=== PATIENT | male | born 1960 | race Caucasian/White ===

== ENCOUNTER 2020-01-17 20:04 | Inpatient (IN) ==
[~2020-01-17 20:04] MED LIST: PATIENT'S HEIGHT AND/OR WEIGHT NEEDED SCH
[2020-01-17] MEDS ORDERED: SUCCINYLCHOLINE CHLORIDE 20 MG/ML 10 ML VIAL IV ONE (20:05)
[2020-01-17] MEDS ORDERED: ETOMIDATE 2 MG/ML 20 ML VIAL IV ONE ×2 (20:05→20:19)
[2020-01-17] MEDS ORDERED: RAPID SEQUENCE INDUCTION BAG ONE (20:16)
[2020-01-17] MEDS ORDERED: SUCCINYLCHOLINE CHLORIDE 20 MG/ML 10 ML VIAL IV STA (20:19)
[2020-01-17] MEDS ORDERED: STAT IV Infusion **Titration per Protocol STA (20:21)
[2020-01-17] MEDS ORDERED: PROPOFOL IV EMULSION 10 MG/ML 100 ML VIAL IV ONE (20:27)
[2020-01-17] MEDS ORDERED: SODIUM CHLORIDE 0.9% 1000ML 2,000 ML IV ONE (20:30)
[2020-01-17 20:36] LABS: Hematocrit (blood only) 43.6 % (42-52); Mean Corpuscular Hemoglobin 32.8 pg (25-34); Mean Corpuscular Hgb Conc 32.1 g/dL (32-36); Mean Corpuscular Volume 102.1 fL (80-100); Mean Platelet Volume 9.4 fL (7.4-10.4); Platelet Count 277 K/uL (130-400); RDW Coefficient of Variation 13.7 % (11.5-14.5); RDW Standard Deviation 51.5 fL (36.4-46.3); Red Blood Count 4.27 M/uL (4.7-6.1); White Blood Count 19.45 K/uL (4.8-10.8)
[2020-01-17] MEDS ORDERED: propofoL 1,000 MG/100 ML VIAL IV SCH (20:38)
[2020-01-17 20:45] LABS: iSTAT Creatinine 0.8 mg/dl (0.6-1.3); iSTAT Hemoglobin 15.3 g/dl (14.0-18.0); iSTAT Ionized Calcium 1.28 mmol/l (1.12-1.32); iSTAT Potassium 3.4 mmol/L (3.3-5.0)
--- NOTE | 2020-01-17 20:51 | XRay Report ---
XR chest 1V portable CLINICAL HISTORY: post intubation RESPIRATORY FAILURE COMPARISON STUDY: 05/08/2008 FINDINGS: The heart is borderline enlarged. There is a nasogastric tube which passes into the stomach . There is an endotracheal tube positioned 6 cm above the irene. Underlying emphysema is suspected. There are scattered interstitial opacities likely atelectatic. There is no lobar consolidation. There is no overt failure.[ IMPRESSION: 1. Endotracheal tube 6 cm above the irene 2. Nasogastric tube within the stomach 3. Scattered interstitial opacities likely atelectatic ACT 112: Negative or not required by law. Electronically signed by: Hubert Crooks M.D. 01/17/2020 8:50 PM
[2020-01-17 20:52] LABS: Partial Thromboplastin Ratio 0.9; Partial Thromboplastin Time 25.7 Seconds (21.0-31.0); Prothrombin Time 10.5 Seconds (9.0-12.0)
[2020-01-17 20:55] LABS: Alanine Aminotransferase 61 U/L (12-78); Albumin Level 3.7 gm/dl (3.4-5.0); Aspartate Aminotransferase 26 U/L (15-37); BUN Creatinine Ratio 8.3 (10-20); Blood Urea Nitrogen 10 mg/dl (7-18); Calcium 8.8 mg/dl (8.5-10.1); Carbon Dioxide 22 mmol/L (21-32); Chloride 105 mmol/L (98-107); Creatinine Clr Calc Pharmacy 71.5 ml/min; Est GFR (African American) 78.1; Est GFR (Non-African American) 67.4; Glucose 248 mg/dl (70-99); Magnesium 2.1 mg/dl (1.8-2.4); Potassium 3.3 mmol/L (3.5-5.1); Sodium 139 mmol/L (136-145)
--- NOTE | 2020-01-17 20:55 | Emergency Department Note ---
ED Provider Note NAME: IGNACIO ELLISON AGE: 59 SEX: M ARRIVES VIA: Ambulance INFORMANT: [EMS][Brother ] ED PROVIDER(S): [Titi Chandler MD] CHIEF COMPLAINT: Unresponsive IMPRESSION: Obtundation, Seizures, Aspiration pneumonia, Acidemia MEDICAL DECISION MAKING: The patient is a 59-year-old gentleman with a past medical bipolar disorder, narcissistic personality disorder, multiple prior episodes of overdoses with last admission in 2005 for overdose of Seroquel and prior overdoses of lithium and Tegretol who presents emergency department after becoming unresponsive when he was in the car with his brother, foaming at the mouth with no overt seizure- like activity reported but continued to be obtunded upon arrival by EMS and upon transfer the patient did have fasciculations of his left lower leg for which she was given 2 mg of Ativan with improvement. On arrival the patient is obtunded and unresponsive to painful stimulus. He does exhibit some subtle fasciculation of eyelids and eyes but otherwise no convulsions noted. There is no response to corneal stimulus though there is report of a history of being blind. The pa catie's GCS persisted to be 6 and so decision was made to intubate for airway protection after EMS report from POA that they would be okay with intubation. Intubation was performed without difficulty per procedure note. WBC 19.4, nonspecific possibly related to seizure activity. H/H and platelets within normal limits. VBG with pH of 7.07 with PCO2 of 79 prior to intubation. Chemistry without metabolic acidosis. No anion gap elevation. Creatinine 1.1. Glucose initially 250 however again without metabolic acidosis and improved to 160 after IV fluid hydration. Lactate 2.9. Troponin negative/undetectable. CPK within normal limits. UA without evidence of infection. Aspirin and Tyleno l levels were negative. Valproic acid level undetectable. [place] level 0.4, subtherapeutic. Marijuana screen was positive. Alcohol was negative. CT head was negative for ICH or acute process. CTA of the head and neck was also performed and unremarkable. This x-ray demonstrated scattered opacities which could likely be atelectatic however given the patient's obtundation and leukocytosis concern for possible aspiration. Patient was treated empirically with Zosyn. On discussion with ICU team and admitting team given no clear explanation for patient's presentation we agreed to proceed with lumbar puncture. Consent was obtained by from the brother Bean Ellison ([phone]) via phone who consents for the procedure. LP was successful per procedure note with clear CSF drawn with opening a pressure of 20 mm H2O. Of note, upon further discussion with brother he does report that the patient had full access to all his medications and so acknowledges that an overdose may have been possible though denies that the patient was feeling depressed or hopeless. CSF WBC 0, Glc 93, Protein 54. Biofire negative. Management per admitting team. Triage Nursing notes reviewed and agree them. [Prior medical records reviewed] Differential diagnosis: Infection, hypoglycemia, electrolyte abnormalities, overdose, toxicologic, card iac sources, intracerebral event, neurologic, trauma, as well as other pathologies. ER treatment provided: See below Diagnostics interpreted by me: ECG: Sinus Tachycardia, 113 bpm, incomplete RBBB, No ST elevation or depression. QTc 427, QRS 104 Cardiac Monitoring: Sinus tachycardia 113, no ectopy. Laboratory studies: [See below] [] Imaging studies: [See below] [] Consultation(s): [none] HPI: The patient is a 59-year-old gentleman with a past medical bipolar disorder, narcissistic personality disorder, multiple prior episodes of overdoses with last admission in 2005 for overdose of Seroquel and prior overdoses of lithium and Tegretol who presents emergency department after becoming unresponsive when he was in the car with his brother, foaming at the mouth with no overt seizure-like activity reported but continued to be obtunded upon arrival by EMS and upon transfer the patient did have fasciculations of his left lower leg for which she was given 2 mg of Ativan with improvement. HPI limited 2/2 patient's condition. Onset as abrupt. No known provoking factors. ROS: UTO due to patient's condition. PAST MEDICAL HISTORY:[See Below] PAST SURGICAL HISTORY:[See Below] FAMILY HISTORY:[See Below] SOCIAL HISTORY:[See Below] HOME MEDICATIONS:[See Below] ALLERGIES:[See Below] VITALS:[See Below] PHYSICAL EXAMINATION: GENERAL: Obtunded, Ill-appearing. HENT: Normocephalic, atraumatic. Oropharynx with dry mucous membranes and otherwise unremarkable. Poor dentition. EYES: Normal conjunctiva. Sclera non-icteric. 3mm and fixed. Subtle eyelid fasciculation. No corneal reflex. NECK: Supple. No nuchal rigidity. No JVD. RESPIRATORY: Scant intermittent rhonchi bilaterally and otherwise clear. CARDIAC: Tachycardic rate, normal rhythm. Extremities warm and well perfused. Pulses equal. ABDOMEN: Soft, non-distended. No tenderness to palpation. No rebound or guarding. No masses. RECTAL: Deferred. MUSCULOSKELETAL: Chest examination reveals no tenderness. The back is symmetrical on inspection without obvious abnormality. There is no CVA t enderness to palpation. No joint edema. LOWER EXTREMITIES: Calves are equal size bilaterally. No edema. No discoloration. NEURO: Eyes open, nonverbal, no motor response. GCS 6. No rigidity, DTRs wnl. 2 beats of clonus BLE. SKIN: No rash or jaundice noted. ED COURSE: Procedures: Endotracheal Intubation Indication obtundation/airway protection. The patient was on 100% oxygen via NRB prior to the procedure. Suction, airway equipment, RSI drugs, respiratory equipment, and appropriate personnel were prepared prior to the initiation of the procedure. A time out was taken. Induction was performed with etomidate and paralyzed with succinylcholine. After observing the clinical benefit of the medications, the airway was easily visualized utilizing direct visualization with MAC 3. A 8.0 size ETT tube was placed atraumatically to 22 cm using standard technique. The cuff inflated without signs of malfunction. There were bilateral breath sounds, positive colormetric change, no gastric sounds, a good capnography waveform, and post procedure pulse oximetry was 100% %. Post intubation sedation and paralysis was administered using propofol. There were no complications. Lumbar Puncture Indication: Obtundation / Seizures Verbal consent was obtained after the risks and benefits were explained, including but not limited to headache, bleeding/clotting, scarring, infection, pain, and bone/joint/nerve damage. At this time, the risks of the procedure are less than the risks of NOT performing the procedure. A time out was taken and the correct patient and site identified. The patient was placed in the right lateral decubitus position and the back was prepped with chlorhexidine and draped in the standard fashion. The L3 intervertebral space was identified, anesthetized locally with 1% lidocaine without epinephrine, and the spinal needle was inserted through the skin with the bevel parallel to the dural fibers. The needle was carefully advanced into the lumbar cistern with opening pressure of 20 mm H20 and 4 tubes of 26cc of clear CSF was obtained. The stylet was replaced and the needle was removed. A bandaid was placed and the patient was placed in the supine position. The patient tolerated the procedure well and there were no complications. Sent for Cell count, glucose, protein, GS and cx, as well as Biofire panel. [Critical Care:] I have personally spent greater than 135 minutes of critical care time in the direct management of this patient. This includes bedside care, interpretation of diagnostic studies, and testing, discussion with consultants, patient, and family members, and other required patient management activities. This 135 minutes is in excess of all separately billable procedures. Impression & Plan Obtundation, Seizures, Aspiration pneumonia, Acidemia Past Med/Surg History Medical History Bipolar disorder History of repeated overdose Social History Preferred Language: Dutch Communication Ability: unknown pt Current Living Situation: Family Other Information That Helps Us Care for You: No Smoking Status: Unknown if ever smoked Results & Data Vital Signs Vital Signs - 24 hr 01/17/20 20:05 01/17/20 20:15 01/17/20 20:38 Temperature Pulse Rate 114 H 99 H Pulse Rate from SpO2 Sensor 98 H Pulse Rhythm Regular Pulse Strength Normal Respiratory Rate 25 H 16 Respiratory Pattern Agonal Blood Pressure 175/86 H 126/70 Blood Pressure Mean 115 85 Pulse Oximetry 95 86 L 95 Oxygen Delivery Method Non-rebreather Room Air Oxygen Flow Rate 15 Fraction of Inspired Oxygen Sepsis Recent Fever Within 48 Hours No Sepsis Action Taken by Nursing No Action Required 01/17/20 20:40 01/17/20 20:41 01/17/20 21:01 Temperature Pulse Rate 98 H 102 H 102 H Pulse Rate from SpO2 Sensor 100 H 101 H Pulse Rhythm Pulse Strength Respiratory Rate 14 21 21 Respiratory Pattern Blood Pressure 123/67 126/70 Blood Pressure Mean 88 89 Pulse Oximetry 95 96 96 Oxygen Delivery Method Mechanical Vent Mechanical Vent Oxygen Flow Rate Fraction of Inspired Oxygen 40 50 40 Sepsis Recent Fever Within 48 Hours Sepsis Action Taken by Nursing 01/17/20 21:10 01/17/20 21:20 01/17/20 21:30 Temperature Pulse Rate 100 H 96 H 94 H Pulse Rate from SpO2 Sensor 100 H 96 H 93 H Pulse Rhythm Pulse Strength Respiratory Rate 16 15 16 Respiratory Pattern Blood Pressure 122/69 117/67 120/69 Blood Pressure Mean 90 84 90 Pulse Oximetry 96 96 96 Oxygen Delivery Method Mechanical Vent Mechanical Vent Mechanical Vent Oxygen Flow Rate Fraction of Inspired Oxygen 40 40 40 Sepsis Recent Fever Within 48 Hours Sepsis Action Taken by Nursing 01/17/20 21:40 01/17/20 21:50 01/17/20 22:00 Temperature Pulse Rate 90 90 86 Pulse Rate from SpO2 Sensor 90 90 86 Pulse Rhythm Pulse Strength Respiratory Rate 14 20 20 Respiratory Pattern Blood Pressure 116/66 115/69 108/68 Blood Pressure Mean 84 82 76 Pulse Oximetry 96 96 98 Oxygen Delivery Method Oxygen Flow Rate Fraction of Inspired Oxygen Sepsis Recent Fever Within 48 Hours Sepsis Action Taken by Nursing 01/17/20 22:10 01/17/20 22:20 01/17/20 22:30 Temperature Pulse Rate 82 79 74 Pulse Rate from SpO2 Sensor 82 79 74 Pulse Rhythm Pulse Strength Respiratory Rate 20 20 20 Respiratory Pattern Blood Pressure 108/67 103/66 102/65 Blood Pressure Mean 79 78 74 Pulse Oximetry 99 99 98 Oxygen Delivery Method Oxygen Flow Rate Fraction of Inspired Oxygen Sepsis Recent Fever Within 48 Hours Sepsis Action Taken by Nursing 01/17/20 22:35 01/17/20 22:40 01/17/20 22:50 Temperature 36.6 C Pulse Rate 75 77 72 Pulse Rate from SpO2 Sensor 77 72 Pulse Rhythm Pulse Strength Respiratory Rate 20 20 22 Respiratory Pattern Blood Pressure 108/69 94/59 L Blood Pressure Mean 82 78 Pulse Oximetry 99 98 95 Oxygen Delivery Method Oxygen Flow Rate Fraction of Inspired Oxygen 40 Sepsis Recent Fever Within 48 Hours Sepsis Action Taken by Nursing 01/17/20 22:52 01/17/20 23:00 Temperature Pulse Rate 70 73 Pulse Rate from SpO2 Sensor 71 72 Pulse Rhythm Pulse Strength Respiratory Rate 20 24 Respiratory Pattern Blood Pressure 109/68 100/55 L Blood Pressure Mean 82 71 Pulse Oximetry 95 98 Oxygen Delivery Method Oxygen Flow Rate Fraction of Inspired Oxygen Sepsis Recent Fever Within 48 Hours Sepsis Action Taken by Detention Medications Current Medication List: was personally reviewed by me Laboratory Data Attestation: I reviewed the patient's lab results. Result diagrams: 01/17/20 20:05 01/17/20 20:05 Lab Results 03/15/20 03/15/20 03/15/20 Range/Units 20:05 20:05 20:05 WBC 19.45 H (4.8-10.8) K/uL RBC 4.27 L (4.7-6.1) M/uL Hgb 14.0 (14.0-18.0) g/dL POC Hgb (14.0-18.0) g/dl Hct 43.6 (42-52) % POC Hct (42-52) % MCV 102.1 H (80-100) fL MCH 32.8 (25-34) pg MCHC 32.1 (32-36) g/dL RDW Std Deviation 51.5 H (36.4-46.3) fL RDW Coeff of Joey 13.7 (11.5-14.5) % Plt Count 277 (130-400) K/uL MPV 9.4 (7.4-10.4) fL Immature Gran % (Auto) 1.7 % Neut % (Auto) 71.8 % Lymph % (Auto) 15.2 % [place] % (Auto) 6.2 % Eos % (Auto) 4.4 % Baso % (Auto) 0.7 % Immature Gran # (Auto) 0.34 H (0.00-0.02) K/uL Neut # (Auto) 13.98 H (1.4-6.5) K/uL Lymph # (Auto) 2.95 (1.2-3.4) K/uL [place] # (Auto) 1.20 H (0.11-0.59) K/uL Eos # (Auto) 0.85 H (0-0.5) K/uL Baso # (Auto) 0.13 (0-0.2) K/uL PT 10.5 (9.0-12.0) Seconds INR 1.0 (0.9-1.1) APTT 25.7 (21.0-31.0) Seconds PTT Ratio 0.9 POC pH (7.35-7.45) POC pCO2 (35-46) mmHg POC pO2 (80-95) mmHg POC HCO3 (19-24) adir/L POC Base Excess (-9-1.8) adri/L VBG pH (7.36-7.41) VBG pCO2 (38-50) mmHg VBG pO2 mmHg VBG HCO3 mmol/L VBG O2 Saturation % VBG Base Excess mEq/L Barometric Pressure mm/Hg POC Sodium (135-144) mmol/L Sodium 139 (136-145) mmol/L POC Potassium (3.3-5.0) mmol/L Potassium 3.3 L (3.5-5.1) mmol/L POC Chloride (101-112) mmol/L Chloride 105 (98-107) mmol/L Carbon Dioxide 22 (21-32) mmol/L POC Total CO2 (24-31) mEq/l Anion Gap 12.0 H (3-11) POC Anion Gap (16-25) mmol/L POC BUN (7-18) mg/dl BUN 10 (7-18) mg/dl Creatinine 1.17 (0.6-1.4) mg/dl POC Creatinine (0.6-1.3) mg/dl Est Cr Clr Drug Dosing 71.5 ml/min Est GFR ( Amer) 78.1 Est GFR (Non-Af Amer) 67.4 BUN/Creatinine Ratio 8.3 L (10-20) Glucose 248 H (70-99) mg/dl POC Glucose (70-99) mg/dl POC Glucose (other) (70-99) mg/dl Lactate (0.4-2.0) mmol/L Calcium 8.8 (8.5-10.1) mg/dl POC Ioniz Calcium Derek (1.12-1.32) mmol/l Phosphorus 5.4 H (2.5-4.9) mg/dl Magnesium 2.1 (1.8-2.4) mg/dl Total Bilirubin 0.2 (0.2-1) mg/dl AST 26 (15-37) U/L ALT 61 (12-78) U/L Alkaline Phosphatase 110 (45-117) U/L Total Creatine Kinase 162 (39-308) U/L Troponin I < 0.015 (0-0.045) ng/ml Total Protein 8.0 (6.4-8.2) gm/dl Albumin 3.7 (3.4-5.0) gm/dl Globulin 4.3 H (2.5-4.0) gm/dl Albumin/Globulin Ratio 0.9 (0.9-2) TSH 7.670 H (0.300-4.500) uIu/ml Free T4 0.74 L (0.8-1.6) ng/dl Urine Color Urine Appearance (Clear) Urine pH (4.5-7.5) Ur Specific [place] (1.000-1.030) Urine Protein (Negative) Urine Glucose (UA) (Negative) Urine Ketones (Negative) Urine Blood (Negative) Urine Nitrite (Negative) Urine Bilirubin (Negative) Urine Urobilinogen (Negative) Ur Leukocyte Esterase (Negative) Urine RBC (0-4) /hpf Urine WBC (0-5) /hpf Ur Epithelial Cells (0-5) /lpf Amorphous Sediment (None Prsent) Urine Bacteria (Negative) Urine Sperm (None Prsent) Salicylates (2.8-20) mg/dl Urine Opiates Screen (Neg) Ur Methadone, Qual (Neg) Acetaminophen (10-30) ug/ml Urine Barbiturates (Neg) Valproic Acid (50-100) mcg/ml Ur Phencyclidine (PCP) (Neg) U Amphetamin/Meth Scrn (Neg) MDMA (Ecstasy) Screen (Neg) U Benzodiazepines Scrn (Neg) [place] (0.6-1.2) mmol/L Ur Cocaine Metabolite (Neg) U Marijuana (THC) Screen (Neg) Ethyl Alcohol mg/dL (0-3) mg/dl 01/17/20 01/17/20 01/17/20 Range/Units 20:05 20:12 20:32 WBC (4.8-10.8) K/uL RBC (4.7-6.1) M/uL Hgb (14.0-18.0) g/dL POC Hgb 15.3 (14.0-18.0) g/dl Hct (42-52) % POC Hct 45 (42-52) % MCV (80-100) fL MCH (25-34) pg MCHC (32-36) g/dL RDW Std Deviation (36.4-46.3) fL RDW Coeff of Joey (11.5-14.5) % Plt Count (130-400) K/uL MPV (7.4-10.4) fL Immature Gran % (Auto) % Neut % (Auto) % Lymph % (Auto) % [place] % (Auto) % Eos % (Auto) % Baso % (Auto) % Immature Gran # (Auto) (0.00-0.02) K/uL Neut # (Auto) (1.4-6.5) K/uL Lymph # (Auto) (1.2-3.4) K/uL [place] # (Auto) (0.11-0.59) K/uL Eos # (Auto) (0-0.5) K/uL Baso # (Auto) (0-0.2) K/uL PT (9.0-12.0) Seconds INR (0.9-1.1) APTT (21.0-31.0) Seconds PTT Ratio POC pH (7.35-7.45) POC pCO2 (35-46) mmHg POC pO2 (80-95) mmHg POC HCO3 (19-24) adri/L POC Base Excess (-9-1.8) adri/L VBG pH (7.36-7.41) VBG pCO2 (38-50) mmHg VBG pO2 mmHg VBG HCO3 mmol/L VBG O2 Saturation % VBG Base Excess mEq/L Barometric Pressure mm/Hg POC Sodium 139 (135-144) mmol/L Sodium (136-145) mmol/L POC Potassium 3.4 (3.3-5.0) mmol/L Potassium (3.5-5.1) mmol/L POC Chloride 105 (101-112) mmol/L Chloride (98-107) mmol/L Carbon Dioxide (21-32) mmol/L POC Total CO2 24 (24-31) mEq/l Anion Gap (3-11) POC Anion Gap 14.0 L (16-25) mmol/L POC BUN 9 (7-18) mg/dl BUN (7-18) mg/dl Creatinine (0.6-1.4) mg/dl POC Creatinine 0.8 (0.6-1.3) mg/dl Est Cr Clr Drug Dosing ml/min Est GFR ( Amer) Est GFR (Non-Af Amer) BUN/Creatinine Ratio (10-20) Glucose (70-99) mg/dl POC Glucose 207 H (70-99) mg/dl POC Glucose (other) 252 H (70-99) mg/dl Lactate (0.4-2.0) mmol/L Calcium (8.5-10.1) mg/dl POC Ioniz Calcium Derek 1.28 (1.12-1.32) mmol/l Phosphorus (2.5-4.9) mg/dl Magnesium (1.8-2.4) mg/dl Total Bilirubin (0.2-1) mg/dl AST (15-37) U/L ALT (12-78) U/L Alkaline Phosphatase (45-117) U/L Total Creatine Kinase (39-308) U/L Troponin I (0-0.045) ng/ml Total Protein (6.4-8.2) gm/dl Albumin (3.4-5.0) gm/dl Globulin (2.5-4.0) gm/dl Albumin/Globulin Ratio (0.9-2) TSH (0.300-4.500) uIu/ml Free T4 (0.8-1.6) ng/dl Urine Color Urine Appearance (Clear) Urine pH (4.5-7.5) Ur Specific [place] (1.000-1.030) Urine Protein (Negative) Urine Glucose (UA) (Negative) Urine Ketones (Negative) Urine Blood (Negative) Urine Nitrite (Negative) Urine Bilirubin (Negative) Urine Urobilinogen (Negative) Ur Leukocyte Esterase (Negative) Urine RBC (0-4) /hpf Urine WBC (0-5) /hpf Ur Epithelial Cells (0-5) /lpf Amorphous Sediment (None Prsent) Urine Bacteria (Negative) Urine Sperm (None Prsent) Salicylates < 1.7 L (2.8-20) mg/dl Urine Opiates Screen (Neg) Ur Methadone, Qual (Neg) Acetaminophen < 2 L (10-30) ug/ml Urine Barbiturates (Neg) Valproic Acid < 3 L (50-100) mcg/ml Ur Phencyclidine (PCP) (Neg) U Amphetamin/Meth Scrn (Neg) MDMA (Ecstasy) Screen (Neg) U Benzodiazepines Scrn (Neg) [place] 0.4 L (0.6-1.2) mmol/L Ur Cocaine Metabolite (Neg) U Marijuana (THC) Screen (Neg) Ethyl Alcohol mg/dL (0-3) mg/dl 01/17/20 01/17/20 01/17/20 Range/Units 21:05 21:05 21:11 WBC (4.8-10.8) K/uL RBC (4.7-6.1) M/uL Hgb (14.0-18.0) g/dL POC Hgb (14.0-18.0) g/dl Hct (42-52) % POC Hct (42-52) % MCV (80-100) fL MCH (25-34) pg MCHC (32-36) g/dL RDW Std Deviation (36.4-46.3) fL RDW Coeff of Joey (11.5-14.5) % Plt Count (130-400) K/uL MPV (7.4-10.4) fL Immature Gran % (Auto) % Neut % (Auto) % Lymph % (Auto) % [place] % (Auto) % Eos % (Auto) % Baso % (Auto) % Immature Gran # (Auto) (0.00-0.02) K/uL Neut # (Auto) (1.4-6.5) K/uL Lymph # (Auto) (1.2-3.4) K/uL [place] # (Auto) (0.11-0.59) K/uL Eos # (Auto) (0-0.5) K/uL Baso # (Auto) (0-0.2) K/uL PT (9.0-12.0) Seconds INR (0.9-1.1) APTT (21.0-31.0) Seconds PTT Ratio POC pH (7.35-7.45) POC pCO2 (35-46) mmHg POC pO2 (80-95) mmHg POC HCO3 (19-24) adri/L POC Base Excess (-9-1.8) adri/L VBG pH (7.36-7.41) VBG pCO2 (38-50) mmHg VBG pO2 mmHg VBG HCO3 mmol/L VBG O2 Saturation % VBG Base Excess mEq/L Barometric Pressure mm/Hg POC Sodium (135-144) mmol/L Sodium (136-145) mmol/L POC Potassium (3.3-5.0) mmol/L Potassium (3.5-5.1) mmol/L POC Chloride (101-112) mmol/L Chloride (98-107) mmol/L Carbon Dioxide (21-32) mmol/L POC Total CO2 (24-31) mEq/l Anion Gap (3-11) POC Anion Gap (16-25) mmol/L POC BUN (7-18) mg/dl BUN (7-18) mg/dl Creatinine (0.6-1.4) mg/dl POC Creatinine (0.6-1.3) mg/dl Est Cr Clr Drug Dosing ml/min Est GFR ( Amer) Est GFR (Non-Af Amer) BUN/Creatinine Ratio (10-20) Glucose (70-99) mg/dl POC Glucose (70-99) mg/dl POC Glucose (other) (70-99) mg/dl Lactate 2.9 H* (0.4-2.0) mmol/L Calcium (8.5-10.1) mg/dl POC Ioniz Calcium Derek (1.12-1.32) mmol/l Phosphorus (2.5-4.9) mg/dl Magnesium (1.8-2.4) mg/dl Total Bilirubin (0.2-1) mg/dl AST (15-37) U/L ALT (12-78) U/L Alkaline Phosphatase (45-117) U/L Total Creatine Kinase (39-308) U/L Troponin I (0-0.045) ng/ml Total Protein (6.4-8.2) gm/dl Albumin (3.4-5.0) gm/dl Globulin (2.5-4.0) gm/dl Albumin/Globulin Ratio (0.9-2) TSH (0.300-4.500) uIu/ml Free T4 (0.8-1.6) ng/dl Urine Color Yellow Urine Appearance Slightly Cloudy (Clear) Urine pH 6.0 (4.5-7.5) Ur Specific [place] 1.025 (1.000-1.030) Urine Protein 2+ H (Negative) Urine Glucose (UA) 1+ H (Negative) Urine Ketones Negative (Negative) Urine Blood 1+ H (Negative) Urine Nitrite Negative (Negative) Urine Bilirubin Negative (Negative) Urine Urobilinogen Negative (Negative) Ur Leukocyte Esterase Negative (Negative) Urine RBC 5-10 H (0-4) /hpf Urine WBC 0-5 (0-5) /hpf Ur Epithelial Cells 0-5 (0-5) /lpf Amorphous Sediment Present A (None Prsent) Urine Bacteria Negative (Negative) Urine Sperm Present A (None Prsent) Salicylates (2.8-20) mg/dl Urine Opiates Screen Neg (Neg) Ur Methadone, Qual Neg (Neg) Acetaminophen (10-30) ug/ml Urine Barbiturates Neg (Neg) Valproic Acid (50-100) mcg/ml Ur Phencyclidine (PCP) Neg (Neg) U Amphetamin/Meth Scrn Neg (Neg) MDMA (Ecstasy) Screen Neg (Neg) U Benzodiazepines Scrn Neg (Neg) [place] (0.6-1.2) mmol/L Ur Cocaine Metabolite Neg (Neg) U Marijuana (THC) Screen Pos H (Neg) Ethyl Alcohol mg/dL (0-3) mg/dl 01/17/20 01/17/20 01/17/20 Range/Units 21:11 21:30 21:46 WBC (4.8-10.8) K/uL RBC (4.7-6.1) M/uL Hgb (14.0-18.0) g/dL POC Hgb (14.0-18.0) g/dl Hct (42-52) % POC Hct (42-52) % MCV (80-100) fL MCH (25-34) pg MCHC (32-36) g/dL RDW Std Deviation (36.4-46.3) fL RDW Coeff of Joey (11.5-14.5) % Plt Count (130-400) K/uL MPV (7.4-10.4) fL Immature Gran % (Auto) % Neut % (Auto) % Lymph % (Auto) % [place] % (Auto) % Eos % (Auto) % Baso % (Auto) % Immature Gran # (Auto) (0.00-0.02) K/uL Neut # (Auto) (1.4-6.5) K/uL Lymph # (Auto) (1.2-3.4) K/uL [place] # (Auto) (0.11-0.59) K/uL Eos # (Auto) (0-0.5) K/uL Baso # (Auto) (0-0.2) K/uL PT (9.0-12.0) Seconds INR (0.9-1.1) APTT (21.0-31.0) Seconds PTT Ratio POC pH (7.35-7.45) POC pCO2 (35-46) mmHg POC pO2 (80-95) mmHg POC HCO3 (19-24) adri/L POC Base Excess (-9-1.8) adri/L VBG pH 7.07 L (7.36-7.41) VBG pCO2 79 H (38-50) mmHg VBG pO2 73 mmHg VBG HCO3 23 mmol/L VBG O2 Saturation 91.3 % VBG Base Excess -8.5 mEq/L Barometric Pressure 743.6 mm/Hg POC Sodium (135-144) mmol/L Sodium (136-145) mmol/L POC Potassium (3.3-5.0) mmol/L Potassium (3.5-5.1) mmol/L POC Chloride (101-112) mmol/L Chloride (98-107) mmol/L Carbon Dioxide (21-32) mmol/L POC Total CO2 (24-31) mEq/l Anion Gap (3-11) POC Anion Gap (16-25) mmol/L POC BUN (7-18) mg/dl BUN (7-18) mg/dl Creatinine (0.6-1.4) mg/dl POC Creatinine (0.6-1.3) mg/dl Est Cr Clr Drug Dosing ml/min Est GFR ( Amer) Est GFR (Non-Af Amer) BUN/Creatinine Ratio (10-20) Glucose (70-99) mg/dl POC Glucose 168 H (70-99) mg/dl POC Glucose (other) (70-99) mg/dl Lactate (0.4-2.0) mmol/L Calcium (8.5-10.1) mg/dl POC Ioniz Calcium Derek (1.12-1.32) mmol/l Phosphorus (2.5-4.9) mg/dl Magnesium (1.8-2.4) mg/dl Total Bilirubin (0.2-1) mg/dl AST (15-37) U/L ALT (12-78) U/L Alkaline Phosphatase (45-117) U/L Total Creatine Kinase (39-308) U/L Troponin I (0-0.045) ng/ml Total Protein (6.4-8.2) gm/dl Albumin (3.4-5.0) gm/dl Globulin (2.5-4.0) gm/dl Albumin/Globulin Ratio (0.9-2) TSH (0.300-4.500) uIu/ml Free T4 (0.8-1.6) ng/dl Urine Color Urine Appearance (Clear) Urine pH (4.5-7.5) Ur Specific [place] (1.000-1.030) Urine Protein (Negative) Urine Glucose (UA) (Negative) Urine Ketones (Negative) Urine Blood (Negative) Urine Nitrite (Negative) Urine Bilirubin (Negative) Urine Urobilinogen (Negative) Ur Leukocyte Esterase (Negative) Urine RBC (0-4) /hpf Urine WBC (0-5) /hpf Ur Epithelial Cells (0-5) /lpf Amorphous Sediment (None Prsent) Urine Bacteria (Negative) Urine Sperm (None Prsent) Salicylates (2.8-20) mg/dl Urine Opiates Screen (Neg) Ur Methadone, Qual (Neg) Acetaminophen (10-30) ug/ml Urine Barbiturates (Neg) Valproic Acid (50-100) mcg/ml Ur Phencyclidine (PCP) (Neg) U Amphetamin/Meth Scrn (Neg) MDMA (Ecstasy) Screen (Neg) U Benzodiazepines Scrn (Neg) [place] (0.6-1.2) mmol/L Ur Cocaine Metabolite (Neg) U Marijuana (THC) Screen (Neg) Ethyl Alcohol mg/dL < 3.0 (0-3) mg/dl 01/17/20 Range/Units 22:55 WBC (4.8-10.8) K/uL RBC (4.7-6.1) M/uL Hgb (14.0-18.0) g/dL POC Hgb 11.9 L (14.0-18.0) g/dl Hct (42-52) % POC Hct 35 L (42-52) % MCV (80-100) fL MCH (25-34) pg MCHC (32-36) g/dL RDW Std Deviation (36.4-46.3) fL RDW Coeff of Joey (11.5-14.5) % Plt Count (130-400) K/uL MPV (7.4-10.4) fL Immature Gran % (Auto) % Neut % (Auto) % Lymph % (Auto) % [place] % (Auto) % Eos % (Auto) % Baso % (Auto) % Immature Gran # (Auto) (0.00-0.02) K/uL Neut # (Auto) (1.4-6.5) K/uL Lymph # (Auto) (1.2-3.4) K/uL [place] # (Auto) (0.11-0.59) K/uL Eos # (Auto) (0-0.5) K/uL Baso # (Auto) (0-0.2) K/uL PT (9.0-12.0) Seconds INR (0.9-1.1) APTT (21.0-31.0) Seconds PTT Ratio POC pH 7.25 L (7.35-7.45) POC pCO2 54 H (35-46) mmHg POC pO2 74 L (80-95) mmHg POC HCO3 24 (19-24) adri/L POC Base Excess -3.0 (-9-1.8) adri/L VBG pH (7.36-7.41) VBG pCO2 (38-50) mmHg VBG pO2 mmHg VBG HCO3 mmol/L VBG O2 Saturation % VBG Base Excess mEq/L Barometric Pressure mm/Hg POC Sodium 139 (135-144) mmol/L Sodium (136-145) mmol/L POC Potassium 4.3 (3.3-5.0) mmol/L Potassium (3.5-5.1) mmol/L POC Chloride (101-112) mmol/L Chloride (98-107) mmol/L Carbon Dioxide (21-32) mmol/L POC Total CO2 25 (24-31) mEq/l Anion Gap (3-11) POC Anion Gap (16-25) mmol/L POC BUN (7-18) mg/dl BUN (7-18) mg/dl Creatinine (0.6-1.4) mg/dl POC Creatinine (0.6-1.3) mg/dl Est Cr Clr Drug Dosing ml/min Est GFR ( Amer) Est GFR (Non-Af Amer) BUN/Creatinine Ratio (10-20) Glucose (70-99) mg/dl POC Glucose (70-99) mg/dl POC Glucose (other) (70-99) mg/dl Lactate (0.4-2.0) mmol/L Calcium (8.5-10.1) mg/dl POC Ioniz Calcium Derek (1.12-1.32) mmol/l Phosphorus (2.5-4.9) mg/dl Magnesium (1.8-2.4) mg/dl Total Bilirubin (0.2-1) mg/dl AST (15-37) U/L ALT (12-78) U/L Alkaline Phosphatase (45-117) U/L Total Creatine Kinase (39-308) U/L Troponin I (0-0.045) ng/ml Total Protein (6.4-8.2) gm/dl Albumin (3.4-5.0) gm/dl Globulin (2.5-4.0) gm/dl Albumin/Globulin Ratio (0.9-2) TSH (0.300-4.500) uIu/ml Free T4 (0.8-1.6) ng/dl Urine Color Urine Appearance (Clear) Urine pH (4.5-7.5) Ur Specific [place] (1.000-1.030) Urine Protein (Negative) Urine Glucose (UA) (Negative) Urine Ketones (Negative) Urine Blood (Negative) Urine Nitrite (Negative) Urine Bilirubin (Negative) Urine Urobilinogen (Negative) Ur Leukocyte Esterase (Negative) Urine RBC (0-4) /hpf Urine WBC (0-5) /hpf Ur Epithelial Cells (0-5) /lpf Amorphous Sediment (None Prsent) Urine Bacteria (Negative) Urine Sperm (None Prsent) Salicylates (2.8-20) mg/dl Urine Opiates Screen (Neg) Ur Methadone, Qual (Neg) Acetaminophen (10-30) ug/ml Urine Barbiturates (Neg) Valproic Acid (50-100) mcg/ml Ur Phencyclidine (PCP) (Neg) U Amphetamin/Meth Scrn (Neg) MDMA (Ecstasy) Screen (Neg) U Benzodiazepines Scrn (Neg) [place] (0.6-1.2) mmol/L Ur Cocaine Metabolite (Neg) U Marijuana (THC) Screen (Neg) Ethyl Alcohol mg/dL (0-3) mg/dl Administered Medications Lactated Ringer's (Lr) 1,000 mls @ 150 mls/hr IV .Q6H40M DOC Stop: 02/16/20 23:29 Last Admin: 01/17/20 23:52 Dose: 150 mls/hr Documented by: [id number] Potassium Chloride ([place] / Wtr) 10 meq in 100 mls @ 100 mls/hr IV Q1H [facility] Stop: 01/18/20 03:59 Last Admin: 01/18/20 03:07 Dose: 100 mls/hr Documented by: [id number] Infusion: 01/18/20 03:05 Dose: 100 mls/hr Documented by: [id number] Admin: 01/18/20 02:05 Dose: 100 mls/hr Documented by: [id number] Acyclovir Sodium 750 mg/ (Dextrose) 265 mls @ 250 mls/hr IV Q8H [facility] Stop: 01/28/20 02:59 Last Admin: 01/18/20 02:59 Dose: 250 mls/hr Documented by: [id number] Discontinued Medications Etomidate (Amidate) 20 mg IV NOW ONE Stop: 01/17/20 20:20 Last Admin: 01/17/20 20:25 Dose: 20 mg Documented by: [id number] Propofol (Diprivan) 1,000 mg in 100 mls @ 2.7 mls/hr IV .Q24H DOC; Protocol Stop: 01/20/20 20:37 Last Admin: 01/17/20 22:54 Dose: 15 mcg/kg/min, 8.1 mls/hr Documented by: [id number] Cosigned by: [id number] Sodium Chloride (Nss 1000ml) 2,000 mls @ 999 mls/hr IV .Q2H1M ONE Stop: 01/17/20 22:30 Last Infusion: 01/17/20 21:42 Dose: 0 mls/hr Documented by: [id number] Admin: 01/17/20 20:51 Dose: 999 mls/hr Documented by: [id number] Piperacillin Sod/Tazobactam Sod (Zosyn) 4.5 gm in 120 mls @ 240 mls/hr IV NOW ONE Stop: 01/17/20 21:51 Last Infusion: 01/17/20 21:56 Dose: 0 mls/hr Documented by: [id number] Admin: 01/17/20 21:33 Dose: 240 mls/hr Documented by: [id number] Vancomycin HCl 1,750 mg/ (Sodium Chloride) 535 mls @ 200 mls/hr IV NOW ONE Stop: 01/18/20 00:02 Last Infusion: 01/18/20 00:26 Dose: 0 mls/hr Documented by: [id number] Admin: 01/17/20 21:36 Dose: 200 mls/hr Documented by: [id number] Levetiracetam 1,000 mg/ Sodium (Chloride) 110 mls @ 440 mls/hr IV NOW STA Stop: 01/17/20 23:13 Last Infusion: 01/17/20 23:30 Dose: 0 mls/hr Documented by: [id number] Admin: 01/17/20 23:13 Dose: 440 mls/hr Documented by: [id number] Insulin Aspart (Novolog Flexpen) 0 units SC ONE STA Stop: 01/17/20 23:24 Last Admin: 01/17/20 23:43 Dose: Not Given Documented by: [id number] Cosigned by: [id number] Insulin Glargine (Lantus Solostar Pen) 5 units SC NOW STA Stop: 01/17/20 23:16 Last Admin: 01/17/20 23:44 Dose: 5 units Documented by: [id number] Cosigned by: [id number] Ioversol (Optiray 320 125ml) 119 ml IV ONCE PRN PRN Reason: Interaction Checking Stop: 01/21/20 20:58 Last Admin: 01/17/20 20:59 Dose: 119 ml Documented by: [id number] Lorazepam (Ativan) Confirm Administered Dose 2 mg .ROUTE .STK-MED ONE Stop: 01/18/20 01:37 Last Admin: 01/18/20 01:50 Dose: 2 mg Documented by: [id number] Methylprednisolone (Solumedrol) 20 mg IV NOW STA Stop: 01/17/20 23:04 Last Admin: 01/17/20 23:08 Dose: 20 mg Documented by: [id number] Miscellaneous () Confirm Administered Dose 1 ea .ROUTE .STK-MED ONE Stop: 01/17/20 20:17 Last Admin: 01/17/20 20:20 Dose: 1 ea Documented by: [id number] Miscellaneous () 1 ea N/A NOW STA Stop: 01/17/20 20:22 Last Admin: 01/17/20 21:34 Dose: Not Given Documented by: [id number] Propofol (Diprivan) Confirm Administered Dose 1,000 mg IV .STK-MED ONE Stop: 01/17/20 20:28 Last Admin: 01/17/20 20:52 Dose: Not Given Documented by: [id number] Succinylcholine Chloride (Quelicin) 100 mg IV NOW STA Stop: 01/17/20 20:20 Last Admin: 01/17/20 20:25 Dose: 100 mg Documented by: [id number] Imaging Data Attestation: I personally reviewed and interpreted this imaging study as follows: Radiologist's Impression: XR chest 1V portable CLINICAL HISTORY: post intubation RESPIRATORY FAILURE COMPARISON STUDY: 05/08/2008 FINDINGS: The heart is borderline enlarged. There is a nasogastric tube which passes into the stomach. There is an endotracheal tube positioned 6 cm above the irene. Underlying emphysema is suspected. There are scattered interstitial opacities likely atelectatic. There is no lobar consolidation. There is no overt failure.[ IMPRESSION: 1. Endotracheal tube 6 cm above the irene 2. Nasogastric tube within the stomach 3. Scattered interstitial opacities likely atelectatic CT head/brain wo con CLINICAL HISTORY: Unresponsive patient. Possible stroke. COMPARISON STUDY: June 2006 TECHNIQUE: Axial CT of the brain is performed from the vertex to the skull base. IV contrast was not administered for this examination. A dose lowering technique was utilized adhering to the principles of ALARA. CT DOSE: FINDINGS: No intra or extra-axial mass lesions are visualized. There is no CT evidence of acute cortical infarction. There is no evidence of midline shift. There is no acute hemorrhage. No calvarial fractures are visualized. There are minor white matter hypodensities likely on a small vessel basis. There are atrophic changes. There is no evidence of pathologic ventricular dilatation. There is no evidence of acute sinusitis IMPRESSION: No acute intracranial findings -- CT angio head w con CLINICAL HISTORY: Obtunded patient. Unresponsive. Seizure activity. Possible stroke. TECHNIQUE: CT angiography of the head was performed in a dynamic helical fashion during intravenous administration of 119 cc of Optiray 320. MIP imaging was performed. A dose lowering technique was utilized adhering to the principles of ALARA. CT DOSE: 1215.62 mGy.cm COMPARISON STUDY: Noncontrast study dated June 2006 FINDINGS: The patient is intubated. There are no pathologically enhancing masses. There are no major intracranial branch occlusions. There are no lesion suspicious for aneurysm. The dural venous sinuses appear patent. IMPRESSION: Unremarkable CT angiography of the brain. -- CT angio neck with con CLINICAL HISTORY: obtundation, seizure activity POSSIBLE ACUTE STROKE COMPARISON STUDY: No previous studies for comparison. TECHNIQUE: CT angiography was performed from the aortic arch to the skull base. MIP imaging was performed. The patient was scanned in a dynamic helical fashion during intravenous administration of 119 cc of Optiray 320. A dose lowering technique was utilized adhering to the principles of ALARA. CT DOSE: Technique: CT angiogram of the carotid and vertebral arteries was obtained using intravenous contrast and 3-D reconstruction. NASCET criteria was utilized. Findings: There is moderate to severe pulmonary emphysema. A nasogastric tube and endotracheal tube are visualized. There is oropharyngeal fluid present. The right carotid revealed no evidence of aneurysm and no evidence of d issection. There is no evidence of hemodynamic significant stenosis. The left carotid revealed no evidence of hemodynamic significant stenosis. There is no evidence of aneurysm. There is no evidence of dissection. There is no evidence of hemodynamically significant vertebral stenosis. There is no evidence of vertebral dissection. IMPRESSION: No evidence of hemodynamically significant carotid or vertebral artery stenosis. No evidence of dissection. -- Blood Pressure Blood Pressure Findings: Elevated blood pressure Blood Pressure Disposition: elevated BP felt to be situational Discharge Plan Visit Data *Final* Discharge Date/Time: 01/18/20 01:13 Chief Complaint: Unresponsive Stated Complaint: SEIZURE, UNRESP., HYPOXIA ED Provider: Titi Chandler Discharge Problem: Obtundation, Seizures, Aspiration pneumonia, Acidemia Patient Disposition: Admitted As Inpatient Discharge Instructions Interventions: ED Discharge Assessment Last Done: 01/18/20 01:13 Meds Home Medications and Allergies Home Medications Medication Instructions Recorded Confirmed Type Q-Pap 650 mg PO UD PRN 01/17/20 History aripiprazole 15 mg PO HS 01/17/20 01/17/20 History fluvoxamine 100 mg PO HS 01/17/20 01/17/20 History ketoconazole 1 applic TOPICAL UD 01/17/20 01/17/20 History lithium carbonate 300 mg PO QAM 01/17/20 01/17/20 History lithium carbonate 600 mg PO HS 01/17/20 01/17/20 History venlafaxine 150 mg PO QAM 01/17/20 01/17/20 History Allergies Allergy/AdvReac Type Severity Reaction Status Date / Time No Known Allergies Allergy Unknown Verified 01/17/20 22:34
[2020-01-17] MEDS ORDERED: OPTIRAY 320 125ml IV PRN (20:59)
[2020-01-17 21:00] LABS: Albumin Globulin Ratio 0.9 (0.9-2); Alkaline Phosphatase 110 U/L (45-117); Bilirubin,Total 0.2 mg/dl (0.2-1); Globulin 4.3 gm/dl (2.5-4.0); Phosphorus 5.4 mg/dl (2.5-4.9)
--- NOTE | 2020-01-17 21:02 | CT Scan Report ---
CT head/brain wo con CLINICAL HISTORY: Unresponsive patient. Possible stroke. COMPARISON STUDY: June 2006 TECHNIQUE: Axial CT of the brain is performed from the vertex to the skull base. IV contrast was not administered for this examination. A dose lowering technique was utilized adhering to the principles of ALARA. CT DOSE: FINDINGS: No intra or extra-axial mass lesions are visualized. There is no CT evidence of acute cortical infarc tion. There is no evidence of midline shift. There is no acute hemorrhage. No calvarial fractures ar e visualized. There are minor white matter hypodensities likely on a small vessel basis. There are atrophic changes . There is no evidence of pathologic ventricular dilatation. There is no evidence of acute sinusitis IMPRESSION: No acute intracranial findings ACT 112: Negative or not required by law. Electronically signed by: Hubert Crooks M.D. 01/17/2020 9:01 PM
[2020-01-17 21:06] LABS: Basophils # (auto) 0.13 K/uL (0-0.2); Basophils % (auto) 0.7 %; Eosinophils # (auto) 0.85 K/uL (0-0.5); Eosinophils % (auto) 4.4 %; Immature Granulocytes # (auto) 0.34 K/uL (0.00-0.02); Immature Granulocytes % (auto) 1.7 %; Lymphocytes # (auto) 2.95 K/uL (1.2-3.4); Lymphocytes % (auto) 15.2 %; Monocytes % (auto) 6.2 %; Neutrophils # (auto) 13.98 K/uL (1.4-6.5); Neutrophils % (auto) 71.8 %
--- NOTE | 2020-01-17 21:07 | CT Scan Report ---
CT angio head w con CLINICAL HISTORY: Obtunded patient. Unresponsive. Seizure activity. Possible stroke. TECHNIQUE: CT angiography of the head was performed in a dynamic helical fashion during intravenous a dministration of 119 cc of Optiray 320. MIP imaging was performed. A dose lowering technique was util ized adhering to the principles of ALARA. CT DOSE: 1215.62 mGy.cm COMPARISON STUDY: Noncontrast study dated June 2006 FINDINGS: The patient is intubated. There are no pathologically enhancing masses. There are no major intracranial branch occlusions. There are no lesion suspicious for aneurysm. The dural venous sinuses appear patent. IMPRESSION: Unremarkable CT angiography of the brain. ACT 112: Negative or not required by law. Electronically signed by: Hubert Crooks M.D. 01/17/2020 9:06 PM
[2020-01-17 21:10] LABS: Creatine Kinase 162 U/L (39-308); Troponin I < 0.015 ng/ml (0-0.045)
--- NOTE | 2020-01-17 21:11 | CT Scan Report ---
CT angio neck with con CLINICAL HISTORY: obtundation, seizure activity POSSIBLE ACUTE STROKE COMPARISON STUDY: No previous studies for comparison. TECHNIQUE: CT angiography was performed from the aortic arch to the skull base. MIP imaging was perfo rmed. The patient was scanned in a dynamic helical fashion during intravenous administration of 119 c c of Optiray 320. A dose lowering technique was utilized adhering to the principles of ALARA. CT DOSE: Technique: CT angiogram of the carotid and vertebral arteries was obtained using intravenous contrast and 3-D reconstruction. NASCET criteria was utilized. Findings: There is moderate to severe pulmonary emphysema. A nasogastric tube and endotracheal tube are visuali zed. There is oropharyngeal fluid present. The right carotid revealed no evidence of aneurysm and no evidence of dissection. There is no evidenc e of hemodynamic significant stenosis. The left carotid revealed no evidence of hemodynamic significant stenosis. There is no evidence of an eurysm. There is no evidence of dissection. There is no evidence of hemodynamically significant vertebral stenosis. There is no evidence of verte bral dissection. IMPRESSION: No evidence of hemodynamically significant carotid or vertebral artery stenosis. No evidence of disse ction. ACT 112: Negative or not required by law. Electronically signed by: Hubert Crooks M.D. 01/17/2020 9:10 PM
[2020-01-17 21:19] LABS: Appearance Urine Slightly Cloudy (Clear); Bilirubin Urine Negative (Negative); Blood Urine 1+ (Negative); Color Urine Yellow; Glucose Urine UA 1+ (Negative); Ketones Urine Negative (Negative); Leukocyte Esterase Urine Negative (Negative); Nitrite Urine Negative (Negative); Protein Urine 2+ (Negative); Specific Gravity Urine 1.025 (1.000-1.030); Urobilinogen Urine Negative (Negative)
[2020-01-17 21:22] LABS: T4 Free Thyroxine 0.74 ng/dl (0.8-1.6)
[2020-01-17] MEDS ORDERED: PIPERACILLIN/TAZOBACTAM 4.5 GM/120 ML BAG IV ONE (21:22)
[2020-01-17] MEDS ORDERED: VANCOMYCIN CONSULT ACTIVE PRN (21:22)
[2020-01-17] MEDS ORDERED: VANCOMYCIN HCL 1,750 MG in SODIUM CHLORIDE 0.9% 500 ML IV ONE (21:22)
[2020-01-17] MEDS ORDERED: PIPERACILL/TAZOBAC CONSULT ACTIVE PRN (21:22)
[2020-01-17 21:26] LABS: Base Excess VBG -8.5 mEq/L; Oxygen Saturation VBG 91.3 %; pH VBG 7.07 (7.36-7.41)
[2020-01-17 21:28] LABS: Acetaminophen < 2 ug/ml (10-30)
[2020-01-17 21:29] LABS: Lithium 0.4 mmol/L (0.6-1.2); Salicylate < 1.7 mg/dl (2.8-20); Valproic Acid < 3 mcg/ml (50-100)
[2020-01-17 21:38] LABS: Bacteria Urine Negative (Negative); Sperm Urine Present (None Prsent); WBC Urine 0-5 /hpf (0-5)
[2020-01-17 21:39] LABS: Amorphous Sediment Urine Present (None Prsent); Epithelial Cell Urine 0-5 /lpf (0-5)
[2020-01-17 21:45] LABS: Amphetamines+Metham, Urine Neg (Neg); Barbiturates, Urine Neg (Neg); Benzodiazepine, Urine Neg (Neg); Cocaine, Urine Neg (Neg); MDMA (Ecstacy), Urine Neg (Neg); Methadone, Urine Neg (Neg); Opiate, Urine Neg (Neg); Phencyclidine, Urine Neg (Neg)
[2020-01-17] MEDS ORDERED: levETIRAcetam 1,000 MG in 0.9 % SODIUM CHLORIDE 100 ML IV STA (22:59)
--- NOTE | 2020-01-17 22:59 | History & Physical Report ---
Date of Service January 17, 2020 Assessment & Plan (1) Acute hypoxemic respiratory failure: Hypoxemic, hypercapnic respiratory failure likely secondary to aspiration pneumonitis secondary to breakthrough seizure hx seizure disorder secondary to anoxic brain injury off Depakote since 2010 as per outpatient records Respiratory acidosis secondary to above Severe sepsis SIRS plus lactic acid elevation plus hypoxemia plus encephalopathy secondary to aspiration pneumonitis hx COPD as per records, past tobacco abuse hx mood disorder/personality disorder Hypokalemia Hyperglycemia rule out DM Functional disability ICU Vent management Solu-Medrol 1 dose for possible COPD exacerbation secondary to aspiration pneumonitis Nebs RTC while on vent Cultures, Zosyn follow lactic acid, IVF Keppra load EEG, Neurology consult RE breakthrough seizures Replace electrolytes Check hemoglobin A1c PT OT eval once patient extubated DVT prophylaxis per Lovenox subcu Full code Patient's brother requesting updates for providers. Mr. Bean More, contact #[phone], [phone]. Total critical care time was 40 minutes. Text document was generated using [employer] voice recognition software. It may contain grammatical or spelling errors. Kindly contact undersigned for clarification of any documentation item in question. History of Present Illness Chief Complaint: Unresponsiveness as per family Primary Care Provider: Dr. Vidales History obtained from ER provider, family, and records. Unable to obtain history from patient secondary to intubated state. Medical history significant for mood disorder, personality disorder, COPD, past tobacco abuse, history anoxic brain damage as per records. Remote confinement June 04 to July 24, 2006 for anoxic encephalopathy secondary to outpatient cardiopulmonary arrest secondary to polysubstance overdose sp ROSC sp intubation. Possible seizure activity noted during co nfinement. Patient discharged on Depakote. Patient discharged to rehab. Since rehab discharge, patient has been living with mother due to inability to care for self. Patient ran out of Depakote prescription 2010 as per records. [place] [facility] [place] July 2018 for one-time episode of handshaking/spells of trembling. Outpatient MRI showed mild to moderate global volume loss with chronic microvascular changes. Occipital lobe findings related to remote insult. EEG showed abnormal awake and drowsy activity due to intermittent generalized slowing suggestive of mild nonspecific encephalopathy. No evidence of focal slowing or epileptiform activity. ER consultation recommended for recurrence of trembling episodes as per records. Patient's mother (primary caregiver) has not been doing well the last few months due to lung cancer. Patient not eating as much as per recent outpatient PCP visit last month. Self-limiting emesis episode 2 weeks ago as per records. Patient noted by brother to have decreased responsiveness in the car a few hours ago. Some head shaking along with left leg shaking movement. Episode lasting about a few minutes as per brother. Subsequent foaming in the mouth noted. Noisy respiration noted by brother. No tongue biting, urinary incontinence as per brother. Patient brother unaware of suicidal intent. EMS called by brother for decreased responsiveness. Upon arrival at the ER, patient intubated for decreased responsiveness. Given Zosyn in the ER for possible aspiration pneumonia. Medical History as above Surgical History : Hernia repair, knee surgery, tonsillectomy Family History : Diabetes, heart disease, lung cancer Personal/Social history : Past tobacco abuse, occasional EtOH intake, disabled, living with mother since anoxic brain injury 2005 Allergies Allergy/AdvReac Type Severity Reaction Status Date / Time No Known Allergies Allergy Unknown Verified 01/17/20 22:34 Home Medications Home Medications Medication Instructions Recorded Confirmed Type Q-Pap 650 mg PO UD PRN 01/17/20 History aripiprazole 15 mg PO HS 01/17/20 01/17/20 History fluvoxamine 100 mg PO HS 01/17/20 01/17/20 History ketoconazole 1 applic TOPICAL UD 01/17/20 01/17/20 History lithium carbonate 300 mg PO QAM 01/17/20 01/17/20 History lithium carbonate 600 mg PO HS 01/17/20 01/17/20 History venlafaxine 150 mg PO QAM 01/17/20 01/17/20 History Past Med/Surg History Medical History Bipolar disorder History of repeated overdose Social History Preferred Language: Lao Communication Ability: unknown pt Current Living Situation: Family Other Information That Helps Us Care for You: No Smoking Status: Unknown if ever smoked Review of Systems Review of Systems: Could not be reliably obtained Physical Exam Physical Exam: GENERAL: Sedated, intubated SKIN: Normal color, warm HEENT: [place] palpebral conjunctivae, no ptosis, dry buccal mucosa NECK : Supple, no tenderness CHEST : Scattered rhonchi , no tenderness HEART : RRR, no obvious murmurs ABDOMEN: Some distention, nontender EXTREMITIES : Minimal LE swelling, no LE tenderness, no other conspicuous deformities noted NEUROLOGIC : Sedated, mid dilated pupils , no facial asymmetry, gait and stance not assessed Results & Data Vital Signs (Past 12 Hours) Vital Signs Temp Pulse Resp BP Pulse Ox 01/17/20 22:40 36.6 C 77 20 108/69 98 01/17/20 22:35 75 20 99 01/17/20 22:30 74 20 102/65 98 01/17/20 22:20 79 20 103/66 99 01/17/20 22:10 82 20 108/67 99 01/17/20 22:00 86 20 108/68 98 01/17/20 21:50 90 20 115/69 96 01/17/20 21:40 90 14 116/66 96 01/17/20 21:30 94 H 16 120/69 96 01/17/20 21:20 96 H 15 117/67 96 01/17/20 21:10 100 H 16 122/69 96 01/17/20 21:01 102 H 21 126/70 96 01/17/20 20:41 102 H 21 96 01/17/20 20:40 98 H 14 123/67 95 01/17/20 20:38 99 H 16 126/70 95 01/17/20 20:15 114 H 25 H 175/86 H 86 L 01/17/20 20:05 95 Laboratory Results Laboratory Results WBC 19.45 K/uL (4.8-10.8) H 01/17/20 20:05 RBC 4.27 M/uL (4.7-6.1) L 01/17/20 20:05 Hgb 14.0 g/dL (14.0-18.0) 01/17/20 20:05 POC Hgb 15.3 g/dl (14.0-18.0) 01/17/20 20:32 Hct 43.6 % (42-52) 01/17/20 20:05 POC Hct 45 % (42-52) 01/17/20 20:32 MCV 102.1 fL (80-100) H 01/17/20 20:05 MCH 32.8 pg (25-34) 01/17/20 20:05 MCHC 32.1 g/dL (32-36) 01/17/20 20:05 RDW Std Deviation 51.5 fL (36.4-46.3) H 01/17/20 20:05 RDW Coeff of Joey 13.7 % (11.5-14.5) 01/17/20 20:05 Plt Count 277 K/uL (130-400) 01/17/20 20:05 MPV 9.4 fL (7.4-10.4) 01/17/20 20:05 Immature Gran % (Auto) 1.7 % 01/17/20 20:05 Neut % (Auto) 71.8 % 01/17/20 20:05 Lymph % (Auto) 15.2 % 01/17/20 20:05 [place] % (Auto) 6.2 % 01/17/20 20:05 Eos % (Auto) 4.4 % 01/17/20 20:05 Baso % (Auto) 0.7 % 01/17/20 20:05 Immature Gran # (Auto) 0.34 K/uL (0.00-0.02) H 01/17/20 20:05 Neut # (Auto) 13.98 K/uL (1.4-6.5) H 01/17/20 20:05 Lymph # (Auto) 2.95 K/uL (1.2-3.4) 01/17/20 20:05 [place] # (Auto) 1.20 K/uL (0.11-0.59) H 01/17/20 20:05 Eos # (Auto) 0.85 K/uL (0-0.5) H 01/17/20 20:05 Baso # (Auto) 0.13 K/uL (0-0.2) 01/17/20 20:05 PT 10.5 Seconds (9.0-12.0) 01/17/20 20:05 INR 1.0 (0.9-1.1) 01/17/20 20:05 APTT 25.7 Seconds (21.0-31.0) 01/17/20 20:05 PTT Ratio 0.9 01/17/20 20:05 VBG pH 7.07 (7.36-7.41) L 01/17/20:11 VBG pCO2 79 mmHg (38-50) H 01/17/20 21:11 VBG pO2 73 mmHg 01/17/20 21:11 VBG HCO3 23 mmol/L 01/17/20 21:11 VBG O2 Saturation 91.3 % 01/17/20 21:11 VBG Base Excess -8.5 mEq/L 01/17/20 21:11 Barometric Pressure 743.6 mm/Hg 01/17/20 21:11 POC Sodium 139 mmol/L (135-144) 01/17/20 20: Sodium 139 mmol/L (136-145) 01/17/20 20:05 POC Potassium 3.4 mmol/L (3.3-5.0) 01/17/20 20:32 Potassium 3.3 mmol/L (3.5-5.1) L 01/17/20 20:05 POC Chloride 105 mmol/L (101-112) 01/17/20 20: Chloride 105 mmol/L (98-107) 01/17/20 20:05 Carbon Dioxide 22 mmol/L (21-32) 01/17/20 20:05 POC Total CO2 24 mEq/l (24-31) 01/17/20 20:32 Anion Gap 12.0 (3-11) H 01/17/20 20:05 POC Anion Gap 14.0 mmol/L (16-25) L 01/17/20 20:32 POC BUN 9 mg/dl (7-18) 01/17/20 20:32 BUN 10 mg/dl (7-18) 01/17/20 20:05 Creatinine 1.17 mg/dl (0.6-1.4) 01/17/20 20:05 POC Creatinine 0.8 mg/dl (0.6-1.3) 01/17/20 20:32 Est Cr Clr Drug Dosing 71.5 ml/min 01/17/20 20:05 Est GFR ( Amer) 78.1 01/17/20 20:05 Est GFR (Non-Af Amer) 67.4 01/17/20 20:05 BUN/Creatinine Ratio 8.3 (10-20) L 01/17/20 20:05 Glucose 248 mg/dl (70-99) H 01/17/20 20:05 POC Glucose 168 mg/dl (70-99) H 01/17/20 21:46 POC Glucose (other) 252 mg/dl (70-99) H 01/17/20 20:32 Lactate 2.9 mmol/L (0.4-2.0) H* 01/17/20 21:11 Calcium 8.8 mg/dl (8.5-10.1) 01/17/20 20:05 POC Ioniz Calcium Derek 1.28 mmol/l (1.12-1.32) 01/17/20 20:32 Phosphorus 5.4 mg/dl (2.5-4.9) H 01/17/20 20:05 Magnesium 2.1 mg/dl (1.8-2.4) 01/17/20 20:05 Total Bilirubin 0.2 mg/dl (0.2-1) 01/17/20 20:05 AST 26 U/L (15-37) 01/17/20 20:05 ALT 61 U/L (12-78) 01/17/20 20:05 Alkaline Phosphatase 110 U/L (45-117) 01/17/20 20:05 Total Creatine Kinase 162 U/L (39-308) 01/17/20 20:05 Troponin I < 0.015 ng/ml (0-0.045) 01/17/20 20:05 Total Protein 8.0 gm/dl (6.4-8.2) 01/17/20 20:05 Albumin 3.7 gm/dl (3.4-5.0) 01/17/20 20:05 Globulin 4.3 gm/dl (2.5-4.0) H 01/17/20 20:05 Albumin/Globulin Ratio 0.9 (0.9-2) 01/17/20 20:05 TSH 7.670 uIu/ml (0.300-4.500) H 01/17/20 20:05 Free T4 0.74 ng/dl (0.8-1.6) L 01/17/20 20:05 Urine Color Yellow 01/17/20 21:05 Urine Appearance Slightly Cloudy (Clear) 01/17/20 21:05 Urine pH 6.0 (4.5-7.5) 01/17/20 21:05 Ur Specific [place] 1.025 (1.000-1.030) 01/17/20 21:05 Urine Protein 2+ (Negative) H 01/17/20 21:05 Urine Glucose (UA) 1+ (Negative) H 01/17/20 21:05 Urine Ketones Negative (Negative) 01/17/20 21:05 Urine Blood 1+ (Negative) H 01/17/20 21:05 Urine Nitrite Negative (Negative) 01/17/20 21:05 Urine Bilirubin Negative (Negative) 01/17/20 21:05 Urine Urobilinogen Negative (Negative) 01/17/20 21:05 Ur Leukocyte Esterase Negative (Negative) 01/17/20 21:05 Urine RBC 5-10 /hpf (0-4) H 01/17/20 21:05 Urine WBC 0-5 /hpf (0-5) 01/17/20 21:05 Ur Epithelial Cells 0-5 /lpf (0-5) 01/17/20 21:05 Amorphous Sediment Present (None Prsent) A 01/17/20 21:05 Urine Bacteria Negative (Negative) 01/17/20 21:05 Urine Sperm Present (None Prsent) A 01/17/20 21:05 Salicylates < 1.7 mg/dl (2.8-20) L 01/17/20 20:05 Urine Opiates Screen Neg (Neg) 01/17/20 21:05 Ur Methadone, Qual Neg (Neg) 01/17/20 21:05 Acetaminophen < 2 ug/ml (10-30) L 01/17/20 20:05 Urine Barbiturates Neg (Neg) 01/17/20 21:05 Valproic Acid < 3 mcg/ml (50-100) L 01/17/20 20:05 Ur Phencyclidine (PCP) Neg (Neg) 01/17/20 21:05 U Amphetamin/Meth Scrn Neg (Neg) 01/17/20 21:05 MDMA (Ecstasy) Screen Neg (Neg) 01/17/20 21:05 U Benzodiazepines Scrn Neg (Neg) 01/17/20 21:05 [place] 0.4 mmol/L (0.6-1.2) L 01/17/20 20:05 Ur Cocaine Metabolite Neg (Neg) 01/17/20 21:05 U Marijuana (THC) Screen Pos (Neg) H 01/17/20 21:05 Ethyl Alcohol mg/dL < 3.0 mg/dl (0-3) 01/17/20 21:[address] head: No acute intracranial findings CT angios head: Unremarkable CT angiography of the brain CT angios neck: No evidence of hemodynamically significant carotid or vertebral artery stenosis. No evidence of dissection. Chest x-ray: 1. Endotracheal tube 6 cm above the irene 2. Nasogastric tube within the stomach 3. Scattered interstitial opacities likely atelectatic EKG as per my interpretation: Rate 115, sinus tachycardia, normal axis, incomplete right bundle branch block, no ischemia
[2020-01-17 23:07] LABS: iSTAT Arterial Blood Gas HCO3 24 meg/L (19-24); iSTAT Arterial Blood Gas pCO2 54 mmHg (35-46); iSTAT Arterial Blood Gas pH 7.25 (7.35-7.45); iSTAT Arterial Blood Gas pO2 74 mmHg (80-95); iSTAT Carbon Dioxide 25 mmol/L (24-31); iSTAT Hematocrit 35 % (42-52); iSTAT Hemoglobin 11.9 g/dl (14.0-18.0); iSTAT Potassium 4.3 mmol/L (3.3-5.0); iSTAT Sodium 139 mmol/L (135-144)
[2020-01-17] MEDS ORDERED: INSULIN GLARGINE SOLOSTAR 100 UNITS/ML 3 ML PEN SC STA (23:15)
[2020-01-17] MEDS ORDERED: GLUCOSE 10 TABS/TUBE PO PRN (23:15)
[2020-01-17] MEDS ORDERED: DEXTROSE 50% 50 ML SYRINGE IV PRN (23:15)
[2020-01-17] MEDS ORDERED: GLUCAGON FOR INJ 1 MG VIAL SQ PRN (23:15)
[2020-01-17] MEDS ORDERED: CARBOHYDRATES FOR HYPOGLYCEMIA PO PRN (23:15)
[2020-01-17] MEDS ORDERED: GLUCOSE 40% GEL 15 GM TUBE PO PRN (23:15)
[2020-01-17] MEDS ORDERED: INSULIN ASPART 100 UNITS/ML 3 ML PEN SC STA (23:23)
[2020-01-17] MEDS: LACTATED RINGER'S 1,000 ML IV SCH (23:52)
[2020-01-18 01:34] LABS: CSF Count Tube # 3
[2020-01-18 01:35] LABS: Appearance CSF Clear; CSF Xanthrochromic No xanthochromia; Color CSF Colorless; Red Blood Cell CSF (A) 113 /uL (0-); White Blood Cell CSF (A) 0 /uL (0-5)
[2020-01-18] MEDS ORDERED: LORazepam 2 MG/4 ML VIAL ONE (01:36)
[2020-01-18 01:45] LABS: Total Protein CSF 54.8 mg/dl (15-45)
[2020-01-18] MEDS ORDERED: LORazepam 1 MG/2 ML VIAL IV PRN (01:49)
[2020-01-18] MEDS ORDERED: ACETAMINOPHEN 1,000 MG/100 ML VIAL IV PRN (01:49)
[2020-01-18] MEDS ORDERED: ICU PROTOCOL FOR HYPERGLYCEMIA PRN (01:49)
[2020-01-18] MEDS ORDERED: PROMETHAZINE HCL 12.5 MG in SODIUM CHLORIDE 0.9% 50 ML IV PRN (01:49)
[2020-01-18] MEDS ORDERED: INFLUENZA VIRUS QUAD VACCINE 0.5 ML SYR IM ONE (02:05)
[2020-01-18] MEDS ORDERED: INFLUENZA ADMINISTRATION CHARGE ONE (02:05)
[2020-01-18] MEDS: POTASSIUM CHLORIDE / WTR 10 MEQ/100 ML PLCT IV SCH ×2 (02:05→03:07)
[2020-01-18] MEDS ORDERED: PROPOFOL BOLUS FROM BAG IV PRN (02:18)
[2020-01-18] MEDS ORDERED: STAT IV Infusion **Titration per Protocol STA (02:18)
--- NOTE | 2020-01-18 02:25 | Critical Care Consultation ---
Date of Consultation January 18, 2020 Assessment & Plan (1) Altered mental status: Reason Critically Ill: 59-year-old male with witnessed seizure-like activity, GCS of 7 and intubated in the ED Neuro - Altered mental status/seizure-like activity patient with witnessed seizure like activity, suspected postical state with GCS 7 and intubated - recieved IV ativan and now sedated with propofol, started on keppra - myoclonus in lower extremities and ocular clonus; high suspicion for SSRI OD/ seratonin syndrome considering history of OD with seroquel and presrciption SSRI - CT hed and CTA head and neck negative - LP mildly elevated protein, cannot ruleout viral meningitis at this time, CSF biofire pending, started on emperic acyclovir - BUN, NH4, CO2 WNL - MRI and EEG pending - Neurology consulted, f/u recs - holding psych meds for now - frequent neuro exams Cardiac - Currently hemodynamically stable without pressors and normal sinus rhythm troponin negative continue to monitor on telemetry Respiratory - Ventilator Management- patient intubated for airway protection for AMS - ACVC 500/ 18/ 5/40 percent - trend ABGs - suspect aspiration PNA on CXR, started zosyn - f/u AM CXR - continuous pulse ox - likely extubation when neuro status improves GI - N.p.o. RENAL/LYTES - Creatinine stable Lactic acidosispatient presents with mild lactic acidosis, now trending down, likely secondary to seizure and expect to resolve -Continue IV fluid resuscitation -Trend - Foleystrict I's and O's ENDO - No history of thyroid disease or diabetes ICU hyperglycemic protocol HEME - H&H stable, monitor routine CBCs ID - Continue Zosyn for suspected aspiration pneumonia on chest x-ray [place] negative, lactate trending down BC pending LP culture and viral panel pending continue emperic acyclovir LINES/IV ACCESS - Peripheral IVs DVT PROPHYLAXIS - SCDs, heparin I have personally spent 50 minutes of critical care time in the direct management of this patient. This is a life/limb threatening event. This includes time spent evaluating patient, direct bedside care, chart review, placing orders, interpretation of diagnostic studies, discussion with consultants, patient, and family members, as well as other required patient management activities. This time is exclusive of all separately billable procedures, and teaching time and separate from and in addition to any other critical care service time. Thank you for allowing us to participate in the care of this patient. Please refer to my attending physician's documentation for any further recommendations. (2) Aspiration pneumonia: (3) Obtundation: (4) Seizures: (5) Lactic acidosis: (6) Bipolar disorder: (7) History of repeated overdose: (8) Seizure-like activity: History of Present Illness Attending Physician: Chris Henry MD History of Present Illness Mr. franco is a 59-year-old male with past medical history of blindness, bipolar disorder, narcissistic personality disorder, with multiple prior episodes of overdose with a admission in 2005 where he overdosed on Seroquel and sustained an anoxic brain injury. The patient was with his brother today who is his current caregiver as his mother has been recently hospitalized, when the patient became unresponsive and was foaming at the mouth. EMS noted that the patient did have fasciculations of his left lower leg and he received 2 mg of Ativan. On arrival to the ED the patient had a GCS of 7 and was unresponsive to painful stimuli and was emergently intubated. Patient displayed mild lactic acidosis and leukocytosis but was afebrile and procalcitonin unremarkable. Chest x-ray suspicious of aspiration and started on Zosyn. CT and CTA of the head neck were unremarkable. LP performed in the ED with mild protein elevation but inconsistent with bacterial meningitis, patient empirically started on acyclovir. On arrival to the ICU the patient is noted to have bilateral myoclonus in the lower extremities, ocular clonus, hyperreflexia, and continues to have fasciculations of his left lower extremity. He did localize to painful stimuli. Currently patient is sedated and intubated, hemodynamically stable without need for pressors. He remains afebrile. MRI and EEG pending. Patient to remain in ICU for further management at this time. Allergies Allergy/AdvReac Type Severity Reaction Status Date / Time No Known Allergies Allergy Unknown Verified 01/17/20 22:34 Home Medications Home Medications Medication Instructions Recorded Confirmed Type Q-Pap 650 mg PO UD PRN 01/17/20 History aripiprazole 15 mg PO HS 01/17/20 01/17/20 History fluvoxamine 100 mg PO HS 01/17/20 01/17/20 History ketoconazole 1 applic TOPICAL UD 01/17/20 01/17/20 History lithium carbonate 300 mg PO QAM 01/17/20 01/17/20 History lithium carbonate 600 mg PO HS 01/17/20 01/17/20 History venlafaxine 150 mg PO QAM 01/17/20 01/17/20 History Patient History Medical History Bipolar disorder History of repeated overdose Social History Preferred Language: Persian Communication Ability: unknown pt Current Living Situation: Family Other Information That Helps Us Care for You: No Smoking Status: Unknown if ever smoked Review of Systems Review of Systems: All systems reviewed & are unremarkable except as noted in HPI & below Physical Exam Constitutional: Intubated and sedated Eyes: Pupils dilated, reactive, no nystagmus, ocular clonus present ENMT: external ear and nose normal, oropharynx normal Neck: trachea midline, no thyromegaly Respiratory: ETT 25 the lips, symmetrical chest wall movement, bilateral breath sounds auscultated and rhonchi auscultated in all lobes bilaterally, no wheezes, no crackles Cardiovascular: Rate/Rhythm: regular rate and regular rhythm Heart Sounds: normal S1 and normal S2 Vessels: no JVD Extremities: normal capillary refill; no edema Gastrointestinal (Abdomen): Hyperactive bowel sounds, abdomen soft, nondistended Skin: no rashes, warm and dry Neurologic: Cough gag corneals intact, patient localizes to noxious stimuli bilaterally in upper extremities, fasciculations in left lower extremity, myoclonus in lower extremities bilaterally, hyperreflexia bilaterally in lower extremities Psychiatric: Unable to assess secondary to sedation Genitourinary: Indwelling Aburto catheter Results & Data ([facility]) Vital Signs (Past 12 Hours) Vital Signs Temp Pulse Pulse Resp BP BP Pulse Ox 01/18/20 02:15 67 100 01/18/20 02:00 71 98 01/18/20 01:51 37.1 C 68 16 120/73 98 01/18/20 01:49 72 120/73 100 01/18/20 01:45 77 01/18/20 01:36 75 120/76 01/18/20 01:34 82 01/18/20 01:10 63 24 98/54 L 100 01/18/20 01:00 65 18 109/73 99 01/18/20 00:50 66 106/64 97 01/18/20 00:40 71 21 108/65 94 01/18/20 00:30 64 24 109/71 96 01/18/20 00:20 66 24 103/66 100 01/18/20 00:10 36.5 C 65 16 108/69 100 01/18/20 00:00 66 27 H 98 01/17/20 23:50 66 28 H 110/71 99 01/17/20 23:40 66 24 111/70 95 01/17/20 23:30 67 24 109/71 97 01/17/20 23:20 67 24 105/70 98 01/17/20 23:10 67 21 107/67 01/17/20 23:00 73 24 100/55 L 98 01/17/20 22:52 70 20 109/68 95 01/17/20 22:50 72 22 94/59 L 95 01/17/20 22:40 36.6 C 77 20 108/69 98 01/17/20 22:35 75 20 99 01/17/20 22:30 74 20 102/65 98 01/17/20 22:20 79 20 103/66 99 01/17/20 22:10 82 20 108/67 99 01/17/20 22:00 86 20 108/68 98 01/17/20 21:50 90 20 115/69 96 01/17/20 21:40 90 14 116/66 96 01/17/20 21:30 94 H 16 120/69 96 01/17/20 21:20 96 H 15 117/67 96 01/17/20 21:10 100 H 16 122/69 96 01/17/20 21:01 102 H 21 126/70 96 01/17/20 20:41 102 H 21 96 01/17/20 20:40 98 H 14 123/67 95 01/17/20 20:38 99 H 16 126/70 95 01/17/20 20:15 114 H 25 H 175/86 H 86 L 01/17/20 20:05 95 Coding Level of Care Code Critical Care 1st 30-74 mins Diagnoses Altered mental status R41.82 Aspiration pneumonia J69.0 Obtundation R40.1 Seizures R56.9 Lactic acidosis E87.2 Bipolar disorder F31.9 History of repeated overdose Z91.89 Seizure-like activity R56.9
[2020-01-18] MEDS ORDERED: ACYCLOVIR SOD 400 MG in DEXTROSE 5% 250 ML IV SCH (02:30)
[2020-01-18] MEDS ORDERED: propofoL 1,000 MG/100 ML VIAL IV SCH (02:30)
[2020-01-18] MEDS ORDERED: ACYCLOVIR SOD 750 MG in DEXTROSE 5% 250 ML IV SCH (03:00)
[2020-01-18 03:08] LABS: Cryptococcus neoformans/ga PCR Not Detected (NotDetected); Cytomegalovirus PCR Not Detected (NotDetected); Enterovirus PCR Not Detected (NotDetected); Escherichia coli K1 PCR Not Detected (NotDetected); Haemophilius influenzae PCR Not Detected (NotDetected); Herpes Simplex Virus 1 PCR Not Detected (NotDetected); Herpes Simplex Virus 2 PCR Not Detected (NotDetected); Human Herpes Virus 6 PCR Not Detected (NotDetected); Human Parechovirus PCR Not Detected (NotDetected); Listeria monocytogenes PCR Not Detected (NotDetected); Neisseria meningitidis PCR Not Detected (NotDetected); Streptococcus agalactiae PCR Not Detected (NotDetected); Streptococcus pneumoniae PCR Not Detected (NotDetected); Varicella Zoster Virus PCR Not Detected (NotDetected)
[2020-01-18 05:08] LABS: Basophils # (auto) 0.01 K/uL (0-0.2); Basophils % (auto) 0.1 %; Hematocrit (blood only) 38.5 % (42-52); Hemoglobin 12.7 g/dL (14.0-18.0); Immature Granulocytes # (auto) 0.05 K/uL (0.00-0.02); Immature Granulocytes % (auto) 0.4 %; Lymphocytes % (auto) 3.7 %; Mean Corpuscular Hemoglobin 32.6 pg (25-34); Mean Corpuscular Volume 98.7 fL (80-100); Mean Platelet Volume 9.1 fL (7.4-10.4); Monocytes # (auto) 0.25 K/uL (0.11-0.59); Monocytes % (auto) 1.9 %; Neutrophils # (auto) 12.66 K/uL (1.4-6.5); Neutrophils % (auto) 93.9 %; Platelet Count 191 K/uL (130-400); RDW Coefficient of Variation 13.6 % (11.5-14.5); RDW Standard Deviation 48.7 fL (36.4-46.3); White Blood Count 13.47 K/uL (4.8-10.8)
[2020-01-18 05:26] LABS: Calcium 8.4 mg/dl (8.5-10.1); Creatinine Clr Calc Pharmacy 84.5 ml/min; Est GFR (African American) 95.5; Est GFR (Non-African American) 82.4; Magnesium 1.9 mg/dl (1.8-2.4); Potassium 4.4 mmol/L (3.5-5.1)
[2020-01-18] MEDS: INSULIN ASPART 100 UNITS/ML 3 ML PEN SC SCH ×3 (05:36→18:16)
[2020-01-18 05:55] LABS: iSTAT Art Bld Gas pCO2 Correct 24 mmHg (35-46); iSTAT Art Bld Gas pH Corrected 7.516 (7.35-7.45); iSTAT Arterial Blood Gas HCO3 20 meg/L (19-24); iSTAT Arterial Blood Gas pCO2 24 mmHg (35-46); iSTAT Arterial Blood Gas pH 7.52 (7.35-7.45); iSTAT Arterial Blood Gas pO2 72 mmHg (80-95); iSTAT Arterial Blood Gas pO2 C 72; iSTAT Carbon Dioxide 20 mmol/L (24-31); iSTAT FiO2 30 %; iSTAT Hematocrit 35 % (42-52); iSTAT Hemoglobin 11.9 g/dl (14.0-18.0); iSTAT Site L Brachial; iSTAT Sodium 138 mmol/L (135-144)
[2020-01-18 06:26] LABS: Estimated Average Glucose 88 mg/dl; Hemoglobin A1C 4.7 % (4.5-5.6)
--- NOTE | 2020-01-18 07:34 | Magnetic Resonance Report ---
MR brain wo con HISTORY: Mental status change AMS TECHNIQUE: Multiplanar multisequence MRI of the brain was performed without the use of contrast. COMPARISON STUDY: None. FINDINGS: There are no areas of restricted diffusion to suggest acute infarction. The midline structu res are intact. The paranasal sinuses are clear. The mastoid air cells are clear. The ventricles and sulci are within normal limits for age. There is no mass, hematoma, midline shift. The major vascular flow-voids at the skull base are well maintained. Age-related atrophy and chronic small vessel irving e is noted IMPRESSION: No acute intracranial abnormality. Age-related atrophy and chronic small vessel change. ACT 112: Negative or not required by law. The above report was generated using voice recognition software. It may contain grammatical, syntax or spelling errors. Electronically signed by: Edu Shields M.D. 01/18/2020 7:33 AM
[2020-01-18 08:51] LABS: Phosphorus 1.3 mg/dl (2.5-4.9)
[2020-01-18] MEDS: levETIRAcetam 500 MG in 0.9 % SODIUM CHLORIDE 100 ML IV SCH ×2 (08:59→21:22)
[2020-01-18] MEDS: ENOXAPARIN INJ 40 MG/0.4 ML SYR SQ SCH (09:00)
[2020-01-18] MEDS ORDERED: HEPARIN SOD 5,000 UNIT/0.5 ML VIAL SQ SCH (09:00)
[2020-01-18] MEDS: FAMOTIDINE 20 MG in SYRINGE 3 ML IV SCH (09:00)
[2020-01-18] MEDS ORDERED: PIPERACILLIN/TAZOBACTAM 3.375 GM in DEXTROSE 5% 100 ML IV SCH (09:00)
[2020-01-18] MEDS ORDERED: POTASSIUM PHOS 3 MMOL/1 ML INFUSION IV STA (10:49)
[2020-01-18] MEDS ORDERED: THIAMINE HCL 100 MG in SYRINGE 9 ML IV STA (10:51)
[2020-01-18 11:14] LABS: Reticulocyte % 1.4 % (0.5-2.0); Reticulocytes # 0.05 10^6/uL (0.02-0.10)
[2020-01-18] MEDS ORDERED: POTASSIUM PHOSPHATE 18 MMOL in SODIUM CHLORIDE 0.9% 500 ML IV ONE (11:15)
[2020-01-18] MEDS ORDERED: THIAMINE HCL 100 MG in SYRINGE 9 ML IV ONE (11:30)
[2020-01-18] MEDS ORDERED: MULTI-VITAMIN INFUSION 10 ML, THIAMINE HCL 100 MG, FOLIC ACID 1 MG in SODIUM CHLORIDE 0... IV SCH (11:30)
--- NOTE | 2020-01-18 14:12 | Neurology Consultation ---
Date of Consultation January 18, 2020 Assessment & Plan (1) Seizure-like activity: 1. LP- pending labs 2. increased Lactate 2.1 3. lithium level sub therapeutic 4. family for baseline 5. MRI- no acute findings 6. CTA head and neck no significant narrowing or occlusion 7. EEG- no focal seizure seen on EEG 8. psychiatry -for behavioral issues and direction of care 9. start antiepileptic medication would not use Keppra, may be better choose Tegretol or Depakote or Lamictal (but this takes to long to load). Once psychiatry see him it would be helpful if they would comment on what they would prefer. (2) Acute hypoxemic respiratory failure: (3) Bipolar disorder: (4) Lactic acidosis: (5) Aspiration pneumonia: Supervising Physician Co-Signing Physician Notes I have seen and discussed above patient with Dr Mitch Montemayor, neurology I have examined this man discussed his case with Jennifer Roblero PA-C, reviewed his history and his labs and agree that he likely had a seizure or a series of seizures and is now emerging from this with a post ictal confusional state. He is quite primitive as very little significant language function but is beginning to speak in short phrases and will answer questions is a yes or no but is not oriented to place or least does not profess to recognize the name [facility] realize that he is in the hospital. He has very slow deliberate movements keeps his neck flexed and has extremely dysarthric verbal output. There are no clear-cut focal neurologic deficits other than a generalized mild bradykinesia and rigidity which I suspect to some degree is his baseline There is a history of anoxia, suicide attempts and is currently on multiple medications that appear to be designed to treat depression and perhaps elements of bipolarity but we do not have access to his psychiatric records While some of his medications might lower the seizure threshold I think he has enough underlying structural disease to explain the emergence of a seizure disorder and suspect he is going to need some long-term anticonvulsants. EEG shows generalized slowing without any focality and without any clear-cut potentially epileptogenic activity but the absence of this does not mean that he does not have a seizure While Keppra can be easily loaded it may not be an ideal agent in this setting with an underlying affective disorder and probably some heightened irritability I could easily support agents such as Depakote Tegretol, Trileptal or even Lamictal and would appreciate if psychiatry would at least look over the case and make recommendations about which anticonvulsant might be the best here and which one might actually help control some of his underlying behavioral issues The downside of Lamictal in this setting is its need to be loaded very slowly due to concern for skin reactions and since this man has had for apparently a series or potential series of seizures I think using agents which can be rapidly loaded and there levels maintained would be the best We will drop back tomorrow and see how things are going and whether the patient has changed significantly and whether psychiatry has some more information regarding his prior treatments on an outpatient basis Mitch Montemayor MD History of Present Illness Reason for Consultation: new onset seizure Requesting Physician: Kevin Navarro MD Attending Physician: Kevin Navarro MD History of Present Illness Kishor is a 59 year old male with PMH- bipolar disorder, narcissistic personality disorder, multiple prior episodes of overdoses with last admission in 2005 for overdose of Seroquel and prior overdoses of lithium and Tegretol who presents emergency department after becoming unresponsive when he was in the car with his brother, foaming at the mouth with no overt seizure-like activity reported but continued to be obtunded upon arrival by EMS. There were some fasciculations of his left lower leg for which she was given 2 mg of Ativan with improvement. HE was obtunded and unresponsive to painful stimulus in the ED. There is no response to corneal stimulus though there is report of a history of being blind. He was intubated for airway protection after okay with intubation from brother.There was a LP done also with ok from brother. He is currently sitting up in bed. No family in room he does follow some commands but non verbal. unable to obtain ROS due to patient unresponsiveness. Allergies Allergy/AdvReac Type Severity Reaction Status Date / Time No Known Allergies Allergy Unknown Verified 01/17/20 22:34 Home Medications Home Medications Medication Instructions Recorded Confirmed Type Q-Pap 650 mg PO UD PRN 01/17/20 History aripiprazole 15 mg PO HS 01/17/20 01/17/20 History fluvoxamine 100 mg PO HS 01/17/20 01/17/20 History ketoconazole 1 applic TOPICAL UD 01/17/20 01/17/20 History lithium carbonate 300 mg PO QAM 01/17/20 01/17/20 History lithium carbonate 600 mg PO HS 01/17/20 01/17/20 History venlafaxine 150 mg PO QAM 01/17/20 01/17/20 History Patient History Medical History Bipolar disorder History of repeated overdose Social History Preferred Language: Danish Communication Ability: unknown pt Current Living Situation: Family Other Information That Helps Us Care for You: No Smoking Status: Unknown if ever smoked Physical Exam Physical Exam: Physical Exam: Constitutional: appearance no apparent distress, rocking in bed after awake with voice command Ears, Nose, Mouth and Throat: mucous membranes moist, no injection and skin normal, eyes normal Cardiovascular: normal S-1 and S-2 and regular rate and rhythm Respiratory: course breath sounds Musculoskeletal: no peripheral edema and good distal pulses Skin: no stigmata of neurocutaneous disease noted and normal and intact Eyes: extraocular muscles intact (EOMI) and pupils equal, round and reactive to light (PERRL) NEUROLOGIC EXAMINATION: Mental status: Alert with voice command but non verbal Oriented to person Speech currently non verbal Cranial Nerves facial symmetry Coordination: unable to assess Gait/Stance: Posture sitting up and rocking in bed Motor: moves UE no restrictions Strength: squeezes bilaterally with hand but need que to let go, hand product support technician does on push pull with command Results & Data Vital Signs (Past 12 Hours) Vital Signs Temp Pulse Pulse Resp BP BP Pulse Ox 01/18/20 12:55 88 102/57 L 95 01/18/20 11:55 37.3 C 98 H 113/65 93 01/18/20 10:55 95 H 118/61 96 01/18/20 09:56 106 H 117/55 L 95 01/18/20 08:55 120 H 134/62 95 01/18/20 08:28 10 L 01/18/20 08:00 100 H 20 95 01/18/20 07:54 38 C H 81 118/60 95 01/18/20 07:30 80 01/18/20 07:24 83 120/64 97 01/18/20 06:54 81 124/61 98 01/18/20 06:02 77 24 96 01/18/20 06:00 84 20 128/61 98 01/18/20 05:00 37 C 81 24 99/58 L 98 01/18/20 03:00 67 100 01/18/20 02:49 66 112/68 100 01/18/20 02:45 64 100 01/18/20 02:30 69 100 01/18/20 02:25 67 16 100 01/18/20 02:15 67 100 01/18/20 02:00 71 98 Laboratory Results Abnormal lab results 01/17/20 01/17/20 01/17/20 Range/Units 20:05 20:05 20:05 WBC 19.45 H (4.8-10.8) K/uL RBC 4.27 L (4.7-6.1) M/uL Hgb (14.0-18.0) g/dL POC Hgb (14.0-18.0) g/dl Hct (42-52) % POC Hct (42-52) % MCV 102.1 H (80-100) fL RDW Std Deviation 51.5 H (36.4-46.3) fL Immature Gran # (Auto) 0.34 H (0.00-0.02) K/uL Neut # (Auto) 13.98 H (1.4-6.5) K/uL Lymph # (Auto) (1.2-3.4) K/uL Pinal # (Auto) 1.20 H (0.11-0.59) K/uL Eos # (Auto) 0.85 H (0-0.5) K/uL POC pH (7.35-7.45) POC pCO2 (35-46) mmHg POC pO2 (80-95) mmHg POC Total CO2 (24-31) mmol/L ABG pH (Temp Correct) (7.35-7.45) ABG pCO2 (Temp Corrct (35-46) mmHg VBG pH (7.36-7.41) VBG pCO2 (38-50) mmHg Potassium 3.3 L (3.5-5.1) mmol/L Chloride (98-107) mmol/L Anion Gap 12.0 H (3-11) POC Anion Gap (16-25) mmol/L BUN/Creatinine Ratio 8.3 L (10-20) Glucose 248 H (70-99) mg/dl POC Glucose (70-99) mg/dl POC Glucose (other) (70-99) mg/dl Lactate (0.4-2.0) mmol/L Calcium (8.5-10.1) mg/dl Phosphorus 5.4 H (2.5-4.9) mg/dl Iron (35-175) mcg/dl Ammonia (11-32) umol/L Globulin 4.3 H (2.5-4.0) gm/dl TSH 7.670 H (0.300-4.500) uIu/ml Free T4 0.74 L (0.8-1.6) ng/dl Urine Protein (Negative) Urine Glucose (UA) (Negative) Urine Blood (Negative) Urine RBC (0-4) /hpf Amorphous Sediment (None Prsent) Urine Sperm (None Prsent) CSF Glucose (40-70) mg/dl CSF Total Protein (15-45) mg/dl Salicylates < 1.7 L (2.8-20) mg/dl Acetaminophen < 2 L (10-30) ug/ml Valproic Acid < 3 L (50-100) mcg/ml Carbamazepine (4-12) mcg/ml Angelica 0.4 L (0.6-1.2) mmol/L U Marijuana (THC) Screen (Neg) 01/17/20 01/17/20 01/17/20 Range/Units 20:12 20:32 21:05 WBC (4.8-10.8) K/uL RBC (4.7-6.1) M/uL Hgb (14.0-18.0) g/dL POC Hgb (14.0-18.0) g/dl Hct (42-52) % POC Hct (42-52) % MCV (80-100) fL RDW Std Deviation (36.4-46.3) fL Immature Gran # (Auto) (0.00-0.02) K/uL Neut # (Auto) (1.4-6.5) K/uL Lymph # (Auto) (1.2-3.4) K/uL Pinal # (Auto) (0.11-0.59) K/uL Eos # (Auto) (0-0.5) K/uL POC pH (7.35-7.45) POC pCO2 (35-46) mmHg POC pO2 (80-95) mmHg POC Total CO2 (24-31) mmol/L ABG pH (Temp Correct) (7.35-7.45) ABG pCO2 (Temp Corrct (35-46) mmHg VBG pH (7.36-7.41) VBG pCO2 (38-50) mmHg Potassium (3.5-5.1) mmol/L Chloride (98-107) mmol/L Anion Gap (3-11) POC Anion Gap 14.0 L (16-25) mmol/L BUN/Creatinine Ratio (10-20) Glucose (70-99) mg/dl POC Glucose 207 H (70-99) mg/dl POC Glucose (other) 252 H (70-99) mg/dl Lactate (0.4-2.0) mmol/L Calcium (8.5-10.1) mg/dl Phosphorus (2.5-4.9) mg/dl Iron (35-175) mcg/dl Ammonia (11-32) umol/L Globulin (2.5-4.0) gm/dl TSH (0.300-4.500) uIu/ml Free T4 (0.8-1.6) ng/dl Urine Protein 2+ H (Negative) Urine Glucose (UA) 1+ H (Negative) Urine Blood 1+ H (Negative) Urine RBC 5-10 H (0-4) /hpf Amorphous Sediment Present A (None Prsent) Urine Sperm Present A (None Prsent) CSF Glucose (40-70) mg/dl CSF Total Protein (15-45) mg/dl Salicylates (2.8-20) mg/dl Acetaminophen (10-30) ug/ml Valproic Acid (50-100) mcg/ml Carbamazepine (4-12) mcg/ml Angelica (0.6-1.2) mmol/L U Marijuana (THC) Screen (Neg) 01/17/20 01/17/20 01/17/20 Range/Units 21:05 21:11 21:11 WBC (4.8-10.8) K/uL RBC (4.7-6.1) M/uL Hgb (14.0-18.0) g/dL POC Hgb (14.0-18.0) g/dl Hct (42-52) % POC Hct (42-52) % MCV (80-100) fL RDW Std Deviation (36.4-46.3) fL Immature Gran # (Auto) (0.00-0.02) K/uL Neut # (Auto) (1.4-6.5) K/uL Lymph # (Auto) (1.2-3.4) K/uL Pinal # (Auto) (0.11-0.59) K/uL Eos # (Auto) (0-0.5) K/uL POC pH (7.35-7.45) POC pCO2 (35-46) mmHg POC pO2 (80-95) mmHg POC Total CO2 (24-31) mmol/L ABG pH (Temp Correct) (7.35-7.45) ABG pCO2 (Temp Corrct (35-46) mmHg VBG pH 7.07 L (7.36-7.41) VBG pCO2 79 H (38-50) mmHg Potassium (3.5-5.1) mmol/L Chloride (98-107) mmol/L Anion Gap (3-11) POC Anion Gap (16-25) mmol/L BUN/Creatinine Ratio (10-20) Glucose (70-99) mg/dl POC Glucose (70-99) mg/dl POC Glucose (other) (70-99) mg/dl Lactate 2.9 H* (0.4-2.0) mmol/L Calcium (8.5-10.1) mg/dl Phosphorus (2.5-4.9) mg/dl Iron (35-175) mcg/dl Ammonia (11-32) umol/L Globulin (2.5-4.0) gm/dl TSH (0.300-4.500) uIu/ml Free T4 (0.8-1.6) ng/dl Urine Protein (Negative) Urine Glucose (UA) (Negative) Urine Blood (Negative) Urine RBC (0-4) /hpf Amorphous Sediment (None Prsent) Urine Sperm (None Prsent) CSF Glucose (40-70) mg/dl CSF Total Protein (15-45) mg/dl Salicylates (2.8-20) mg/dl Acetaminophen (10-30) ug/ml Valproic Acid (50-100) mcg/ml Carbamazepine (4-12) mcg/ml Angelica (0.6-1.2) mmol/L U Marijuana (THC) Screen Pos H (Neg) 01/17/20 01/17/20 01/17/20 Range/Units 21:46 22:55 23:04 WBC (4.8-10.8) K/uL RBC (4.7-6.1) M/uL Hgb (14.0-18.0) g/dL POC Hgb 11.9 L (14.0-18.0) g/dl Hct (42-52) % POC Hct 35 L (42-52) % MCV (80-100) fL RDW Std Deviation (36.4-46.3) fL Immature Gran # (Auto) (0.00-0.02) K/uL Neut # (Auto) (1.4-6.5) K/uL Lymph # (Auto) (1.2-3.4) K/uL Pinal # (Auto) (0.11-0.59) K/uL Eos # (Auto) (0-0.5) K/uL POC pH 7.25 L (7.35-7.45) POC pCO2 54 H (35-46) mmHg POC pO2 74 L (80-95) mmHg POC Total CO2 (24-31) mmol/L ABG pH (Temp Correct) (7.35-7.45) ABG pCO2 (Temp Corrct (35-46) mmHg VBG pH (7.36-7.41) VBG pCO2 (38-50) mmHg Potassium (3.5-5.1) mmol/L Chloride (98-107) mmol/L Anion Gap (3-11) POC Anion Gap (16-25) mmol/L BUN/Creatinine Ratio (10-20) Glucose (70-99) mg/dl POC Glucose 168 H (70-99) mg/dl POC Glucose (other) (70-99) mg/dl Lactate (0.4-2.0) mmol/L Calcium (8.5-10.1) mg/dl Phosphorus (2.5-4.9) mg/dl Iron (35-175) mcg/dl Ammonia < 10.0 L (11-32) umol/L Globulin (2.5-4.0) gm/dl TSH (0.300-4.500) uIu/ml Free T4 (0.8-1.6) ng/dl Urine Protein (Negative) Urine Glucose (UA) (Negative) Urine Blood (Negative) Urine RBC (0-4) /hpf Amorphous Sediment (None Prsent) Urine Sperm (None Prsent) CSF Glucose (40-70) mg/dl CSF Total Protein (15-45) mg/dl Salicylates (2.8-20) mg/dl Acetaminophen (10-30) ug/ml Valproic Acid (50-100) mcg/ml Carbamazepine (4-12) mcg/ml Angelica (0.6-1.2) mmol/L U Marijuana (THC) Screen (Neg) 01/17/20 01/17/20 01/17/20 Range/Units 23:04 23:05 23:43 WBC (4.8-10.8) K/uL RBC (4.7-6.1) M/uL Hgb (14.0-18.0) g/dL POC Hgb (14.0-18.0) g/dl Hct (42-52) % POC Hct (42-52) % MCV (80-100) fL RDW Std Deviation (36.4-46.3) fL Immature Gran # (Auto) (0.00-0.02) K/uL Neut # (Auto) (1.4-6.5) K/uL Lymph # (Auto) (1.2-3.4) K/uL Pinal # (Auto) (0.11-0.59) K/uL Eos # (Auto) (0-0.5) K/uL POC pH (7.35-7.45) POC pCO2 (35-46) mmHg POC pO2 (80-95) mmHg POC Total CO2 (24-31) mmol/L ABG pH (Temp Correct) (7.35-7.45) ABG pCO2 (Temp Corrct (35-46) mmHg VBG pH (7.36-7.41) VBG pCO2 (38-50) mmHg Potassium (3.5-5.1) mmol/L Chloride (98-107) mmol/L Anion Gap (3-11) POC Anion Gap (16-25) mmol/L BUN/Creatinine Ratio (10-20) Glucose (70-99) mg/dl POC Glucose 156 H (70-99) mg/dl POC Glucose (other) (70-99) mg/dl Lactate 2.1 H* (0.4-2.0) mmol/L Calcium (8.5-10.1) mg/dl Phosphorus (2.5-4.9) mg/dl Iron (35-175) mcg/dl Ammonia (11-32) umol/L Globulin (2.5-4.0) gm/dl TSH (0.300-4.500) uIu/ml Free T4 (0.8-1.6) ng/dl Urine Protein (Negative) Urine Glucose (UA) (Negative) Urine Blood (Negative) Urine RBC (0-4) /hpf Amorphous Sediment (None Prsent) Urine Sperm (None Prsent) CSF Glucose (40-70) mg/dl CSF Total Protein (15-45) mg/dl Salicylates (2.8-20) mg/dl Acetaminophen (10-30) ug/ml Valproic Acid (50-100) mcg/ml Carbamazepine < 0.5 L (4-12) mcg/ml Angelica (0.6-1.2) mmol/L U Marijuana (THC) Screen (Neg) 01/18/20 01/18/20 01/18/20 Range/Units 01:00 04:57 04:57 WBC 13.47 H (4.8-10.8) K/uL RBC 3.90 L (4.7-6.1) M/uL Hgb 12.7 L (14.0-18.0) g/dL POC Hgb (14.0-18.0) g/dl Hct 38.5 L (42-52) % POC Hct (42-52) % MCV (80-100) fL RDW Std Deviation 48.7 H (36.4-46.3) fL Immature Gran # (Auto) 0.05 H (0.00-0.02) K/uL Neut # (Auto) 12.66 H (1.4-6.5) K/uL Lymph # (Auto) 0.50 L (1.2-3.4) K/uL Pinal # (Auto) (0.11-0.59) K/uL Eos # (Auto) (0-0.5) K/uL POC pH (7.35-7.45) POC pCO2 (35-46) mmHg POC pO2 (80-95) mmHg POC Total CO2 (24-31) mmol/L ABG pH (Temp Correct) (7.35-7.45) ABG pCO2 (Temp Corrct (35-46) mmHg VBG pH (7.36-7.41) VBG pCO2 (38-50) mmHg Potassium (3.5-5.1) mmol/L Chloride 109 H (98-107) mmol/L Anion Gap (3-11) POC Anion Gap (16-25) mmol/L BUN/Creatinine Ratio 8.0 L (10-20) Glucose 140 H (70-99) mg/dl POC Glucose (70-99) mg/dl POC Glucose (other) (70-99) mg/dl Lactate (0.4-2.0) mmol/L Calcium 8.4 L (8.5-10.1) mg/dl Phosphorus 1.3 L* D (2.5-4.9) mg/dl Iron (35-175) mcg/dl Ammonia (11-32) umol/L Globulin (2.5-4.0) gm/dl TSH (0.300-4.500) uIu/ml Free T4 (0.8-1.6) ng/dl Urine Protein (Negative) Urine Glucose (UA) (Negative) Urine Blood (Negative) Urine RBC (0-4) /hpf Amorphous Sediment (None Prsent) Urine Sperm (None Prsent) CSF Glucose 93 H (40-70) mg/dl CSF Total Protein 54.8 H (15-45) mg/dl Salicylates (2.8-20) mg/dl Acetaminophen (10-30) ug/ml Valproic Acid (50-100) mcg/ml Carbamazepine (4-12) mcg/ml Angelica (0.6-1.2) mmol/L U Marijuana (THC) Screen (Neg) 01/18/20 01/18/20 01/18/20 Range/Units 04:57 05:01 05:42 WBC (4.8-10.8) K/uL RBC (4.7-6.1) M/uL Hgb (14.0-18.0) g/dL POC Hgb 11.9 L (14.0-18.0) g/dl Hct (42-52) % POC Hct 35 L (42-52) % MCV (80-100) fL RDW Std Deviation (36.4-46.3) fL Immature Gran # (Auto) (0.00-0.02) K/uL Neut # (Auto) (1.4-6.5) K/uL Lymph # (Auto) (1.2-3.4) K/uL Pinal # (Auto) (0.11-0.59) K/uL Eos # (Auto) (0-0.5) K/uL POC pH 7.52 H* (7.35-7.45) POC pCO2 24 L (35-46) mmHg POC pO2 72 L (80-95) mmHg POC Total CO2 20 L (24-31) mmol/L ABG pH (Temp Correct) 7.516 H* (7.35-7.45) ABG pCO2 (Temp Corrct 24 L (35-46) mmHg VBG pH (7.36-7.41) VBG pCO2 (38-50) mmHg Potassium (3.5-5.1) mmol/L Chloride (98-107) mmol/L Anion Gap (3-11) POC Anion Gap (16-25) mmol/L BUN/Creatinine Ratio (10-20) Glucose (70-99) mg/dl POC Glucose 135 H (70-99) mg/dl POC Glucose (other) (70-99) mg/dl Lactate 3.9 H* (0.4-2.0) mmol/L Calcium (8.5-10.1) mg/dl Phosphorus (2.5-4.9) mg/dl Iron (35-175) mcg/dl Ammonia (11-32) umol/L Globulin (2.5-4.0) gm/dl TSH (0.300-4.500) uIu/ml Free T4 (0.8-1.6) ng/dl Urine Protein (Negative) Urine Glucose (UA) (Negative) Urine Blood (Negative) Urine RBC (0-4) /hpf Amorphous Sediment (None Prsent) Urine Sperm (None Prsent) CSF Glucose (40-70) mg/dl CSF Total Protein (15-45) mg/dl Salicylates (2.8-20) mg/dl Acetaminophen (10-30) ug/ml Valproic Acid (50-100) mcg/ml Carbamazepine (4-12) mcg/ml Angelica (0.6-1.2) mmol/L U Marijuana (THC) Screen (Neg) 01/18/20 01/18/20 Range/Units 11:06 11:45 WBC (4.8-10.8) K/uL RBC (4.7-6.1) M/uL Hgb (14.0-18.0) g/dL POC Hgb (14.0-18.0) g/dl Hct (42-52) % POC Hct (42-52) % MCV (80-100) fL RDW Std Deviation (36.4-46.3) fL Immature Gran # (Auto) (0.00-0.02) K/uL Neut # (Auto) (1.4-6.5) K/uL Lymph # (Auto) (1.2-3.4) K/uL Pinal # (Auto) (0.11-0.59) K/uL Eos # (Auto) (0-0.5) K/uL POC pH (7.35-7.45) POC pCO2 (35-46) mmHg POC pO2 (80-95) mmHg POC Total CO2 (24-31) mmol/L ABG pH (Temp Correct) (7.35-7.45) ABG pCO2 (Temp Corrct (35-46) mmHg VBG pH (7.36-7.41) VBG pCO2 (38-50) mmHg Potassium (3.5-5.1) mmol/L Chloride (98-107) mmol/L Anion Gap (3-11) POC Anion Gap (16-25) mmol/L BUN/Creatinine Ratio (10-20) Glucose (70-99) mg/dl POC Glucose 113 H (70-99) mg/dl POC Glucose (other) (70-99) mg/dl Lactate (0.4-2.0) mmol/L Calcium (8.5-10.1) mg/dl Phosphorus (2.5-4.9) mg/dl Iron 33 L (35-175) mcg/dl Ammonia (11-32) umol/L Globulin (2.5-4.0) gm/dl TSH (0.300-4.500) uIu/ml Free T4 (0.8-1.6) ng/dl Urine Protein (Negative) Urine Glucose (UA) (Negative) Urine Blood (Negative) Urine RBC (0-4) /hpf Amorphous Sediment (None Prsent) Urine Sperm (None Prsent) CSF Glucose (40-70) mg/dl CSF Total Protein (15-45) mg/dl Salicylates (2.8-20) mg/dl Acetaminophen (10-30) ug/ml Valproic Acid (50-100) mcg/ml Carbamazepine (4-12) mcg/ml Angelica (0.6-1.2) mmol/L U Marijuana (THC) Screen (Neg) Diagnostic Findings MRI brain-No acute intracranial abnormality. Age-related atrophy and chronic small vessel change. CT head- No acute intracranial findings CTA head-Unremarkable CT angiography of the brain. CTA neck- no evidence of hemodynamically significant carotid or vertebral artery stenosis. No evidence of dissection. CXR-. Endotracheal tube 6 cm above the irene Nasogastric tube within the stomach Scattered interstitial opacities likely atelectatic EEG - diffuse slowing
--- NOTE | 2020-01-18 16:35 | Electroencephalogram ---
EEG Procedure Note Date of Service January 18, 2020 Start / End Times Start Time: 1207 End Time: 1227 Referring Physician Kevin Teran MD History History of anoxic encephalopathy with multiple neurologic deficits now with sudden onset of seizure activity, intubation and confusional state Home Medication List Home Medications Medication Instructions Recorded Confirmed Type Q-Pap 650 mg PO UD PRN 01/17/20 History aripiprazole 15 mg PO HS 01/17/20 01/17/20 History fluvoxamine 100 mg PO HS 01/17/20 01/17/20 History ketoconazole 1 applic TOPICAL UD 01/17/20 01/17/20 History lithium carbonate 300 mg PO QAM 01/17/20 01/17/20 History lithium carbonate 600 mg PO HS 01/17/20 01/17/20 History venlafaxine 150 mg PO QAM 01/17/20 01/17/20 History Inpatient Medication List Enoxaparin Sodium (Lovenox) 40 mg SQ QAM [facility] Stop: 02/17/20 08:59 Last Admin: 01/18/20 09:00 Dose: 40 mg Documented by: [id number] Levetiracetam 500 mg/ Sodium (Chloride) 105 mls @ 440 mls/hr IV BID DOC Stop: 02/17/20 08:59 Last Infusion: 01/18/20 09:15 Dose: 0 mls/hr Documented by: [id number] Admin: 01/18/20 08:59 Dose: 440 mls/hr Documented by: [id number] Famotidine 20 mg/ Syringe 5 mls @ 2.5 mls/min IV DAILY DOC Stop: 02/17/20 08:59 Last Admin: 01/18/20 09:00 Dose: 2.5 mls/min Documented by: [id number] Propofol (Diprivan) 1,000 mg in 100 mls @ 0 mls/hr IV .Q0M DOC; Protocol Stop: 01/21/20 02:29 Last Titration: 01/18/20 08:22 Dose: 0 mcg/kg/min, 0 mls/hr Documented by: [id number] Admin: 01/18/20 07:06 Dose: 15 mcg/kg/min, 7.2 mls/hr Documented by: [id number] Cosigned by: [id number] Multivitamins 10 ml/ Thiamine HCl 100 mg/ Folic Acid 1 mg/Sodium Chloride 1,011.2 mls @ 100 mls/hr IV .Q10H7M [facility] Stop: 01/18/20 21:36 Last Admin: 01/18/20 11:29 Dose: 100 mls/hr Documented by: [id number] Potassium Phosphate 18 mmol/ (Sodium Chloride) 506 mls @ 88 mls/hr IV ONE ONE Stop: 01/18/20 16:59 Last Admin: 01/18/20 11:29 Dose: 88 mls/hr Documented by: [id number] Insulin Aspart (Novolog Flexpen) 0 units SC Q6 [facility] Stop: 02/17/20 05:59 Last Admin: 01/18/20 11:47 Dose: Not Given Documented by: [id number] Cosigned by: [id number] Admin: 01/18/20 05:36 Dose: Not Given Documented by: [id number] Cosigned by: [id number] Discontinued Medications Etomidate (Amidate) 20 mg IV NOW ONE Stop: 01/17/20 20:20 Last Admin: 01/17/20 20:25 Dose: 20 mg Documented by: [id number] Propofol (Diprivan) 1,000 mg in 100 mls @ 2.7 mls/hr IV .Q24H [facility]; Protocol Stop: 01/20/20 20:37 Last Admin: 01/17/20 22:54 Dose: 15 mcg/kg/min, 8.1 mls/hr Documented by: [id number] Cosigned by: [id number] Sodium Chloride (Nss 1000ml) 2,000 mls @ 999 mls/hr IV .Q2H1M ONE Stop: 01/17/20 22:30 Last Infusion: 01/17/20 21:42 Dose: 0 mls/hr Documented by: [id number] Admin: 01/17/20 20:51 Dose: 999 mls/hr Documented by: [id number] Piperacillin Sod/Tazobactam Sod (Zosyn) 4.5 gm in 120 mls @ 240 mls/hr IV NOW ONE Stop: 01/17/20 21:51 Last Infusion: 01/17/20 21:56 Dose: 0 mls/hr Documented by: [id number] Admin: 01/17/20 21:33 Dose: 240 mls/hr Documented by: [id number] Vancomycin HCl 1,750 mg/ (Sodium Chloride) 535 mls @ 200 mls/hr IV NOW ONE Stop: 01/18/20 00:02 Last Infusion: 01/18/20 00:26 Dose: 0 mls/hr Documented by: [id number] Admin: 01/17/20 21:36 Dose: 200 mls/hr Documented by: [id number] Levetiracetam 1,000 mg/ Sodium (Chloride) 110 mls @ 440 mls/hr IV NOW STA Stop: 01/17/20 23:13 Last Infusion: 01/17/20 23:30 Dose: 0 mls/hr Documented by: [id number] Admin: 01/17/20 23:13 Dose: 440 mls/hr Documented by: [id number] Lactated Ringer's (Lr) 1,000 mls @ 70 mls/hr IV .[id number] DOC Stop: 02/16/20 23:29 Last Infusion: 01/18/20 11:10 Dose: 0 mls/hr Documented by: [id number] Admin: 01/17/20 23:52 Dose: 150 mls/hr Documented by: [id number] Potassium Chloride (K Holden / Wtr) 10 meq in 100 mls @ 100 mls/hr IV Q1H DOC Stop: 01/18/20 03:59 Last Infusion: 01/18/20 04:12 Dose: 0 mls/hr Documented by: [id number] Admin: 01/18/20 03:07 Dose: 100 mls/hr Documented by: [id number] Infusion: 01/18/20 03:05 Dose: 100 mls/hr Documented by: [id number] Admin: 01/18/20 02:05 Dose: 100 mls/hr Documented by: [id number] Acyclovir Sodium 750 mg/ (Dextrose) 265 mls @ 250 mls/hr IV Q8H DOC Stop: 01/28/20 02:59 Last Infusion: 01/18/20 04:11 Dose: 0 mls/hr Documented by: [id number] Admin: 01/18/20 02:59 Dose: 250 mls/hr Documented by: [id number] Piperacillin Sod/Tazobactam (Sod 3.375 gm/ Dextrose) 115 mls @ 28.75 mls/hr IV Q8H DOC; Protocol Stop: 01/25/20 08:59 Last Admin: 01/18/20 09:01 Dose: 28.8 mls/hr Documented by: [id number] Thiamine HCl 100 mg/ Syringe 10 mls @ 2 mls/min IV ONE ONE Stop: 01/18/20 11:34 Last Admin: 01/18/20 11:35 Dose: 2 mls/min Documented by: [id number] Insulin Aspart (Novolog Flexpen) 0 units SC ONE STA Stop: 01/17/20 23:24 Last Admin: 01/17/20 23:43 Dose: Not Given Documented by: [id number] Cosigned by: [id number] Insulin Glargine (Lantus Solostar Pen) 5 units SC NOW STA Stop: 01/17/20 23:16 Last Admin: 01/17/20 23:44 Dose: 5 units Documented by: [id number] Cosigned by: [id number] Ioversol (Optiray 320 125ml) 119 ml IV ONCE PRN PRN Reason: Interaction Checking Stop: 01/21/20 20:58 Last Admin: 01/17/20 20:59 Dose: 119 ml Documented by: [id number] Lorazepam (Ativan) Confirm Administered Dose 2 mg .ROUTE .STK-MED ONE Stop: 01/18/20 01:37 Last Admin: 01/18/20 01:50 Dose: 2 mg Documented by: [id number] Methylprednisolone (Solumedrol) 20 mg IV NOW STA Stop: 01/17/20 23:04 Last Admin: 01/17/20 23:08 Dose: 20 mg Documented by: [id number] Miscellaneous () Confirm Administered Dose 1 ea .ROUTE .STK-MED ONE Stop: 01/17/20 20:17 Last Admin: 01/17/20 20:20 Dose: 1 ea Documented by: [id number] Miscellaneous () 1 ea N/A NOW STA Stop: 01/17/20 20:22 Last Admin: 01/17/20 21:34 Dose: Not Given Documented by: [id number] Propofol (Diprivan) Confirm Administered Dose 1,000 mg IV .STK-MED ONE Stop: 01/17/20 20:28 Last Admin: 01/17/20 20:52 Dose: Not Given Documented by: [id number] Succinylcholine Chloride (Quelicin) 100 mg IV NOW STA Stop: 01/17/20 20:20 Last Admin: 01/17/20 20:25 Dose: 100 mg Documented by: [id number] Description This is a 21 electrode EEG with a single channel dedicated to limited EKG. The electrodes were placed in accordance with the International 10-20 system. His EEG was done at the bedside is of reasonable technical quality with a simultaneous video analysis of patient movement and behavior Photic stimulation was performed. There is a number of muscle and movement artifacts and video recording does demonstrate patient head movement and arm movement but the tracing is quite interpretable despite this During what appears to be clinical wakefulness or at least an encephalopathic state there is no evidence for normal background rhythm in the alpha range but rather a slightly posterior maximal rhythm in the mid theta range at 6 to 7 Hz which is of up to 20 V in amplitude and is symmetrical. Modest amplitude mid to lower frequency theta activity intermixed with waveforms in the delta range is seen over central regions predominantly but extends both anteriorly and posteriorly and remain symmetrical without any focal accentuation Beta activity is very difficult to definitely identify due to the superimposed muscle artifact and frontal regions Photic stimulation provokes no significant response or changes At no time is or clear evidence for potentially epileptogenic activity Interpretation This is a moderately diffusely abnormal EEG consistent with a nonspecific generalized and nonfocal encephalopathy and one that is not accompanied by any current clear-cut potentially epileptogenic discharges. In light of the clinical history this may be a post ictal pattern but in light of some aspects of the clinical history one has to question whether some of this may be a bas emmanuel recording in a man with a longstanding anoxic encephalopathy Clinical Correlation Patient is consistent with a nonspecific generalized encephalopathy which may be due to a postictal state, metabolic abnormality, a toxic exposure or in this particular case could be to some degree a baseline recording in a man with a longstanding encephalopathy of post anoxic type. Of importance is the fact that the tracing does not show evidence for ongoing subclinical seizure activity or for clear-cut potentially epileptogenic discharges although the absence of the latter does not exclude the diagnosis of a seizure disorder Mitch Montemayor MD
[2020-01-18] MEDS: LACTATED RINGER'S 1,000 ML IV SCH (18:18)
[2020-01-18] MEDS: IPRATROPIUM BROMIDE HFA INHALER INH SCH ×4 (19:20→19:52)
[2020-01-18] MEDS: ALBUTEROL HFA 8 GM INHALER INH SCH ×3 (19:21→21:19)
[2020-01-19] MEDS: INSULIN ASPART 100 UNITS/ML 3 ML PEN SC SCH ×2 (01:19→06:02)
[2020-01-19] MEDS: ALBUTEROL HFA 8 GM INHALER INH SCH ×4 (01:20→19:25)
--- NOTE | 2020-01-19 05:39 | Electrocardiogram Report ---
Test Reason : Blood Pressure : / mmHG Vent. Rate : 113 BPM Atrial Rate : 113 BPM P-R Int : 140 ms QRS Dur : 104 ms QT Int : 312 ms P-R-T Axes : 064 070 025 degrees QTc Int : 427 ms Sinus tachycardia Incomplete right bundle branch block Borderline ECG When compared with ECG of 11-JUN-2006 05:53, Incomplete right bundle branch block is now Present Confirmed by Maninder Vences ([id number]) on 01/19/2020 5:39:22 AM Referred By: REFERRED SELF Confirmed By:Maninder Vences
--- NOTE | 2020-01-19 05:50 | Electrocardiogram Report ---
Test Reason : Blood Pressure : / mmHG Vent. Rate : 070 BPM Atrial Rate : 070 BPM P-R Int : 164 ms QRS Dur : 088 ms QT Int : 376 ms P-R-T Axes : 066 073 066 degrees QTc Int : 406 ms Normal sinus rhythm Normal ECG When compared with ECG of 17-JAN-2020 20:13, Vent. rate has decreased BY 43 BPM Incomplete right bundle branch block is no longer Present Confirmed by Maninder Vences ([id number]) on 01/19/2020 5:50:24 AM Referred By: REFERRED SELF Confirmed By:Maninder Vences
[2020-01-19 05:54] LABS: Basophils # (auto) 0.02 K/uL (0-0.2); Basophils % (auto) 0.2 %; Eosinophils # (auto) 0.04 K/uL (0-0.5); Eosinophils % (auto) 0.4 %; Hematocrit (blood only) 37.8 % (42-52); Hemoglobin 11.8 g/dL (14.0-18.0); Immature Granulocytes # (auto) 0.03 K/uL (0.00-0.02); Immature Granulocytes % (auto) 0.3 %; Lymphocytes # (auto) 1.28 K/uL (1.2-3.4); Lymphocytes % (auto) 13.7 %; Mean Corpuscular Hgb Conc 31.2 g/dL (32-36); Mean Corpuscular Volume 102.4 fL (80-100); Mean Platelet Volume 9.2 fL (7.4-10.4); Monocytes # (auto) 0.75 K/uL (0.11-0.59); Neutrophils # (auto) 7.24 K/uL (1.4-6.5); Neutrophils % (auto) 77.4 %; Platelet Count 152 K/uL (130-400); RDW Coefficient of Variation 13.8 % (11.5-14.5); RDW Standard Deviation 52.2 fL (36.4-46.3); Red Blood Count 3.69 M/uL (4.7-6.1); White Blood Count 9.36 K/uL (4.8-10.8)
--- NOTE | 2020-01-19 06:21 | Billing Data ---
Date of Service January 18, 2020 Coding
--- NOTE | 2020-01-19 06:30 | Critical Care Progress Note ---
Date of Service January 19, 2020 Assessment & Plan (1) Altered mental status: Kishor More is a 59 y/o M with witnessed seizure-like activity, at that time GCS of 7 Neuro: - [facility] ICU: positive - Altered mental status - Keppra 500mg BID - CT hed and CTA head and neck negative - LP mildly elevated protein, CSF biofire egative - BUN, NH4, CO2 WNL - MRI demonstrated no acute intracranial abnormality, some age-related atrophy - EEG no focal seizure demonstrated - Neurology consulted, f/u recs - stable to be transferred to med/tele Cardiac: - Currently hemodynamically stable without pressors and normal sinus rhythm - troponin negative - continue to monitor on telemetry Respiratory: - neuro status improved on 01/17, successfully extubated - continues to maintain sats >90% on room air this morning GI: - Regular diet Renal/Lytes: - Creatinine stable - Lactic acidosis: patient presents with mild lactic acidosis, trended down to 0.9 - Phos 2.3 this AM; repleted with 18mmol KPhos - continue to monitor BMPs : - continue to monitor I's and O's ENDO: - No history of thyroid disease or diabetes HEME: - H&H stable - continue to monitor CBCs ID: - Continue Zosyn for suspected aspiration pneumonia on chest x-ray - Pro [place] negative, lactate trended down 0.9 - BC NG@24hrs - LP culture NG@24hrs; BioFire negative Lines/IV access: - Peripheral IVs DVT PROPHYLAXIS: - Lovenox (2) Aspiration pneumonia: (3) Obtundation: (4) Seizures: (5) Lactic acidosis: (6) Bipolar disorder: (7) History of repeated overdose: (8) Seizure-like activity: Admission and Anticipated Discharge Date Admission Date: January 17, 2020 Supervising Physician Co-Signing Physician Notes Dr. Castle was resident physician during care of patient. I separately evaluated patient for escobar portions of the history and the exam. I was present during the critical portion of medical decision making, and I discussed the case with the resident. I generally agree with the findings and plan. Patient reportedly back to baseline per discussion with brother by staff. No additional seizure activity reported. Stable for downgrade out of ICU. Subjective Patient continues to sat >90% on room air, patient was awake and alert this morning, but only moaning responses to all questions, does not follow commands. Family believes that he is now returning back towards his normal baseline. Review of Systems Review of Systems: Unobtainable due to cognitive status Physical Exam Constitutional: WD/WN, vitals as above Eyes: PERRL, conjunctivae normal, anicteric sclerae ENMT: external ear and nose normal, oropharynx normal Neck: normal visual inspection Respiratory: normal respiratory effort, lungs clear to auscultation Cardiovascular: Rate/Rhythm: regular rate and regular rhythm Heart Sounds: normal S1 and normal S2; no gallop, no murmur and no cardiac rub Vessels: no JVD Extremities: no pedal edema Gastrointestinal (Abdomen): normal bowel sounds, soft, nontender, no hepatosplenomegaly Musculoskeletal: no cyanosis or clubbing, extremities motor strength 5/5 Skin: no rashes, warm and dry Neurologic: patellar DTR's 2+ bilat, sensation intact Psychiatric: Orientation: alert; + not oriented to person, + not oriented to place and + not oriented to time Eye Contact: + poor eye contact Lymphatic: no cervical or axillary lymphadenopathy Results & Data ([facility]) Vital Signs (Past 12 Hours) Vital Signs Temp Pulse BP Pulse Ox 01/19/20 05:56 59 L 125/69 94 01/19/20 04:56 64 126/62 94 01/19/20 03:56 63 115/71 96 01/19/20 02:56 63 110/60 95 01/19/20 01:56 69 120/65 96 01/19/20 00:56 61 122/62 01/18/20 23:56 36.8 C 63 113/58 L 94 01/18/20 22:56 76 120/67 92 01/18/20 21:56 68 118/67 91 01/18/20 20:56 70 117/60 95 01/18/20 20:36 66 116/68 92 01/18/20 20:00 67 01/18/20 19:57 37 C 70 115/65 01/18/20 18:56 79 117/64 93 Laboratory Results 01/19/20 01/19/20 01/19/20 Range/Units 05:39 05:37 05:37 WBC 9.36 (4.8-10.8) K/uL RBC 3.69 L (4.7-6.1) M/uL Hgb 11.8 L (14.0-18.0) g/dL Hct 37.8 L (42-52) % MCV 102.4 H (80-100) fL MCH 32.0 (25-34) pg MCHC 31.2 L (32-36) g/dL RDW Std Deviation 52.2 H (36.4-46.3) fL RDW Coeff of Joey 13.8 (11.5-14.5) % Plt Count 152 (130-400) K/uL MPV 9.2 (7.4-10.4) fL Immature Gran % (Auto) 0.3 % Neut % (Auto) 77.4 % Lymph % (Auto) 13.7 % Pacific % (Auto) 8.0 % Eos % (Auto) 0.4 % Baso % (Auto) 0.2 % Immature Gran # (Auto) 0.03 H (0.00-0.02) K/uL Neut # (Auto) 7.24 H (1.4-6.5) K/uL Lymph # (Auto) 1.28 (1.2-3.4) K/uL Pacific # (Auto) 0.75 H (0.11-0.59) K/uL Eos # (Auto) 0.04 (0-0.5) K/uL Baso # (Auto) 0.02 (0-0.2) K/uL Sodium 142 (136-145) mmol/L Potassium 4.1 (3.5-5.1) mmol/L Chloride 111 H (98-107) mmol/L Carbon Dioxide 29 (21-32) mmol/L Anion Gap 2.0 L (3-11) BUN 8 (7-18) mg/dl Creatinine 0.85 (0.6-1.4) mg/dl Est Cr Clr Drug Dosing 98.4 ml/min Est GFR ( Amer) 109.8 Est GFR (Non-Af Amer) 94.7 BUN/Creatinine Ratio 9.2 L (10-20) Glucose 106 H (70-99) mg/dl POC Glucose 100 H (70-99) mg/dl Calcium 8.6 (8.5-10.1) mg/dl Phosphorus 2.3 L D (2.5-4.9) mg/dl Magnesium 2.0 (1.8-2.4) mg/dl 01/19/20 01/18/20 Range/Units 00:46 17:40 WBC (4.8-10.8) K/uL RBC (4.7-6.1) M/uL Hgb (14.0-18.0) g/dL Hct (42-52) % MCV (80-100) fL MCH (25-34) pg MCHC (32-36) g/dL RDW Std Deviation (36.4-46.3) fL RDW Coeff of Joey (11.5-14.5) % Plt Count (130-400) K/uL MPV (7.4-10.4) fL Immature Gran % (Auto) % Neut % (Auto) % Lymph % (Auto) % Pacific % (Auto) % Eos % (Auto) % Baso % (Auto) % Immature Gran # (Auto) (0.00-0.02) K/uL Neut # (Auto) (1.4-6.5) K/uL Lymph # (Auto) (1.2-3.4) K/uL Pacific # (Auto) (0.11-0.59) K/uL Eos # (Auto) (0-0.5) K/uL Baso # (Auto) (0-0.2) K/uL Sodium (136-145) mmol/L Potassium (3.5-5.1) mmol/L Chloride (98-107) mmol/L Carbon Dioxide (21-32) mmol/L Anion Gap (3-11) BUN (7-18) mg/dl Creatinine (0.6-1.4) mg/dl Est Cr Clr Drug Dosing ml/min Est GFR ( Amer) Est GFR (Non-Af Amer) BUN/Creatinine Ratio (10-20) Glucose (70-99) mg/dl POC Glucose 73 79 (70-99) mg/dl Calcium (8.5-10.1) mg/dl Phosphorus (2.5-4.9) mg/dl Magnesium (1.8-2.4) mg/dl Medications Administered Current Inpatient Medications Albuterol (Ventolin Hfa) 4 puffs INH Q6R DOC Stop: 02/17/20 01:48 Last Admin: 01/19/20 06:03 Dose: Not Given Documented by: Dextrose (Dextrose 50%) 25 - 50 ml IV UD PRN; Protocol PRN Reason: Hypoglycemia Protocol Stop: 02/16/20 23:14 Enoxaparin Sodium (Lovenox) 40 mg SQ QAM DOC Stop: 02/17/20 08:59 Last Admin: 01/19/20 11:57 Dose: 40 mg Documented by: Glucagon (Glucagen) 1 mg SQ UD PRN; Protocol PRN Reason: Hypoglycemia Protocol Stop: 02/16/20 23:14 Glucose (Dex4 Glucose) 4 - 8 tabs PO UD PRN; Protocol PRN Reason: Hypoglycemia Protocol Stop: 02/16/20 23:14 Glucose (Glucose 40%) 15 - 30 gm PO UD PRN; Protocol PRN Reason: Hypoglycemia Protocol Stop: 02/16/20 23:14 Levetiracetam 500 mg/ Sodium (Chloride) 105 mls @ 440 mls/hr IV BID [facility] Stop: 02/17/20 08:59 Last Infusion: 01/19/20 10:14 Dose: Infused Documented by: Lorazepam (Ativan) 1 mg in 2 mls @ 0.5 mls/min IV Q10M PRN PRN Reason: seizures Stop: 02/17/20 01:48 Acetaminophen (Ofirmev) 1,000 mg in 100 mls @ 400 mls/hr IV Q8H PRN PRN Reason: Fever/pain Stop: 01/21/20 01:48 Famotidine 20 mg/ Syringe 5 mls @ 2.5 mls/min IV DAILY DOC Stop: 02/17/20 08:59 Last Admin: 01/19/20 10:00 Dose: 2.5 mls/min Documented by: Promethazine HCl 12.5 mg/ (Sodium Chloride) 50.5 mls @ 202 mls/hr IV Q6H PRN PRN Reason: Nausea And Vomiting Stop: 02/17/20 01:48 Miscellaneous (Carbohydrates For Hypoglycemia) 15 - 30 gm PO UD PRN PRN Reason: Hypoglycemia Protocol Stop: 02/16/20 23:14 Miscellaneous (Icu Protocol For Hyperglycemia) 1 ea N/A PRN PRN; Protocol PRN Reason: Hyperglycemia Protocol Stop: 01/20/20 01:48 Resident Activity Tracking Resident Involvement: Resident Care Provided Care Provided: Adult Hospital Medicine
[2020-01-19 06:31] LABS: BUN Creatinine Ratio 9.2 (10-20); Calcium 8.6 mg/dl (8.5-10.1); Creatinine Clr Calc Pharmacy 98.4 ml/min; Est GFR (African American) 109.8; Est GFR (Non-African American) 94.7; Potassium 4.1 mmol/L (3.5-5.1)
--- NOTE | 2020-01-19 07:19 | Hospitalist Progress Note ---
Date of Service delayed entry date of service noted below January 19, 2020 Assessment & Plan (1) Acute hypoxemic respiratory failure: Hypoxemic, hypercapnic respiratory failure likely secondary to breakthrough seizure hx seizure disorder secondary to anoxic brain injury off Depakote since 2010 as per outpatient records -- intubated at the ER s/p Extubation 01/19/20 -- CXR: 1. Endotracheal tube 6 cm above the irene 2. Nasogastric tube within the stomach 3. Scattered interstitial opacities likely atelectatic -- on Keppra 500mg IV BID EEG neurologist consulted -- Albuterol q6h -- PT/OT evaluation Respiratory acidosis secondary to above -- resolved hx COPD as per records, past tobacco abuse -- not in exacerbation hx mood disorder/personality disorder -- on Fluvoxamine, lithium, venlafaxine per home medication list Hypokalemia -- resolved Functional disability DVT prophylaxis per Lovenox subcu Full code Patient's brother requesting updates for providers. Mr. Bean More, contact #[phone], [phone]. Total critical care time was 40 minutes. Text document was generated using tuul voice recognition software. It may contain grammatical or spelling errors. Kindly contact undersigned for clarification of any documentation item in question. Admission and Anticipated Discharge Date Admission Date: January 17, 2020 Subjective ff up for respiratory failure, possible seizure s/p extubation in the morning on 4 L NC, not in distress patient seems drowsy, but somewhat restless confused, does not respond to questions, occasionally moans does not follow commands no other signs/symptoms noted Review of Systems Review of Systems: All systems reviewed & are unremarkable except as noted in HPI & below Physical Exam Physical Exam: General- not oriented, drowsy, not in distress,breathing with no effort or accessory muscle use Head- atraumatic Eyes- PERRL, EOMI, anicteric ENT- oropharynx clear Neck- supple, no JVD, no adenopathy, no thyromegaly; carotids +2/2, no bruits appreciated Lungs- clear to auscultation bilaterally, no rales/wheezes Heart- normal rate, regular rhythm; no murmur, no gallop, no rub appreciated Abdomen- normal bowel sounds, nondistended, soft, nontender, no masses or hepatosplenomegaly Extremities- no pretibial edema, no calf tenderness; peripheral pulses intact (+) excoriations on BL lower legs Neuro- drowsy, not oriented, moans to answer questions; cannot do full neuro exam due to cognitive status, but no facial droop, moves all extremities equally Skin- warm & dry Results & Data ([facility]) Vital Signs (Past 12 Hours) Vital Signs Temp Pulse BP Pulse Ox 01/19/20 05:56 59 L 125/69 94 01/19/20 04:56 64 126/62 94 01/19/20 03:56 63 115/71 96 01/19/20 02:56 63 110/60 95 01/19/20 01:56 69 120/65 96 01/19/20 00:56 61 122/62 01/18/20 23:56 36.8 C 63 113/58 L 94 01/18/20 22:56 76 120/67 92 01/18/20 21:56 68 118/67 91 01/18/20 20:56 70 117/60 95 01/18/20 20:36 66 116/68 92 01/18/20 20:00 67 01/18/20 19:57 37 C 70 115/65 Laboratory Results all noted and reviewed
[2020-01-19 08:17] LABS: Phosphorus 2.3 mg/dl (2.5-4.9)
[2020-01-19] MEDS: levETIRAcetam 500 MG in 0.9 % SODIUM CHLORIDE 100 ML IV SCH ×2 (09:59→20:25)
[2020-01-19] MEDS: FAMOTIDINE 20 MG in SYRINGE 3 ML IV SCH (10:00)
[2020-01-19] MEDS: ENOXAPARIN INJ 40 MG/0.4 ML SYR SQ SCH (11:57)
--- NOTE | 2020-01-19 14:06 | Neurology Progress Note ---
Date of Service January 19, 2020 Assessment & Plan (1) Seizure-like activity: 1. LP- non contributory 2. increased Lactate 2.1 3. lithium level sub therapeutic 4. family for baseline 5. MRI- no acute findings 6. CTA head and neck no significant narrowing or occlusion 7. EEG- no focal seizure seen on EEG 8. psychiatry -for behavioral issues and direction of care 9. start antiepileptic medication would not use Keppra, may be better choose Tegretol or Depakote or Lamictal (but this takes to long to load). Once psychiatry see him it would be helpful if they would comment on what they would prefer. 10. PT/OT for discharge needs (2) Acute hypoxemic respiratory failure: (3) Bipolar disorder: (4) Lactic acidosis: (5) Aspiration pneumonia: Admission and Anticipated Discharge Date Admission Date: January 17, 2020 Supervising Physician Co-Signing Physician Notes I have seen and discussed above patient with Dr Mitch Montemayor, neurology I saw Mr. 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 For behavioral control Depakote or Tegretol might be reasonable choices. Keppra I fear is likely make him more irritable but is a more benign of the agents in terms of hepatic and hematologic toxicity and in terms of interacting with other drugs and Lamictal might be the best but would take too long to titrate up to a therapeutic range and put this man at risk for seizures unless we would build up slowly as we keep him on Keppra and then convert over We will check back tomorrow to see what psychiatry has to say. I will defer to some degree to their judgment regarding the appropriate anticonvulsant in the setting Mitch Montemayor MD Mason Iverson is a 59 year old male with PMH- bipolar disorder, narcissistic personality disorder, multiple prior episodes of overdoses with last admission in 2005 for overdose of Seroquel and prior overdoses of lithium and Tegretol who presents emergency department after becoming unresponsive when he was in the car with his brother, foaming at the mouth with no overt seizure-like activity reported but continued to be obtunded upon arrival by EMS. There were some f asciculations of his left lower leg for which she was given 2 mg of Ativan with improvement. HE was obtunded and unresponsive to painful stimulus in the ED. There is no response to corneal stimulus though there is report of a history of being blind. He was intubated for airway protection after okay with intubation from brother.There was a LP done also with ok from brother. Today he is sitting up in bed and more interactive. 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 denies CP, SOB, abdominal pain, one sided weakness, numbness tingling, N, V. Physical Exam Physical Exam: Gen: alert interactive Lungs CTA CV RRR states at [facility], does not know year cooperates with exam squeezes hands biceps triceps 5/5 hip flex 5/5 bilaterally sensation intact to light and cool touch Results & Data ([facility]) Vital Signs (Past 12 Hours) Vital Signs Temp Pulse Resp BP Pulse Ox 01/19/20 12:00 80 01/19/20 11:56 36.7 C 81 18 120/82 01/19/20 11:06 67 126/73 01/19/20 09:56 55 L 119/73 01/19/20 08:56 79 132/71 01/19/20 08:00 62 01/19/20 07:56 36.8 C 60 121/65 94 01/19/20 06:56 65 131/72 80 L 01/19/20 05:56 59 L 125/69 94 01/19/20 04:56 64 126/62 94 01/19/20 03:56 63 115/71 96 01/19/20 02:56 63 110/60 95 Laboratory Results Abnormal lab results 01/19/20 01/19/20 01/19/20 Range/Units 05:37 05:37 05:39 RBC 3.69 L (4.7-6.1) M/uL Hgb 11.8 L (14.0-18.0) g/dL Hct 37.8 L (42-52) % MCV 102.4 H (80-100) fL MCHC 31.2 L (32-36) g/dL RDW Std Deviation 52.2 H (36.4-46.3) fL Immature Gran # (Auto) 0.03 H (0.00-0.02) K/uL Neut # (Auto) 7.24 H (1.4-6.5) K/uL Richardson # (Auto) 0.75 H (0.11-0.59) K/uL Chloride 111 H (98-107) mmol/L Anion Gap 2.0 L (3-11) BUN/Creatinine Ratio 9.2 L (10-20) Glucose 106 H (70-99) mg/dl POC Glucose 100 H (70-99) mg/dl Phosphorus 2.3 L D (2.5-4.9) mg/dl Diagnostic Findings no new imaging
--- NOTE | 2020-01-19 14:33 | Psychiatric Consultation ---
Date of Consultation January 19, 2020 Impression / Recommendations Impression Dr. Tyra Kim was directly involved in review and discussion of the patient's case and participated in medical decision making regarding treatment recommendations. RECOMMENDATIONS: 01/18 - Pt remains disoriented to time and denies recall of events leading to admission. Pt is a limited historian presently. Will request collateral information from brother or other outpatient supports regarding his psychiatric treatment history. - Reviewed documentation for this hospitalization, specifically neurology's request for our service's input regarding antiepileptic medication option that can serve a dual-purpose for management of patient's bipolar disorder in conjunction with his seizure disorders. Agree, Keppra is not an ideal medication psychiatrically as it can often contribute to mood instability and increased anger/agitation. Our service would suggest Depakote as the most appropriate option at this time for managing patient's bipolar disorder in conjunction with his seizure disorder. Will defer recommendations for initiation/loading to neurology. It is agreed that Lamictal would be a decent consideration as well, but would require a prolonged period of time to get to therapeutic dosing and therefore may not be ideal in the short-term. - History from brother or other supports will assist with shaping recommendations for the remainder of his psychiatric medication regimen. At this time, it seems appropriate to resume his home psychotropic medication regimen: aripiprazole 15mg daily, lithium 300mg qAM and 600mg qHS, and venlafaxine 150mg qAM. Pt does not believe that he is prescribed fluvoxamine any longer, but is admittedly uncertain if this is true. It seems reasonable to hold this medication until we can confirm his outpatient history. - Will attempt to refer patient to [facility] initially, in order to continue treatment with his previous psychiatrist from [facility]. If unavailable for appointments, can make referrals to other psychiatric clinics for outpatient medication management. Psych History Identifying Data 59-year-old male admitted medically on 01/17/2020 after presenting to the ED via brother for an episode of unresponsiveness following suspected seizure activity. According to documentation, patient required intubation and was extubated this morning. Psychiatric consultation was requested for management of medications for his historical diagnosis of bipolar disorder, and for coordination of medications with neurology, who has also been consulted on patient's case. Chief Complaint "Um, I don't know." History of Present Illness Kishor More is a 59-year-old male admitted medically on 01/17/2020 after his brother noticed patient to be minimally responsive during interaction. Pt is suspected of having seizure activity, and required intubation shortly after his presentation to the hospital as there was no observed change in his level of responsiveness. Neurology was consulted for evaluation and recommendations regarding suspected seizure activity. Given history of reported bipolar disorder, psychiatric consultation was also requested to provide medication management in collaboration with neurology's recommendations. Pt is cooperative with attempt at psychiatric evaluation, though is admittedly confused at this time. He answers appropriately for orientation to person and place, but is unaware of the time - actually believing it to be Fall and requiring multiple choice options in order to correctly guess the year. Pt was even asked what holiday January 18 is, and responded by saying "?" Pt admits he is unable to recall the events leading to his admission - simply stating "I don't know" repeatedly. He is also unable to provide his last memory prior to coming to the hospital. Fortunately, patient is stating he is "fine" and "feeling good" presently - denying any current physical concerns. It appears the patient was rather well-known to our service in the past, but most recent psychiatric history as seen by this provider was from an inpatient admission in 2005. According to documentation from this visit, the patient had been diagnosed with bipolar disorder, marijuana dependence, and narcissistic personality disorder. Pt states he had been following routinely with Dr. Luna at [facility], and is unsure when he was last seen there. He admits he was made aware of the office's plan to close, so it was likely not more than 4-5 months ago. He did fill #90 day supplies of his prescriptions as recently as 11/2019. Pt's perception of his mood is that it has been "fine" and "stable" recently. He denies any significant changes to his medications at his last appointment. Pt denies SI or safety concerns at home. There is no mention at this time of inability to care for self that is directly related to his psychiatric conditions. Information was reviewed with patient regarding request for our service's input regarding seizure medications - he does recall having been on Depakote in the past and states he would be willing to return to this medication if recommended. Otherwise, the only possible discrepancy reported at this time is regarding the patient's fluvoxamine prescription. Pt states he has not previously heard of this medication and does not believe it is being prescribed - though admits he may also be wrong about this. Past Psychiatric History Current Psychiatric Diagnosis: Bipolar disorder, Narcissistic personality disorder Outpatient Services: Denies present present outpatient providers - he was last seen by Dr. Luna at [facility] Previous Psych Admissions: Pt has a history of numerous inpatient psychiatric admission at our facility in the past. Most recent admission to [facility] appears to have been in 2005. History of Previous Suicide Attempt: Yes Describe Attempts in the Past: Overdose attempts in the past Past Medication Trials: According to previous documentation - includes, but certainly not limited to: 1. Tegretol 2. Novelty 3. Seroquel 4. Prozac 5. Ativan 6. Depakote 7. Luvox 8. Abilify 9. Effexor Allergies Allergy/AdvReac Type Severity Reaction Status Date / Time No Known Allergies Allergy Unknown Verified 01/17/20 22:34 Home Medications Home Medications Medication Instructions Recorded Confirmed Type Q-Pap 650 mg PO UD PRN 01/17/20 History aripiprazole 15 mg PO HS 01/17/20 01/17/20 History fluvoxamine 100 mg PO HS 01/17/20 01/17/20 History ketoconazole 1 applic TOPICAL UD 01/17/20 01/17/20 History lithium carbonate 300 mg PO QAM 01/17/20 01/17/20 History lithium carbonate 600 mg PO HS 01/17/20 01/17/20 History venlafaxine 150 mg PO QAM 01/17/20 01/17/20 History Family History Father - previous psychiatric hospitalizations, for unspecified psychiatric disorder, history of alcoholism. Mother had attempted suicide. Substance Abuse History Pt does have a history of cannabis abuse - unable to obtain reliable information at this time regarding current substance use. Personal History Marital Status: (was previously in mid-twenties; at least by 2006 psych admission) Number Of Children: 2006 Psychiatric admission notes 3 children Patient History Medical History Bipolar disorder History of repeated overdose Social History Preferred Language: Spanish Communication Ability: unknown pt Current Living Situation: Family Other Information That Helps Us Care for You: No Smoking Status: Unknown if ever smoked Physical Exam Psychiatric: Orientation: alert, oriented to person and oriented to place; + not oriented to time thought it was Fall, had to be given multiple choice options to select appropriate year of 2019. When asked what holiday is on 01/19/2020 (today) the patient states "?" He is unable to recall any of the events leading to his admission, unable to recall his most recent memory. Apperance: appropriately dressed and + disheveled; + inappropriately groomed male of healthy-appearing weight, laying in bed in no acute distress. Pt is appropriately dressed, wearing a hospital gown. He is appearing unkempt, with multiple areas of excoriation with dried blood. Hygiene appears limited. Eye Contact: + poor eye contact (documented as legally blind, therefore not likely abnormal finding ) Motor Behavior: no abnormal motor movements (observed while laying in bed) Speech: normal rate/rhythm/volume of speech (brief, vague responses to most questions) Affect: + flat affect; no depressed affect and no anxious affect Mood: no depressed mood and no anxious mood "I've been fine" and "stable" Thought Process: + concrete thought process Thought Content: not paranoid, no delusions and no hopelessness Suicidal Thoughts: denies suicidal thoughts, denies suicidal plan and denies suicidal intent Homicidal Thoughts: denies homicidal thoughts Hallucinations: no auditory hallucinations and no visual hallucinations Cognition: attention grossly intact and language grossly intact; + recent memory not intact Estimated Intelligence: + below average estimated intelligence Insight: + impaired insight Judgement: + impaired judgement Vital Signs (Past 24 Hours): Last Vital Signs Temp 36.9 C 01/19/20 14:02 Pulse 70 01/19/20 14:03 Resp 18 01/19/20 14:02 BP 129/74 01/19/20 14:02 Pulse Ox 96 01/19/20 14:02 Review of Systems Constitutional: admits to feeling disoriented and confused Cardiovascular: denied Respiratory: denied Gastrointestinal: denied Neurological: denied Psychiatric: denies symptoms other than stated above Total of at least 10 systems reviewed, pertinent positives as above and in HPI. Results & Data ([facility]) Medications Administered Albuterol (Ventolin Hfa) 4 puffs INH Q6R DOC Stop: 02/17/20 01:48 Last Admin: 01/19/20 06:03 Dose: Not Given Documented by: [id number] Admin: 01/19/20 01:20 Dose: Not Given Documented by: [id number] Admin: 01/18/20 21:19 Dose: Not Given Documented by: [id number] Admin: 01/18/20 19:22 Dose: Not Given Documented by: [id number] Admin: 01/18/20 19:21 Dose: Not Given Documented by: [id number] Admin: 01/18/20 19:21 Dose: Not Given Documented by: [id number] Enoxaparin Sodium (Lovenox) 40 mg SQ QAM DOC Stop: 02/17/20 08:59 Last Admin: 01/19/20 11:57 Dose: 40 mg Documented by: [id number] Admin: 01/18/20 09:00 Dose: 40 mg Documented by: [id number] Levetiracetam 500 mg/ Sodium (Chloride) 105 mls @ 440 mls/hr IV BID DOC Stop: 02/17/20 08:59 Last Infusion: 01/19/20 10:14 Dose: 0 mls/hr Documented by: [id number] Admin: 01/19/20 09:59 Dose: 440 mls/hr Documented by: [id number] Infusion: 01/18/20 21:48 Dose: 0 mls/hr Documented by: [id number] Admin: 01/18/20 21:22 Dose: 440 mls/hr Documented by: [id number] Infusion: 01/18/20 09:15 Dose: 0 mls/hr Documented by: [id number] Admin: 01/18/20 08:59 Dose: 440 mls/hr Documented by: [id number] Famotidine 20 mg/ Syringe 5 mls @ 2.5 mls/min IV DAILY DOC Stop: 02/17/20 08:59 Last Admin: 01/19/20 10:00 Dose: 2.5 mls/min Documented by: [id number] Admin: 01/18/20 09:00 Dose: 2.5 mls/min Documented by: [id number] Coding Level of Care Code 97593 [facility] Intl Hosp Care Lvl 2
--- NOTE | 2020-01-19 20:23 | Hospitalist Progress Note ---
Date of Service January 19, 2020 Assessment & Plan (1) Acute hypoxemic respiratory failure: 59-year-old male with history of seizure disorder secondary to anoxic brain injury, mood disorder, COPD, functional disability Presents with breakthrough seizure. HYPOXEMIC, HYPERCAPNIC RESPIRATORY FAILURE LIKELY SECONDARY TO BREAKTHROUGH SEIZURE HISTORY OF SEIZURE DISORDER SECONDARY TO ANOXIC BRAIN INJURY off Depakote since 2010 as per outpatient records -- intubated at the ER s/p Extubation 01/19/20 -- CXR: 1. Endotracheal tube 6 cm above the irene 2. Nasogastric tube within the stomach 3. Scattered interstitial opacities likely atelectatic --Started on on Keppra 500mg IV BID EEG: Moderately diffusely abnormal EEG consistent with a nonspecific generalized and nonfocal encephalopathy and one that is not accompanied by any current clear-cut potentially epileptogenic discharges. In light of the clinical history this may be a post ictal pattern but in light of some aspects of the clinical history when asked a question whether some of this may be a baseline recording in a man with a longstanding anoxic encephalopathy. --Neurology consulted Continue Keppra 500 mg IV for now Psychiatry consultation recommended HISTORY OF MOOD DISORDER/PERSONALITY DISORDER -- on Fluvoxamine, lithium, venlafaxine per home medication list --Psychiatry service consulted, recommending: "Continue aripiprazole 15mg daily, lithium 300mg qAM and 600mg qHS, and venlafaxine 150mg qAM. Pt does not believe that he is prescribed fluvoxamine any longer, but is admittedly uncertain if this is true. It seems reasonable to hold this medication until we can confirm his outpatient history. " COPD, PAST SMOKER -- not in exacerbation Continue albuterol HYPOKALEMIA -- resolved FUNCTIONAL DISABILITY --PT OT evaluation ordered DVT prophylaxis per Lovenox subcu Full code Disposition --Usually lives with his mother, but she is currently hospitalized --PT OT evaluation ordered --renewals manager on board Admission and Anticipated Discharge Date Admission Date: January 17, 2020 Subjective Follow-up for seizures Patient transferred out of ICU today, seen in the medical gonzalez Patient is sitting in bed, not in distress, more alert, oriented to person and place Answers most questions appropriately, calm and cooperative Denies headache, dizziness, chest pain, shortness of breath, abdominal pain No fever or chills Denies other symptoms Review of Systems Review of Systems: All systems reviewed & are unremarkable except as noted in HPI & below Physical Exam Physical Exam: General- oriented x 2, not in distress, speaks in sentences with no effort or accessory muscle use Head- atraumatic Eyes- PERRL, EOMI, anicteric ENT- oropharynx clear Neck- supple, no JVD, no adenopathy, no thyromegaly; carotids +2/2, no bruits ap preciated Lungs- clear to auscultation bilaterally, no rales/wheezes Heart- normal rate, regular rhythm; no murmur, no gallop, no rub appreciated Abdomen- normal bowel sounds, nondistended, soft, nontender, no masses or hepatosplenomegaly Extremities- Positive excoriations bilateral lower legs no pretibial edema, no calf tenderness; peripheral pulses intact Neuro- alert, oriented x 2; CN 2-12 grossly intact; motor 5/5 bilaterally;sensation 100% on all extremities; no other gross focal neurologic deficits Skin- warm & dry Results & Data ([facility]) Vital Signs (Past 12 Hours) Vital Signs Temp Pulse Pulse Pulse Resp BP BP 01/19/20 19:00 36.8 C 84 17 124/70 01/19/20 16:42 64 01/19/20 15:50 37.1 C 63 17 123/70 01/19/20 14:03 70 01/19/20 14:02 36.9 C 74 18 129/74 01/19/20 12:00 80 01/19/20 11:56 36.7 C 81 18 120/82 01/19/20 11:06 67 126/73 01/19/20 09:56 55 L 119/73 01/19/20 08:56 79 132/71 Pulse Ox 01/19/20 19:00 95 01/19/20 16:42 01/19/20 15:50 93 01/19/20 14:03 01/19/20 14:02 96 01/19/20 12:00 01/19/20 11:56 01/19/20 11:06 01/19/20 09:56 01/19/20 08:56 Laboratory Results Laboratory Results - last 24 hr 01/19/20 01/19/20 01/19/20 00:46 05:37 05:37 WBC 9.36 RBC 3.69 L Hgb 11.8 L Hct 37.8 L MCV 102.4 H MCH 32.0 MCHC 31.2 L RDW Std Deviation 52.2 H RDW Coeff of Joey 13.8 Plt Count 152 MPV 9.2 Immature Gran % (Auto) 0.3 Neut % (Auto) 77.4 Lymph % (Auto) 13.7 [place] % (Auto) 8.0 Eos % (Auto) 0.4 Baso % (Auto) 0.2 Immature Gran # (Auto) 0.03 H Neut # (Auto) 7.24 H Lymph # (Auto) 1.28 [place] # (Auto) 0.75 H Eos # (Auto) 0.04 Baso # (Auto) 0.02 Sodium 142 Potassium 4.1 Chloride 111 H Carbon Dioxide 29 Anion Gap 2.0 L BUN 8 Creatinine 0.85 Est Cr Clr Drug Dosing 98.4 Est GFR ( Amer) 109.8 Est GFR (Non-Af Amer) 94.7 BUN/Creatinine Ratio 9.2 L Glucose 106 H POC Glucose 73 Calcium 8.6 Phosphorus 2.3 L D Magnesium 2.0 01/19/20 01/19/20 05:39 16:47 WBC RBC Hgb Hct MCV MCH MCHC RDW Std Deviation RDW Coeff of Joey Plt Count MPV Immature Gran % (Auto) Neut % (Auto) Lymph % (Auto) [place] % (Auto) Eos % (Auto) Baso % (Auto) Immature Gran # (Auto) Neut # (Auto) Lymph # (Auto) [place] # (Auto) Eos # (Auto) Baso # (Auto) Sodium Potassium Chloride Carbon Dioxide Anion Gap BUN Creatinine Est Cr Clr Drug Dosing Est GFR ( Amer) Est GFR (Non-Af Amer) BUN/Creatinine Ratio Glucose POC Glucose 100 H 133 H Calcium Phosphorus Magnesium
[2020-01-19] MEDS: ARIPiprazole 15 MG TAB PO SCH (20:52)
[2020-01-19] MEDS: LITHIUM CARBONATE 300 MG TAB PO SCH (20:52)
[2020-01-20] MEDS: ALBUTEROL HFA 8 GM INHALER INH SCH ×4 (03:12→19:50)
[2020-01-20 05:05] LABS: Marijuana Quant, GCMS Urine 269 ng/mL (<5)
[2020-01-20] MEDS: ENOXAPARIN INJ 40 MG/0.4 ML SYR SQ SCH (08:11)
[2020-01-20] MEDS: VENLAFAXINE HCL XR 150 MG CAPXR PO SCH (08:12)
[2020-01-20] MEDS: LITHIUM CARBONATE 300 MG TAB PO SCH ×2 (08:12→19:52)
[2020-01-20] MEDS: levETIRAcetam 500 MG in 0.9 % SODIUM CHLORIDE 100 ML IV SCH ×2 (08:12→19:51)
[2020-01-20] MEDS ORDERED: ACETAMINOPHEN 500 MG TAB PO PRN (09:27)
[2020-01-20] MEDS ORDERED: INFLUENZA ADMINISTRATION CHARGE ONE (10:00)
[2020-01-20] MEDS ORDERED: INFLUENZA VIRUS QUAD VACCINE 0.5 ML SYR IM ONE (10:00)
--- NOTE | 2020-01-20 10:54 | Communication Note ---
Date of Service: January 20, 2020 Collateral information was obtained from patient's brother (Bean More - [phone]) by psychiatric nurse liaison. Brother stated patient has a long- standing history of mental health issues, though denies any recent concerns related to mood instability or safety issues. Brother states that he counted the patient's pills and was able to confirm that patient's presentation is not likely due to a medication overdose. Brother did confirm current psychiatric medication list - which does include fluvoxamine 100mg qHS. See psychiatric liaison's nursing note for additional information. No additional psychiatric recommendations at this time, pt was resumed on home psychiatric medication regimen - this provider added fluvoxamine 100mg qHS now that this medication has been confirmed.
[2020-01-20] MEDS: FAMOTIDINE 20 MG in SYRINGE 3 ML IV SCH (11:07)
--- NOTE | 2020-01-20 13:08 | Billing Data ---
Date of Service January 19, 2020 Coding Level of Care Code 76865 Subseq Hosp Care Lvl 3
--- NOTE | 2020-01-20 13:08 | Billing Data ---
Date of Service January 19, 2020 Coding Level of Care Code 59752 Subseq Hosp Care Lvl 3
--- NOTE | 2020-01-20 14:14 | Neurology Progress Note ---
Date of Service January 20, 2020 Assessment & Plan (1) Seizure-like activity: 1. LP- non contributory 2. increased Lactate 2.1 3. lithium level sub therapeutic 4. family for baseline 5. MRI- no acute findings 6. CTA head and neck no significant narrowing or occlusion 7. EEG- no focal seizure seen on EEG 8. psychiatry -for behavioral issues and direction of care 9. start depakote 500 mg XR twice daily check level in 5-6 days. can be monitored as outpatient and adjustment as needed. 10. PT/OT for discharge needs will sign off for now. follow up with neurology 4-6 weeks Jennifer Roblero [facility] schedule (2) Acute hypoxemic respiratory failure: (3) Bipolar disorder: (4) Lactic acidosis: (5) Aspiration pneumonia: Admission and Anticipated Discharge Date Admission Date: January 17, 2020 Supervising Physician Co-Signing Physician Notes I have seen and discussed above patient with Dr Mitch Montemayor, neurology I saw Mr. 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 Patient does recall taking this medication, does not recall any side effects, and I suspect it was on board for mood control or stabilization and indeed may add some benefit now when we reintroduce it. The importance is that it is unlikely to produce significant behavioral issues which the Keppra certainly can We will see him one more time tomorrow make sure he is tolerating the Depakote, and then will arrange for him to be seen in our office in follow-up in about 3 to 4 weeks with appropriate Depakote levels being done about a week after discharge. The Keppra will be stopped tomorrow after he receives sufficient doses of Depakote to ensure that a level will likely be obtained Mitch Montemayor MD Mason Iverson is a 59 year old male with PMH- bipolar disorder, narcissistic personality disorder, multiple prior episodes of overdoses with last admission in 2005 for overdose of Seroquel and prior overdoses of lithium and Tegretol who presents emergency department after becoming unresponsive when he was in the car with his brother, foaming at the mouth with no overt seizure-like activity reported but continued to be obtunded upon arrival by EMS. There were some fasciculations of his left lower leg for which she was given 2 mg of Ativan with improvement. HE was obtunded and unresponsive to painful stimulus in the ED. There is no response to corneal stimulus though there is report of a history of being blind. He was intubated for airway protection after okay with intubation from brother.There was a LP done also with ok from brother. He is doing well today. More attentive and talkative today. He states he was on Depakote in the past with no issues. no documentation to this effect. 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 denies CP, SOB, abdominal pain, one sided weakness, numbness tingling, N, V. Physical Exam Physical Exam: Gen: alert NAD lungs normal respiratory effort CV RRR strength hand inlayer silver biceps triceps bilaterally 5/5 LE lifts legs against gravity and resistance sensation intact to light touch skin: currently has abrasion on face which is bleeding (nursing advised) Results & Data ([facility]) Vital Signs (Past 12 Hours) Vital Signs Temp Pulse Pulse Resp BP Pulse Ox 01/20/20 11:35 36.6 C 72 18 137/86 92 01/20/20 07:31 67 01/20/20 07:10 36.7 C 67 18 127/79 90 01/20/20 03:36 37.3 C 69 18 119/66 93 Laboratory Results Abnormal lab results 01/17/20 01/19/20 01/19/20 Range/Units 21:05 16:47 20:23 POC Glucose 133 H 103 H (70-99) mg/dl U Marijuana THC Carboxy 269 H (<5) ng/mL 01/20/20 Range/Units 07:29 POC Glucose 112 H (70-99) mg/dl U Marijuana THC Carboxy (<5) ng/mL Diagnostic Findings no new imaging
[2020-01-20] MEDS ORDERED: DIVALPROEX EXTENDED RELEASE 500 MG TAB PO ONE (14:46)
[2020-01-20] MEDS: DIVALPROEX EXTENDED RELEASE 500 MG TAB PO SCH (19:51)
[2020-01-20] MEDS: ARIPiprazole 15 MG TAB PO SCH (19:51)
[2020-01-20] MEDS ORDERED: FLUVOXAMINE MALEATE 50 MG TAB PO SCH (21:00)
--- NOTE | 2020-01-20 21:30 | Hospitalist Progress Note ---
Date of Service January 20, 2020 Assessment & Plan (1) Seizures: Presented with seizure activity. No acute findings on MRI. EEG did not show any epileptogenic foci. Neurology consulted. Received levetiracetam. LP performed 01/17. WBCs-0 RBCs-113 Glucose-93 Total protein-54 VDRL-nonreactive Cryptococcal, CMV, H influenza, HSV, Listeria, varicella-zoster, enterovirus, Neisseria meningitidis, and other organisms not detected per [employer] PCR assay. No further seizure activity. Neurology and Psychiatry recommend transition to divalproex sodium extended release 500 mg twice daily. (2) DVT prophylaxis: Receiving enoxaparin. (3) Discharge planning issues: Case Management assisting with discharge planning. Apparently his mother is the usual florist and is ill herself. It appears that patient's brother will be able to assist in his care. Family Medicine follow-up with Dr. Vinita Vidales. Admission and Anticipated Discharge Date Admission Date: January 17, 2020 Subjective Recheck for seizure. Patient seen in their room around 1550. Doing well. No further seizure activity. Review of Systems: Constitutional- no fever. Cardiac- no chest pain. Pulmonary- no cough or SOB. GI- no nausea, vomiting, diarrhea, melena, hematochezia. - no urinary symptoms. Otherwise, as noted above. Physical Exam Constitutional: no acute distress Respiratory: no respiratory distress Auscultation: lungs clear to au scultation bilaterally Cardiovascular: Rate/Rhythm: regular rate and regular rhythm Heart Sounds: no gallop Vessels: no JVD Extremities: no calf tenderness and no edema Gastrointestinal (Abdomen): normal bowel sounds, soft, nontender, no hepatosplenomegaly Skin: no rashes, warm and dry Psychiatric: Orientation: alert Results & Data ([facility]) Vital Signs (Past 12 Hours) Vital Signs Temp Pulse Pulse Resp BP Pulse Ox 01/20/20 19:05 36.8 C 52 L 18 144/79 H 96 01/20/20 16:00 96 H 01/20/20 15:18 36.5 C 65 18 130/80 93 01/20/20 11:35 36.6 C 72 18 137/86 92 Laboratory Results 01/19/20 05:37 01/19/20 05:37
[2020-01-21] MEDS: ALBUTEROL HFA 8 GM INHALER INH SCH ×3 (01:01→12:28)
[2020-01-21 04:45] LABS: Lyme DNA PCR CSF or Synovial Not detected (Not Detected); Lyme DNA Source CSF
[2020-01-21] MEDS: DIVALPROEX EXTENDED RELEASE 500 MG TAB PO SCH (07:45)
[2020-01-21] MEDS: VENLAFAXINE HCL XR 150 MG CAPXR PO SCH (07:45)
[2020-01-21] MEDS: LITHIUM CARBONATE 300 MG TAB PO SCH (07:45)
[2020-01-21] MEDS: ENOXAPARIN INJ 40 MG/0.4 ML SYR SQ SCH (07:46)
[2020-01-21] MEDS: levETIRAcetam 500 MG in 0.9 % SODIUM CHLORIDE 100 ML IV SCH (09:17)
--- NOTE | 2020-01-21 13:32 | Hospitalist Progress Note ---
Date of Service January 21, 2020 Assessment & Plan (1) Seizures: Presented with seizure activity. No acute findings on MRI. EEG did not show any epileptogenic foci. Neurology consulted. Received levetiracetam. LP performed 01/17. WBCs-0 RBCs-113 Glucose-93 Total protein-54 VDRL-nonreactive Cryptococcal, CMV, H influenza, HSV, Listeria, varicella-zoster, enterovirus, Neisseria meningitidis, and other organisms not detected per [employer] PCR assay. No further seizure activity. Neurology and Psychiatry recommend transition to divalproex sodium extended release 500 mg twice daily. Will need valproic acid level drawn next week. (2) DVT prophylaxis: Receiving enoxaparin. (3) Discharge planning issues: Discharge to home. Family Medicine follow-up with Dr. Vinita Vidales. Admission and Anticipated Discharge Date Admission Date: January 17, 2020 Subjective Doing well. No further seizure activity. Ready to go home. Physical Exam Constitutional: no acute distress Respiratory: no respiratory distress Auscultation: lungs clear to auscultation bilaterally Cardiovascular: Rate/Rhythm: regular rate and regular rhythm Heart Sounds: no gallop Vessels: no JVD Extremities: no calf tenderness and no edema Gastrointestinal (Abdomen): normal bowel sounds, soft, nontender, no hepatosplenomegaly Skin: no rashes, warm and dry Psychiatric: Orientation: alert Results & Data ([facility]) Vital Signs (Past 12 Hours) Vital Signs Temp Pulse Pulse Resp BP Pulse Ox 01/21/20 11:15 36.7 C 62 18 123/71 97 01/21/20 07:29 64 01/21/20 07:05 36.4 C L 60 18 130/75 96 01/21/20 03:27 36.8 C 60 19 136/77 94
--- NOTE | 2020-01-21 14:48 | Communication Note ---
Date of Service: January 21, 2020 I saw Kishor today and I am impressed with how much better he is. He is alert conversant moves his extremities well still looks a little bradykinetic at times and is cortically blind but his memory function seems to be better each day he can tell me when he last saw the psychiatrist [facility] [place] and recalls some of his medications, can talk about his living situation knows about his mother's illness etc. He will be discharged on Depakote 500 mg of the extended release twice a day and will get a level in about 10 days time and see us in follow-up in about 6 to 8 weeks or whenever the current restrictions for return visits due to the coronavirus permit him to do so Diagnosis is a seizure possibly due to toxic metabolic effects or inadvertent drug withdrawal but very likely simply idiopathic we are finding no underlying structural cause EEG shows only mild generalized slowing without any clear-cut potentially epileptogenic patterns and I think treatment certainly indicated but not with Keppra which runs the risk of increasing his irritability and depression but with the Depakote which may actually serve as a mood stabilizer to some degree or at least help with mood stabilization in his particular case Arrangements for follow-up and lab analysis of Depakote are being made Mitch Montemayor MD
--- NOTE | 2020-01-24 20:57 | Discharge Summary ---
Date of Service Date of Admission: 01/17/20 Date of Discharge: 01/21/20 Admission HPI Per Admitting Provider History obtained from ER provider, family, and records. Unable to obtain history from patient secondary to intubated state. Medical history significant for mood disorder, personality disorder, COPD, past tobacco abuse, history anoxic brain damage as per records. Remote confinement June 04 to July 24, 2006 for anoxic encephalopathy secondary to outpatient cardiopulmonary arrest secondary to polysubstance overdose sp ROSC sp intubation. Possible seizure activity noted during confinement. Patient discharged on Depakote. Patient discharged to rehab. Since rehab discharge, patient has been living with mother due to inability to care for self. Patient ran out of Depakote prescription 2010 as per records. Patient seen by [facility] outpatient last July 2018 for one-time episode of handshaking/spells of trembling. Outpatient MRI showed mild to moderate global volume loss with chronic microvascular changes. Occipital lobe findings related to remote insult. EEG showed abnormal awake and drowsy activity due to intermittent generalized slowing suggestive of mild nonspecific encephalopathy. No evidence of focal slowing or epileptiform activity. ER consultation recommended for recurrence of trembling episodes as per records. Patient's mother (primary caregiver) has not been doing well the last few months due to lung cancer. Patient not eating as much as per recent outpatient PCP visit last month. Self-limiting emesis episode 2 weeks ago as per records. Patient noted by brother to have decreased responsiveness in the car a few hours ago. Some head shaking along with left leg shaking movement. Episode lasting about a few minutes as per brother. Subsequent foaming in the mouth noted. Noisy respiration noted by brother. No tongue biting, urinary incontinence as per brother. Patient brother unaware of suicidal intent. EMS called by brother for decreased responsiveness. Upon arrival at the ER, patient intubated for decreased responsiveness. Given Zosyn in the ER for possible aspiration pneumonia. Principal Diagnosis seizure Discharge Data Allergies Allergy/AdvReac Type Severity Reaction Status Date / Time No Known Allergies Allergy Unknown Verified 01/17/20 22:34 Consultations 01/17/20 21:23 ED Decision to Admit Stat 01/18/20 01:49 Consult Case Management - Discharge Planning Routine Consult Standards Analyst Routine Consult Neurology Routine 01/19/20 12:51 Consult Psychiatry Routine Ordered Studies 01/17/20 20:18 CT head/brain wo con Stat 01/17/20 20:30 CT angio head w con Stat CT angio neck with con Stat 01/18/20 02:00 MR brain wo con Urgent Hospital Course (1) Seizures: Presented with seizure activity. No acute findings on MRI. EEG did not show any epileptogenic foci. Neurology consulted. Received levetiracetam. LP performed 01/17. WBCs-0 RBCs-113 Glucose-93 Total protein-54 VDRL-nonreactive Cryptococcal, CMV, H influenza, HSV, Listeria, varicella-zoster, enterovirus, Neisseria meningitidis, and other organisms not detected per [employer] PCR assay. No further seizure activity. Neurology and Psychiatry recommend transition to divalproex sodium extended release 500 mg twice daily. Will need valproic acid level drawn next week. (2) DVT prophylaxis: Receiving enoxaparin. (3) Discharge planning issues: Discharged to home. Family Medicine follow-up with Dr. Vinita Vidales. Total Time Total Time Spent Total Time Spent (In Minutes): 30 Discharge Plan Discharge Items Patient Disposition: Home - Home Health Services Reason For Visit: seizure Discharge Diagnosis: seizure Condition on Discharge: Good Activity: Resume your previous activity Driving/Machine Use: no driving Non-emergency contact: Primary Care Provider, Hospitalist and Neurologist Call non-emergency contact if: you have any medication questions, your symptoms worsen and your temperature is above 101 Follow-up/Referrals: Vinita Vidales DO [Primary Care Provider] - 01/25/20 10:55 am (01/25/2020 at 11:10 AM with Vinita Vidales DO ) Diet: Regular Addtl Attending Provider Instructions: MEDICATION CHANGES: divalproex sodium (Depakote XR) 500 mg twice a day for seizures RECOMMENDATIONS FOR FOLLOW-UP: Please ask Dr. Vidales to: (1) check Depakote level (2) make referral for Neurology follow-up with Jennifer Roblero PA-C OTHER INSTRUCTIONS: Seek medical attention if you have: * temperature above 101 * chest pain or trouble breathing * abdominal pain, nausea, vomiting * diarrhea, dark stools or bloody stools * any unanswered questions or concerns Call 911 if symptoms are severe. Please take good care of yourself. Call if you have any questions or problems. You can reach a [facility] hospitalist on duty at [facility] 24 hours a day by calling [phone]. My cell # is [phone]. Pending Studies at Discharge: No Stand-Alone Forms: My [facility], Smoking Cessation Medications and DC Order Prescriptions: New divalproex 500 mg Tablet Extended Release 24 Hr 500 mg PO BID Qty: 60 RF: 5 Continued lithium carbonate 300 mg capsule 600 mg PO HS RF: 0 lithium carbonate 300 mg capsule 300 mg PO QAM RF: 0 fluvoxamine 100 mg tablet 100 mg PO HS RF: 0 ketoconazole 2 % cream 1 applic TOPICAL UD RF: 0 aripiprazole 15 mg tablet 15 mg PO HS RF: 0 Q-Pap 650 mg PO UD PRN (Reason: HEADACHE/PAIN) RF: 0 venlafaxine 150 mg capsule,extended release 24hr 150 mg PO QAM RF: 0 Discharge Orders: Discharge Order (Routine); Ordered 01/21/20 Ordered By: Mitch Ornelas Admission Data Admit Date/Time: 01/17/20 23:02 Attending Provider: Mitch Ornelas Admit Provider: Chris Henry Primary Care Provider: Vinita Vidales Other Providers: [facility] ; Chris Henry ; Barney Pimentel ; Mitch Montemayor ; Sanjay Joy ; Cami Ruiz ; Alessandro Babcock ; Sami Alvarado ; Kirby Dorado ; Jenny Brito ; Kishor Irby ; Venecia Rosales ; Tyra Kim ; Phylicia Childress ; Hoa Luis ; Kelby Subramanian I. ; Makeda Almanza ; Tuyet Foy ; Roselyn Nunes ; Adolfo Bowles ; Kevin Navarro Other Interventions: Discharge Summary Assessment (RN) Last Done: 01/21/20 15:21 DC Date/Time DO NOT enter until pt leaves facility: 01/21/20 16:22
== END 2020-01-21 16:22 | disposition home health service (06) | DRG 208 ==
LOC: ED 20:04 → SUATTDRO 23:02 → 1E 23:02 → 2W 01-19 13:27

== ENCOUNTER 2021-11-04 11:20 | Inpatient (IN) ==
--- NOTE | 2021-11-04 12:23 | Emergency Department Note ---
ED Provider Note NAME: IGNACIO ELLISON AGE: 61 SEX: M : 1960 ARRIVES VIA: Ambulance INFORMANT: Patient ED PROVIDER(S): Aguilar Huston DO CHIEF COMPLAINT: overdose HPI: Patient is a 61-year-old male with past medical history of seizures and bipolar disorder that presents the ER following an overdose. He notes that it was not intentional. He took Depakote and Abilify. He believes he took 4 tabs of 500 mg of Depakote. He took 2 tabs of Abilify. Patient denies any headache or change in vision. No chest pain or shortness of breath. No nausea vomiting or diarrhea. No dysuria urgency or frequency. ROS: See above HPI for pertinent positives & negatives. A total of 10 systems reviewed and were otherwise negative. PAST MEDICAL HISTORY:See Below PAST SURGICAL HISTORY:See Below FAMILY HISTORY:See Below SOCIAL HISTORY:See Below HOME MEDICATIONS:See Below ALLERGIES:See Below VITALS:See Below PHYSICAL EXAMINATION: GENERAL: Sitting up in bed, alert, well appearing, well nourished, no distress, non-toxic EYE EXAM: normal conjunctiva. PERRL and EOM's grossly intact. OROPHARYNX: no exudate, no erythema, lips, buccal mucosa, and tongue normal and mucous membranes are moist NECK: supple, no nuchal rigidity, no adenopathy, non-tender LUNGS: Clear to auscultation. Normal chest wall mechanics HEART: no murmurs, S1 normal and S2 normal ABDOMEN: abdomen soft, non-tender, normo-active bowel sounds, no masses, no rebound or guarding. UPPER EXTREMITIES: upper extremities are grossly normal. LOWER EXTREMITIES: No pitting edema. NEURO EXAM: Normal sensorium, cranial nerves II-XII grossly intact, normal speech, no gross weakness of arms, no gross weakness of legs. MEDICAL DECISION MAKING: [Provider summary] Triage Nursing notes reviewed. Limited review of prior medical records performed Vital Signs: reviewed and remarkable for hypoxic Differential diagnosis: Differential diagnoses includes but is not limited to pneumonia, bronchitis, COPD/Asthma exacerbation, pneumothorax, pulmonary embolism, congestive heart failure, acute coronary syndrome ER treatment provided: See below Diagnostics interpreted by me: ECG: Sinus rhythm rate 96 Normal axis No PVCs QTC 414 Incomplete right bundle Cardiac Monitoring: An order was placed for continuous cardiac monitoring. The monitor shows a rate of 92 with sinus rhythm. Laboratory studies: As stated above and show below. Imaging studies: [See below] Consultation(s): [none] Procedures: [none] [PDMP:reviewed and no issues] Critical Care: [None] Past Med/Surg History Medical History (Updated 10/08/20 @ 00:02 by Leodan Arana) Bipolar disorder History of repeated overdose Social History Smoking Status: Former smoker Preferred Language: Hebrew Communication Ability: Impaired Current Living Situation: Family Feels Safe at Home: Yes Assistive Devices: None Allergies Allergies Allergy/AdvReac Type Severity Reaction Status Date / Time No Known Allergies Allergy Unknown Verified 09/23/20 01:52 Home Meds Home Medications Medication Instructions Recorded Confirmed aripiprazole 15 mg tablet 15 mg PO QAM 01/17/20 09/23/20 divalproex 500 mg tablet,extended 500 mg PO QAM 09/23/20 09/23/20 release 24 hr docusate sodium 100 mg tablet 100 mg PO QAM 09/23/20 09/23/20 (Stool Softener) Previous Rx's Medication Instructions Recorded oxycodone 5 mg tablet 5 mg PO Q8H PRN #14 tab 09/23/20 Results & Data (ED) Vital Signs Vital Signs - 24 hr 11/04/21 11:43 11/04/21 11:45 11/04/21 11:46 Temperature 36.8 C Temperature Source Oral Pulse Rate 94 H 93 H Pulse Rate [Apical] 95 H Pulse Rhythm Regular Respiratory Rate 20 20 Respiratory Effort / Characteristics Non-Labored Spontaneous Respiratory Depth Normal Respiratory Pattern Regular Blood Pressure 116/65 Blood Pressure [Right Arm] 116/65 Blood Pressure Mean 82 Blood Pressure Mean [Right Arm] 82 Pulse Oximetry 90 92 92 Oxygen Delivery Method Nasal Cannula Nasal Cannula Nasal Cannula Oxygen Flow Rate 2 3 3 Sepsis Recent Fever Within 48 Hours No Sepsis New/Unexplained Change in Mental Status No Sepsis Action Taken by Nursing No Action Required Oxygen Flow Rate - Titration 3 Pulse Oximetry Post Tiitration 91 11/04/21 12:18 Temperature Temperature Source Pulse Rate Pulse Rate [Apical] Pulse Rhythm Respiratory Rate Respiratory Effort / Characteristics Respiratory Depth Respiratory Pattern Blood Pressure Blood Pressure [Right Arm] Blood Pressure Mean Blood Pressure Mean [Right Arm] Pulse Oximetry 89 L Oxygen Delivery Method Nasal Cannula Oxygen Flow Rate 3 Sepsis Recent Fever Within 48 Hours Sepsis New/Unexplained Change in Mental Status Sepsis Action Taken by Nursing Oxygen Flow Rate - Titration 4 Pulse Oximetry Post Tiitration 92 Discharge Plan Visit Data Chief Complaint: Overdose (Intentional) ED Provider: Aguilar Huston Forms Stand Alone Forms: My [facility], Suicide Prevention Resources Prescriptions Prescriptions: No Action aripiprazole 15 mg tablet 15 mg PO QAM RF: 0 divalproex 500 mg tablet extended release 24 hr 500 mg PO QAM RF: 0 docusate sodium [Stool Softener] 100 mg Tablet 100 mg PO QAM RF: 0 oxycodone 5 mg tablet 5 mg PO Q8H PRN (Reason: pain) Qty: 14 RF: 0 Referrals Referrals: Vinita Vidales DO [Primary Care Provider] -
--- NOTE | 2021-11-04 12:34 | XRay Report ---
XR chest 1V portable HISTORY: 61 years-old Male sob acute shortness of breath COMPARISON: Chest CT 09/23/2020, chest radiograph 01/17/2020 TECHNIQUE: Portable AP view of the chest FINDINGS: Cardiac silhouette is mildly enlarged. Emphysema with chronic interstitial coarsening. No pneumothora x or large pleural effusion. Ill-defined patchy bilateral airspace opacities are new from prior. Dege nerative changes of the shoulders and spine. IMPRESSION: 1. Patchy bilateral airspace opacities are suspicious for multifocal pneumonia. 2. Emphysema with chronic interstitial coarsening. ACT 112: Negative or not required by law. The above report was generated using voice recognition software. It may contain grammatical, syntax o r spelling errors. Electronically signed by: Rikki Diaz M.D. 11/04/2021 12:33 PM
[2021-11-04 13:25] LABS: Influenza A virus by PCR Negative (Neg); Influenza B virus by PCR Negative (Neg); RSV by PCR Negative (Neg)
[2021-11-04 13:25] LABS: D Dimer 1640 ug/L FEU (0-500)
[2021-11-04 13:33] LABS: Alanine Aminotransferase 35 (12-78); Albumin Level 2.6 gm/dl (3.4-5.0); Aspartate Aminotransferase 56 U/L (15-37); BUN Creatinine Ratio 17.3 (10-20); Blood Urea Nitrogen 14 mg/dl (7-18); Calcium 8.4 mg/dl (8.5-10.1); Carbon Dioxide 24 mmol/L (21-32); Chloride 105 mmol/L (98-107); Creatinine Clr Calc Pharmacy 84.3 ml/min; Est GFR (African American) 109.8 ml/min; Est GFR (Non-African American) 94.8 ml/min; Glucose 120 mg/dl (70-99); Potassium 3.9 mmol/L (3.5-5.1); Sodium 134 mmol/L (136-145)
[2021-11-04 13:35] LABS: SARS CoV2 RNA(COVID-19) InHosp POSITIVE (Negative)
[2021-11-04 13:41] LABS: Acetaminophen < 2 ug/ml (10-30); Salicylate < 1.7 mg/dl (2.8-20); Valproic Acid 25 mcg/ml (50-100)
[2021-11-04 13:42] LABS: Hematocrit (blood only) 36.6 % (42-52); Hemoglobin 12.8 g/dL (14.0-18.0); Mean Corpuscular Hemoglobin 32.8 pg (25-34); Mean Corpuscular Volume 93.8 fL (80-100); Mean Platelet Volume 10.4 fL (7.4-10.4); Platelet Count 85 K/uL (130-400); RDW Coefficient of Variation 12.7 % (11.5-14.5); RDW Standard Deviation 43.9 fL (36.4-46.3); White Blood Count 1.95 K/uL (4.8-10.8)
[2021-11-04 13:43] LABS: Albumin Globulin Ratio 0.7 (0.9-2); Alkaline Phosphatase 45 U/L (45-117); Basophils # (auto) 0.01 K/uL (0-0.2); Basophils % (auto) 0.5 %; Bilirubin,Total 0.3 mg/dl (0.2-1); Globulin 3.6 gm/dl (2.5-4.0); Immature Granulocytes # (auto) 0.02 K/uL (0.00-0.02); Lymphocytes # (auto) 0.45 K/uL (1.2-3.4); Lymphocytes % (auto) 23.1 %; Monocytes # (auto) 0.28 K/uL (0.11-0.59); Monocytes % (auto) 14.4 %; Neutrophils # (auto) 1.19 K/uL (1.4-6.5); Platelet Estimate Decreased (Normal); Thyroid Stimulating Hormone 0.477 uIu/ml (0.300-4.500); Total Protein 6.2 gm/dl (6.4-8.2); Troponin I < 0.015 ng/ml (0-0.045)
[2021-11-04] MEDS ORDERED: dexAMETHasone 6 MG in SYRINGE 0 ML IV ONE (13:54)
[2021-11-04] MEDS ORDERED: DEXAMETHASONE SOD INJ 4 MG/ML VIAL ONE (14:10)
--- NOTE | 2021-11-04 16:52 | Emergency Department Note ---
Impression & Plan Pneumonia due to 2019 novel coronavirus, Drug overdose, Respiratory failure ED Provider Note NAME: IGNACIO ELLISON AGE: 61 SEX: M : 1960 ARRIVES VIA: Ambulance INFORMANT: Patient ED PROVIDER(S): Aguilar Huston DO CHIEF COMPLAINT: Accidental overdose HPI: Patient is a 61-year-old male who was having disagreement with his brother. He has terrible vision and forgot to take his medications yesterday. He doubled up and took yesterday medications in combination with today. He denies any suicidal or homicidal ideations. No auditory visual hallucinations. He admits to some upper respiratory symptoms. His brother is also sick. He denies any chest pain or shortness of breath. No previous need for oxygen. No belly pain nausea vomiting or diarrhea. No dysuria urgency or frequency. No other exacerbating or remitting factors. He took a total of 4 tabs of the 500 mg Depakote and took 2 of his Abilify. Poison control was notified prehospital. ROS: See above HPI for pertinent positives & negatives. A total of 10 systems re viewed and were otherwise negative. PAST MEDICAL HISTORY:See Below PAST SURGICAL HISTORY:See Below FAMILY HISTORY:See Below SOCIAL HISTORY:See Below HOME MEDICATIONS:See Below ALLERGIES:See Below VITALS:See Below PHYSICAL EXAMINATION: GENERAL: Sitting up in bed, alert, well appearing, well nourished, no distress, non-toxic EYE EXAM: normal conjunctiva. OROPHARYNX: no exudate, no erythema, lips, buccal mucosa, and tongue normal and mucous membranes are moist NECK: supple, no nuchal rigidity, no adenopathy, non-tender LUNGS: Clear to auscultation. Normal chest wall mechanics HEART: no murmurs, S1 normal and S2 normal ABDOMEN: abdomen soft, non-tender, normo-active bowel sounds, no masses, no rebound or guarding. BACK: Back is symmetrical on inspection and there is no deformity, no midline tenderness, no CVA tenderness. SKIN: no rashes and no bruising UPPER EXTREMITIES: upper extremities are grossly normal. LOWER EXTREMITIES: No pitting edema. Calves are equal bilateral NEURO EXAM: Normal sensorium, cranial nerves II-XII grossly intact, normal speech, no gross weakness of arms, no gross weakness of legs. MEDICAL DECISION MAKING: Patient is a 61-year-old male who presents the ER for above-stated complaint. IV was established blood work was obtained. Labs show leukopenia 1.9. No significant anemia. Platelets were low at 85. BMP with LFTs bilirubin and troponin was negative. D-dimer was elevated. Covid was positive which would explain the positive dimer and the hypoxia. Patient does not complain of any chest pain or shortness of breath. Alcohol was negative. Valproic was only 25. Chest x-ray with bilateral infiltrates. Do favor this explains the hypoxia. He was updated bedside. He denies any suicidal homicidal ideations. Patient was placed on nasal cannula and remained on 4 L. He was given Decadron and fluids. He was updated bedside and discussed with the hospitalist admitted for Covid hypoxic pneumonia. Triage Nursing notes reviewed. Limited review of prior medical records performed Vital Signs: reviewed and remarkable for no significant abnormalities Differential diagnosis: Differential diagnoses includes but is not limited to pneumonia, bronchitis, COPD/Asthma exacerbation, pneumothorax, pulmonary embolism, congestive heart failure, acute coronary syndrome ER treatment provided: See below Diagnostics interpreted by me: ECG: Sinus rhythm rate of 96 Normal axis No PVCs QTC 414 Cardiac Monitoring: An order was placed for continuous cardiac monitoring. The monitor shows a rate of 92 with sinus rhythm. Laboratory studies: As stated above and show below. Imaging studies: Portable AP upright 1 view of the chest shows bilateral infiltrates Consultation(s): Discussed with hospitalist for further evaluation and admission Procedures: none Critical Care: I have personally spent 32 minutes of critical care time in the direct management of this patient. This includes bedside care, interpretation of diagnostic studies, and testing, discussion with consultants, patient, and family members, and other required patient management activities. This 32 minutes is in excess of all separately billable procedures. Past Med/Surg History Medical History (Updated 11/04/21 @ 18:27 by Aguilar Huston DO) Bipolar disorder History of repeated overdose Social History Smoking Status: Former smoker Preferred Language: Malian Communication Ability: Impaired Current Living Situation: Family Feels Safe at Home: Yes Assistive Devices: None Allergies Allergies Allergy/AdvReac Type Severity Reaction Status Date / Time No Known Allergies Allergy Unknown Verified 11/04/21 15:54 Home Meds Home Medications Medication Instructions Recorded Confirmed aripiprazole 15 mg tablet 15 mg PO QAM 01/17/20 11/04/21 divalproex 500 mg tablet,extended 500 mg PO QAM 09/23/20 11/04/21 release 24 hr Results & Data (ED) Vital Signs Vital Signs - 24 hr 11/04/21 11:38 11/04/21 11:43 11/04/21 11:45 Temperature 36.8 C Temperature Source Oral Pulse Rate 95 H 94 H 93 H Pulse Rate [Apical] 95 H Pulse Rate from SpO2 Sensor 96 H Pulse Rhythm Regular Pulse Rhythm [Apical] Pulse Strength [Apical] Respiratory Rate 20 20 20 Respiratory Effort / Characteristics Non-Labored Spontaneous Respiratory Depth Normal Respiratory Pattern Regular Blood Pressure 116/65 Blood Pressure [Right Arm] 116/65 Blood Pressure Mean 82 Blood Pressure Mean [Right Arm] 82 Blood Pressure Position [Right Arm] Pulse Oximetry 89 L 90 92 Oxygen Delivery Method Nasal Cannula Nasal Cannula Oxygen Flow Rate 2 3 Sepsis Recent Fever Within 48 Hours No Sepsis New/Unexplained Change in Mental Status No Sepsis Action Taken by Nursing No Action Required Oxygen Flow Rate - Titration 3 Pulse Oximetry Post Tiitration 91 11/04/21 11:46 11/04/21 12:00 11/04/21 12:18 Temperature Temperature Source Pulse Rate 94 H Pulse Rate [Apical] Pulse Rate from SpO2 Sensor 94 H Pulse Rhythm Pulse Rhythm [Apical] Pulse Strength [Apical] Respiratory Rate 19 Respiratory Effort / Characteristics Respiratory Depth Respiratory Pattern Blood Pressure 96/66 L Blood Pressure [Right Arm] Blood Pressure Mean 76 Blood Pressure Mean [Right Arm] Blood Pressure Position [Right Arm] Pulse Oximetry 92 90 89 L Oxygen Delivery Method Nasal Cannula Nasal Cannula Nasal Cannula Oxygen Flow Rate 3 4 3 Sepsis Recent Fever Within 48 Hours Sepsis New/Unexplained Change in Mental Status Sepsis Action Taken by Nursing Oxygen Flow Rate - Titration 4 Pulse Oximetry Post Tiitration 92 11/04/21 12:30 11/04/21 13:02 11/04/21 13:30 Temperature Temperature Source Pulse Rate 92 H 93 H 89 Pulse Rate [Apical] Pulse Rate from SpO2 Sensor 93 H 92 H 88 Pulse Rhythm Pulse Rhythm [Apical] Pulse Strength [Apical] Respiratory Rate 21 23 18 Respiratory Effort / Characteristics Respiratory Depth Respiratory Pattern Blood Pressure 109/78 113/68 109/64 Blood Pressure [Right Arm] Blood Pressure Mean 88 83 79 Blood Pressure Mean [Right Arm] Blood Pressure Position [Right Arm] Pulse Oximetry 92 93 90 Oxygen Delivery Method Nasal Cannula Nasal Cannula Nasal Cannula Oxygen Flow Rate 4 4 4 Sepsis Recent Fever Within 48 Hours Sepsis New/Unexplained Change in Mental Status Sepsis Action Taken by Nursing Oxygen Flow Rate - Titration Pulse Oximetry Post Tiitration 11/04/21 13:40 11/04/21 14:00 11/04/21 14:30 Temperature Temperature Source Pulse Rate 88 89 Pulse Rate [Apical] 87 Pulse Rate from SpO2 Sensor 87 91 H Pulse Rhythm Pulse Rhythm [Apical] Regular Pulse Strength [Apical] Normal Respiratory Rate 20 22 18 Respiratory Effort / Characteristics Non-Labored Spontaneous Respiratory Depth Normal Respiratory Pattern Regular Blood Pressure 111/70 Blood Pressure [Right Arm] 109/64 Blood Pressure Mean 83 Blood Pressure Mean [Right Arm] 79 Blood Pressure Position [Right Arm] Sitting Pulse Oximetry 92 94 Oxygen Delivery Method Nasal Cannula Nasal Cannula Oxygen Flow Rate 4 4 Sepsis Recent Fever Within 48 Hours Sepsis New/Unexplained Change in Mental Status Sepsis Action Taken by Nursing Oxygen Flow Rate - Titration Pulse Oximetry Post Tiitration 11/04/21 14:31 11/04/21 15:46 11/04/21 17:24 Temperature Temperature Source Pulse Rate 87 Pulse Rate [Apical] 92 H 82 Pulse Rate from SpO2 Sensor 92 H Pulse Rhythm Pulse Rhythm [Apical] Pulse Strength [Apical] Respiratory Rate 20 18 18 Respiratory Effort / Characteristics Respiratory Depth Respiratory Pattern Blood Pressure 121/61 Blood Pressure [Right Arm] 108/70 107/59 L Blood Pressure Mean 81 Blood Pressure Mean [Right Arm] 82 75 Blood Pressure Position [Right Arm] Pulse Oximetry 93 93 91 Oxygen Delivery Method Nasal Cannula Oxymask Oxymask Oxygen Flow Rate 4 5 5 Sepsis Recent Fever Within 48 Hours Sepsis New/Unexplained Change in Mental Status Sepsis Action Taken by Nursing Oxygen Flow Rate - Titration Pulse Oximetry Post Tiitration Laboratory Data Result diagrams: 11/04/21 12:58 11/04/21 12:58 Lab Results 11/04/21 11/04/21 11/04/21 Range/Units 12:27 12:58 12:58 WBC 1.95 L (4.8-10.8) K/uL RBC 3.90 L (4.7-6.1) M/uL Hgb 12.8 L (14.0-18.0) g/dL Hct 36.6 L (42-52) % MCV 93.8 (80-100) fL MCH 32.8 (25-34) pg MCHC 35.0 (32-36) g/dL RDW Std Deviation 43.9 (36.4-46.3) fL RDW Coeff of Joey 12.7 (11.5-14.5) % Plt Count 85 L (130-400) K/uL MPV 10.4 (7.4-10.4) fL Immature Gran % (Auto) 1.0 % Neut % (Auto) 61.0 % Lymph % (Auto) 23.1 % [place] % (Auto) 14.4 % Eos % (Auto) 0.0 % Baso % (Auto) 0.5 % Neut # (Auto) 1.19 L (1.4-6.5) K/uL Lymph # (Auto) 0.45 L (1.2-3.4) K/uL [place] # (Auto) 0.28 (0.11-0.59) K/uL Eos # (Auto) 0.00 (0-0.5) K/uL Baso # (Auto) 0.01 (0-0.2) K/uL Immature Gran # (Auto) 0.02 (0.00-0.02) K/uL Hyposegmented Neuts 1+ Platelet Estimate Decreased L (Normal) D-Dimer (0-500) ug/L FEU Sodium 134 L (136-145) mmol/L Potassium 3.9 (3.5-5.1) mmol/L Chloride 105 (98-107) mmol/L Carbon Dioxide 24 (21-32) mmol/L Anion Gap 5.0 (3-11) BUN 14 (7-18) mg/dl Creatinine 0.82 (0.6-1.4) mg/dl Est Cr Clr Drug Dosing 84.3 ml/min Est GFR ( Amer) 109.8 ml/min Est GFR (Non-Af Amer) 94.8 ml/min BUN/Creatinine Ratio 17.3 (10-20) Glucose 120 H (70-99) mg/dl Calcium 8.4 L (8.5-10.1) mg/dl Total Bilirubin 0.3 (0.2-1) mg/dl AST 56 H (15-37) U/L ALT 35 (12-78) Alkaline Phosphatase 45 (45-117) U/L Troponin I < 0.015 (0-0.045) ng/ml Total Protein 6.2 L (6.4-8.2) gm/dl Albumin 2.6 L (3.4-5.0) gm/dl Globulin 3.6 (2.5-4.0) gm/dl Albumin/Globulin Ratio 0.7 L (0.9-2) TSH 0.477 (0.300-4.500) uIu/ml Salicylates (2.8-20) mg/dl Acetaminophen (10-30) ug/ml Valproic Acid (50-100) mcg/ml Ethyl Alcohol mg/dL (0-3) mg/dl SARS-CoV-2 (PCR) POSITIVE A* (Negative) Influenza Type A (PCR) Negative (Neg) Influenza Type B (PCR) Negative (Neg) RSV (RT-PCR) Negative (Neg) 11/04/21 11/04/21 11/04/21 Range/Units 12:58 12:58 12:58 WBC (4.8-10.8) K/uL RBC (4.7-6.1) M/uL Hgb (14.0-18.0) g/dL Hct (42-52) % MCV (80-100) fL MCH (25-34) pg MCHC (32-36) g/dL RDW Std Deviation (36.4-46.3) fL RDW Coeff of Joey (11.5-14.5) % Plt Count (130-400) K/uL MPV (7.4-10.4) fL Immature Gran % (Auto) % Neut % (Auto) % Lymph % (Auto) % [place] % (Auto) % Eos % (Auto) % Baso % (Auto) % Neut # (Auto) (1.4-6.5) K/uL Lymph # (Auto) (1.2-3.4) K/uL [place] # (Auto) (0.11-0.59) K/uL Eos # (Auto) (0-0.5) K/uL Baso # (Auto) (0-0.2) K/uL Immature Gran # (Auto) (0.00-0.02) K/uL Hyposegmented Neuts Platelet Estimate (Normal) D-Dimer 1640 H* (0-500) ug/L FEU Sodium (136-145) mmol/L Potassium (3.5-5.1) mmol/L Chloride (98-107) mmol/L Carbon Dioxide (21-32) mmol/L Anion Gap (3-11) BUN (7-18) mg/dl Creatinine (0.6-1.4) mg/dl Est Cr Clr Drug Dosing ml/min Est GFR ( Amer) ml/min Est GFR (Non-Af Amer) ml/min BUN/Creatinine Ratio (10-20) Glucose (70-99) mg/dl Calcium (8.5-10.1) mg/dl Total Bilirubin (0.2-1) mg/dl AST (15-37) U/L ALT (12-78) Alkaline Phosphatase (45-117) U/L Troponin I (0-0.045) ng/ml Total Protein (6.4-8.2) gm/dl Albumin (3.4-5.0) gm/dl Globulin (2.5-4.0) gm/dl Albumin/Globulin Ratio (0.9-2) TSH (0.300-4.500) uIu/ml Salicylates < 1.7 L (2.8-20) mg/dl Acetaminophen < 2 L (10-30) ug/ml Valproic Acid 25 L (50-100) mcg/ml Ethyl Alcohol mg/dL < 3.0 (0-3) mg/dl SARS-CoV-2 (PCR) (Negative) Influenza Type A (PCR) (Neg) Influenza Type B (PCR) (Neg) RSV (RT-PCR) (Neg) 11/04/21 Range/Units 12:58 WBC (4.8-10.8) K/uL RBC (4.7-6.1) M/uL Hgb (14.0-18.0) g/dL Hct (42-52) % MCV (80-100) fL MCH (25-34) pg MCHC (32-36) g/dL RDW Std Deviation (36.4-46.3) fL RDW Coeff of Joey (11.5-14.5) % Plt Count (130-400) K/uL MPV (7.4-10.4) fL Immature Gran % (Auto) % Neut % (Auto) % Lymph % (Auto) % [place] % (Auto) % Eos % (Auto) % Baso % (Auto) % Neut # (Auto) (1.4-6.5) K/uL Lymph # (Auto) (1.2-3.4) K/uL [place] # (Auto) (0.11-0.59) K/uL Eos # (Auto) (0-0.5) K/uL Baso # (Auto) (0-0.2) K/uL Immature Gran # (Auto) (0.00-0.02) K/uL Hyposegmented Neuts Platelet Estimate (Normal) D-Dimer (0-500) ug/L FEU Sodium (136-145) mmol/L Potassium (3.5-5.1) mmol/L Chloride (98-107) mmol/L Carbon Dioxide (21-32) mmol/L Anion Gap (3-11) BUN (7-18) mg/dl Creatinine (0.6-1.4) mg/dl Est Cr Clr Drug Dosing ml/min Est GFR ( Amer) ml/min Est GFR (Non-Af Amer) ml/min BUN/Creatinine Ratio (10-20) Glucose (70-99) mg/dl Calcium (8.5-10.1) mg/dl Total Bilirubin (0.2-1) mg/dl AST (15-37) U/L ALT (12-78) Alkaline Phosphatase (45-117) U/L Troponin I Cancelled (0-0.045) ng/ml Total Protein (6.4-8.2) gm/dl Albumin (3.4-5.0) gm/dl Globulin (2.5-4.0) gm/dl Albumin/Globulin Ratio (0.9-2) TSH (0.300-4.500) uIu/ml Salicylates (2.8-20) mg/dl Acetaminophen (10-30) ug/ml Valproic Acid (50-100) mcg/ml Ethyl Alcohol mg/dL (0-3) mg/dl SARS-CoV-2 (PCR) (Negative) Influenza Type A (PCR) (Neg) Influenza Type B (PCR) (Neg) RSV (RT-PCR) (Neg) Administered Medications Discontinued Medications Dexamethasone (Dexamethasone Sod Inj 4 Mg/Ml Vial) Confirm Administered Dose 8 mg .ROUTE .[employer]-MED ONE Stop: 11/04/21 14:11 Last Admin: 11/04/21 14:17 Dose: 6 mg Documented by: [id number] Dexamethasone 6 mg/ Syringe 1.5 mls @ 1 mls/min IV ONE ONE Stop: 11/04/21 13:55 Last Admin: 11/04/21 14:17 Dose: Not Given Documented by: [id number] Imaging Data Radiologist's Impression: Chest X-Ray 11/04/21 12:20 XR chest 1V portable HISTORY: 61 years-old Male sob acute shortness of breath COMPARISON: Chest CT 09/23/2020, chest radiograph 01/17/2020 TECHNIQUE: Portable AP view of the chest FINDINGS: Cardiac silhouette is mildly enlarged. Emphysema with chronic interstitial coarsening. No pneumothorax or large pleural effusion. Ill-defined patchy bilateral airspace opacities are new from prior. Degenerative changes of the shoulders and spine. IMPRESSION: 1. Patchy bilateral airspace opacities are suspicious for multifocal pneumonia. 2. Emphysema with chronic interstitial coarsening. ACT 112: Negative or not required by law. The above report was generated using voice recognition software. It may contain grammatical, syntax or spelling errors. Electronically signed by: Rikki Diaz M.D. 11/04/2021 12:33 PM Discharge Plan Visit Data Chief Complaint: Overdose (Intentional) ED Provider: Aguilar Huston Discharge Problem: Pneumonia due to 2019 novel coronavirus, Drug overdose, Respiratory failure Discharge Instructions Interventions: ED Discharge Assessment Last Done: 11/04/21 18:14 Forms Stand Alone Forms: My [facility]s, Suicide Prevention Resources Prescriptions Prescriptions: No Action aripiprazole 15 mg tablet 15 mg PO QAM RF: 0 divalproex 500 mg tablet extended release 24 hr 500 mg PO QAM RF: 0 Referrals Referrals: Vinita Vidales DO [Primary Care Provider] -
--- NOTE | 2021-11-04 17:05 | History & Physical Report ---
Date of Service November 04, 2021 Assessment & Plan (1) Drug overdose: Plan: Present on admission after overdose on Depakote (4 tablets of 500mg) and Abilify (2 tablets) and was found to be hypoxia Depakote level on admission 25 EKG showed no QTC prolongation Poison control was contacted recommend to check the Depakote level at 6 PM We will hold on Depakote and Abilify Continue suicidal precaution Continue monitor closely (2) Pneumonia due to 2019 novel coronavirus: Plan: Patient is unvaccinated Tested positive for COVID-19 on admission. Denies any upper respiratory symptoms Chest x-ray showed patchy bilateral airspace opacities are suspicious for multifocal pneumonia. CTA chest showed no PE. Bilateral multilobar subpleural groundglass densities are compatible with viral pneumonia. Mild mediastinal and hilar adenopathy, likely reactive. Received dexamethasone on admission, will continue with Patient declined remdesivir for now (I called brother to discuss and confirm it, unfortunately no one answered) We will check inflammatory markers such as CRP and ESR Continue oxygen supplement Patient encouraged self proning Continue incentive spirometry Continue monitor closely Bipolar disorder Seizure We will hold Abilify and Depakote for now Check Depakote level later as per poison control Elevated D-dimer Mostly due to COVID-19 CTA chest showed no PE Thrombocytopenia Platelet 85 No sign of active bleeding Monitor CBC DVT prophylaxis on Lovenox (monitor for any sign of bleeding) CODE STATUS full code History of Present Illness Chief Complaint: Drug overdose Primary Care Provider: Vinita Vidales DO 61 year old male with PMH- bipolar disorder, narcissistic personality disorder, multiple prior episodes of overdoses with last admission in 2005 for overdose of Seroquel and prior overdoses of lithium and Tegretol who presents emergency department after overdose from Depakote and Abilify. History obtained from ER document, nurse, ER physician since patient is a poor historian. I called his brother 3 times, phone kept ringing with no one answered. Patient was given 4 tablets Depakote 500 mg and 2 tablets of Abilify. As per nursing staff his brother fills his pillbox since pt is blind. Ptforgot to take his medications yesterday.Brother did not notice that he missed taking yesterday medication and filled his pillbox. Pt took yesterday medications in combination with today. When arrived in the ER he was found to be hypoxia with oxygen level in the 80s. He denies any upper respiratory infection such as shortness of breath, cough, runny nose or fever. He was tested positive in the ER for COVID-19. Nurse said his brother at home sounded very sick over the phone. Patient denies any chest pain, palpitation, suicidal ideation or any thoughts to hurt others. Allergies Allergy/AdvReac Type Severity Reaction Status Date / Time No Known Allergies Allergy Unknown Verified 11/04/21 15:54 Home Medications Medication Instructions Recorded Confirmed Type aripiprazole 15 mg tablet 15 mg PO QAM 01/17/20 11/04/21 History divalproex 500 mg tablet,extended 1,000 mg PO QAM 09/23/20 11/05/21 History release 24 hr Past Med/Surg History Medical History (Updated 11/04/21 @ 18:27 by Aguilar Huston DO) Bipolar disorder History of repeated overdose Social History Smoking Status: Former smoker Do You Dip or Chew Tobacco: No; Hx Alcohol Use: No Hx Substance Use: No Preferred Language: Lithuanian Communication Ability: Effective 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 Required: No Beliefs That Will Affect Care: Congregational Congregational Beliefs: Christianity Current Living Situation: Family Current Living Situation Comment: Lives with brother who manages medication administration Feels Safe at Home: Yes Safety Concerns: Feels Safe At This Time Assistive Devices: None Review of Systems Review of Systems: All systems reviewed & are unremarkable except as noted in HPI & below Physical Exam Physical Exam: General- No acute distress Head- atraumatic Eyes-+legally blind ENT- oropharynx clear Neck- supple, no JVD Lungs- +diminished breath sound Heart- regular rhythm; no murmur Abdomen- normal bowel sounds, soft, nontender Extremities- no calf tenderness Neuro- alert, oriented x 3; PERRL, EOMI; no facial palsy; no dysarthria Skin- warm & dry Results & Data Results & Data ([facility]) Vital Signs (Past 12 Hours) Vital Signs Temp Pulse Pulse Resp BP BP Pulse Ox 11/04/21 15:46 92 H 18 108/70 93 11/04/21 14:31 87 20 121/61 93 11/04/21 14:30 89 18 11/04/21 14:00 88 22 111/70 94 11/04/21 13:40 87 20 109/64 92 11/04/21 13:30 89 18 109/64 90 11/04/21 13:02 93 H 23 113/68 93 11/04/21 12:30 92 H 21 109/78 92 11/04/21 12:18 89 L 11/04/21 12:00 94 H 19 96/66 L 90 11/04/21 11:46 92 11/04/21 11:45 93 H 20 92 11/04/21 11:43 36.8 C 94 H 95 H 20 116/65 116/65 90 11/04/21 11:38 95 H 20 89 L (1) Drug overdose Encounter type: initial encounter Injury intent: undetermined intent Qualified Code(s): T50.904A - Poisoning by unspecified drugs, medicaments and biological substances, undetermined, initial encounter
[2021-11-04] MEDS ORDERED: ALBUT/IPRATROP 3MG/0.5MG NEB 3 ML VIAL NEB STA (21:08)
[2021-11-04] MEDS ORDERED: methylPREDNISolone 40 MG in SYRINGE 0 ML IV STA (21:08)
--- NOTE | 2021-11-04 21:29 | Electrocardiogram Report ---
Test Reason : Blood Pressure : / mmHG Vent. Rate : 096 BPM Atrial Rate : 096 BPM P-R Int : 166 ms QRS Dur : 098 ms QT Int : 328 ms P-R-T Axes : 049 049 044 degrees QTc Int : 414 ms Normal sinus rhythm Incomplete right bundle branch block Borderline ECG When compared with ECG of 23-SEP-2020 00:08, No significant change was found Confirmed by Benito Mars ([id number]) on 11/04/2021 9:29:06 PM Referred By: SELF Confirmed By:Benito Mars
--- NOTE | 2021-11-04 21:34 | XRay Report ---
XR chest 1V portable HISTORY: 61 years-old Male low o2 acute hypoxia COMPARISON: Chest radiograph of same day at 12:05 PM TECHNIQUE: Portable AP view of the chest FINDINGS: Cardiac silhouette is mildly enlarged. Emphysema with chronic interstitial coarsening. No pneumothora x or large pleural effusion. Ill-defined patchy bilateral airspace opacities appear unchanged. Degene rative changes of the shoulders and spine. IMPRESSION: Unchanged patchy bilateral opacities suggestive of multifocal pneumonia. ACT 112: Negative or not required by law. The above report was generated using voice recognition software. It may contain grammatical, syntax o r spelling errors. Electronically signed by: Rikki Diaz M.D. 11/04/2021 9:32 PM
[2021-11-04 21:38] LABS: Magnesium 2.1 mg/dl (1.8-2.4)
[2021-11-04 21:41] LABS: Base Excess ABG -0.7 mEq/L (-9-1.8); HCO3 ABG 23 mmol/L (19-24); Oxygen Saturation ABG 95.2 % (90-95); PCO2 ABG 34 mmHg (35-46); PO2 ABG 72 mmHg (80-95); pH ABG 7.45 (7.35-7.45)
[2021-11-04 21:50] LABS: Allen Test Pos (Pos)
[2021-11-04] MEDS ORDERED: OPTIRAY 320 125ml IV ONE (22:25)
--- NOTE | 2021-11-04 22:54 | CT Scan Report ---
CT angio chest PE protocol CT DOSE: 347.63 mGy.cm HISTORY: 61 years-old Male with low o2. Acute hypoxia TECHNIQUE: Multiple CTA images of the chest were obtained after the intravenous administration of 116 ml Optiray. Coronal and sagittal MIPS were obtained from the axial data set and were submitted for review. All measurements were obtained according to NASCET criteria. A dose lowering technique was u tilized adhering to the principles of ALARA. COMPARISON: Chest radiograph of same day, chest CT 09/23/2020 FINDINGS: CTA: The heart is upper limits of normal in size. Mild coronary artery calcifications. No pericardial effu sahara. No thoracic aortic aneurysm or dissection. Patency of the imaged great vessels. Satisfactory op acification of the pulmonary artery. No filling defects identified to suggest thromboembolic disease. CT CHEST: Unremarkable thyroid. Enlarged mediastinal and hilar lymph nodes include a 1.3 cm right hilar lymph n ode on image 133 and a 10 mm pretracheal lymph node on image 187. Small bilateral Bochdalek hernias. Trace pleural effusions. There is moderate pulmonary emphysema. No pneumothorax or overt pulmonary ed bam. Patchy subpleural predominant multilobar bilateral groundglass opacities. No suspicious pulmonar y nodules are identified. Minimal tracheobronchial secretions. Tiny hiatal hernia with mild distal esophageal wall thickening. Unremarkable soft tissues. There is n o acute fracture. Degenerative changes of the shoulders and spine. IMPRESSION: 1. No pulmonary emboli. 2. Bilateral multilobar subpleural groundglass densities are compatible with viral pneumonia. 3. Mild mediastinal and hilar adenopathy, likely reactive. 4. Tiny hiatal hernia. ACT 112: Negative or not required by law. The above report was generated using voice recognition software. It may contain grammatical, syntax o r spelling errors. Electronically signed by: Rikki Diaz M.D. 11/04/2021 10:53 PM
[2021-11-05] MEDS ORDERED: ALBUMIN 25% 100 mL 25 GM/100 ML VIAL IV STA (00:07)
[2021-11-05 01:07] LABS: Appearance Urine Clear (Clear); Bilirubin Urine Negative (Negative); Blood Urine Negative (Negative); Color Urine Dark Yellow; Glucose Urine UA Negative (Negative); Ketones Urine Trace (Negative); Leukocyte Esterase Urine Negative (Negative); Nitrite Urine Negative (Negative); Protein Urine Negative (Negative); Specific Gravity Urine 1.016 (1.000-1.030); Urobilinogen Urine Negative (Negative)
[2021-11-05 01:27] LABS: Amphetamines+Metham, Urine Neg (Neg); Barbiturates, Urine Neg (Neg); Benzodiazepine, Urine Neg (Neg); Cocaine, Urine Neg (Neg); MDMA (Ecstacy), Urine Neg (Neg); Methadone, Urine Neg (Neg); Opiate, Urine Neg (Neg); Phencyclidine, Urine Neg (Neg)
[2021-11-05 05:05] LABS: Hematocrit (blood only) 37.4 % (42-52); Mean Corpuscular Hemoglobin 32.7 pg (25-34); Mean Corpuscular Hgb Conc 34.8 g/dL (32-36); Mean Corpuscular Volume 94.2 fL (80-100); Mean Platelet Volume 10.5 fL (7.4-10.4); Platelet Count 107 K/uL (130-400); RDW Coefficient of Variation 12.6 % (11.5-14.5); RDW Standard Deviation 43.7 fL (36.4-46.3); Red Blood Count 3.97 M/uL (4.7-6.1); White Blood Count 1.55 K/uL (4.8-10.8)
[2021-11-05 05:41] LABS: BUN Creatinine Ratio 18.2 (10-20); Calcium 8.8 mg/dl (8.5-10.1); Creatinine Clr Calc Pharmacy 86.4 ml/min; Est GFR (Non-African American) 95.7 ml/min; Potassium 4.7 mmol/L (3.5-5.1)
[2021-11-05 05:45] LABS: Albumin Globulin Ratio 0.8 (0.9-2); Bilirubin,Total 0.4 mg/dl (0.2-1); C Reactive Protein 10.1 mg/dl (0-0.29); D Dimer 1240 ug/L FEU (0-500); Globulin 3.8 gm/dl (2.5-4.0); Total Protein 6.8 gm/dl (6.4-8.2)
[2021-11-05] MEDS: ENOXAPARIN INJ 40 MG/0.4 ML SYR SQ SCH (08:12)
[2021-11-05] MEDS: dexAMETHasone 6 MG in SYRINGE 0 ML IV SCH (14:23)
--- NOTE | 2021-11-05 19:05 | Hospitalist Progress Note ---
Date of Service November 05, 2021 Assessment & Plan (1) Drug overdose: Plan: Present on admission after overdose on Depakote (4 tablets of 500mg) and Abilify (2 tablets) and was found to be hypoxia Doubt to be intentional after discussed with his brother Bean Depakote level on admission 25, repeat Depakote level 30 today EKG showed no QTC prolongation Poison control was contacted about Depakote and Abilify Case discussed with psych Dr. Brito about when to resume his psych meds Will resume Depakote and Abilify in a.m. Continue suicidal precaution Continue monitor closely (2) Pneumonia due to 2019 novel coronavirus: Plan: Patient is unvaccinated Tested positive for COVID-19 on admission. Denies any upper respiratory symptoms Chest x-ray showed patchy bilateral airspace opacities are suspicious for multifocal pneumonia. CTA chest showed no PE. Bilateral multilobar subpleural groundglass densities are compatible with viral pneumonia. Mild mediastinal and hilar adenopathy, likely reactive. Received dexamethasone on admission, will continue with Patient declined remdesivir for now (I called brother to discussed and agreed with pt decision) Inflammatory markers elevated such as CRP 10 ESR within normal limits Continue oxygen supplement Continue encouraging patient to prone Continue incentive spirometry Continue monitor closely Bipolar disorder Seizure Abilify and Depakote resumed Depakote level 30 this morning Elevated D-dimer Mostly due to COVID-19 CTA chest showed no PE Thrombocytopenia Platelet 107 No sign of active bleeding Monitor CBC DVT prophylaxis on Lovenox (monitor for any sign of bleeding) CODE STATUS full code Disposition Spoke to brother Bean and provided with updates and answered all his questions ([phone]) Admission and Anticipated Discharge Date Admission Date: November 04, 2021 Subjective Patient was seen and examined for follow-up of shortness of breath due to COVID- 19 and drug overdose Lying in bed with no acute distress Patient said that he feels fine and denies any upper respiratory infection He denies any hallucination or suicidal thoughts I spoke to brother he said patient missed taking his meds on 11/03. Brother said after he gave him his medications yesterday that when he realized patient did not take his med on 11/03 He said patient took both days medication (11/03 and 11/04) before he realized to take them away from him Denies any chest pain, palpitation, dizziness, shortness of breath. Review of Systems Review of Systems: All systems reviewed & are unremarkable except as noted in Subjective Physical Exam Physical Exam: General- No acute distress Head- atraumatic Eyes-+legally blind ENT- oropharynx clear Neck- supple, no JVD Lungs- +diminished breath sound Heart- regular rhythm; no murmur Abdomen- normal bowel sounds, soft, nontender Extremities- no calf tenderness Neuro- alert, oriented x 3; PERRL, EOMI; no facial palsy; no dysarthria Skin- warm & dry Results & Data Results & Data ([facility]) Vital Signs (Past 12 Hours) Vital Signs Pulse Pulse Resp BP BP Pulse Ox 11/05/21 18:00 76 18 104/62 90 11/05/21 17:00 76 25 H 97/62 L 93 11/05/21 16:00 72 73 23 95/59 L 95/59 L 91 11/05/21 15:35 92 11/05/21 15:13 79 20 100/62 89 L 11/05/21 15:00 72 24 100/62 92 11/05/21 13:19 68 20 104/62 96 11/05/21 12:14 75 20 96 11/05/21 11:39 70 20 102/61 94 11/05/21 10:00 106/65 93 11/05/21 09:30 62 93 11/05/21 09:00 64 101/66 92 11/05/21 08:30 61 92 11/05/21 08:00 63 106/66 90 11/05/21 07:30 16 93 (1) Drug overdose Encounter type: initial encounter Injury intent: undetermined intent Qualified Code(s): T50.904A - Poisoning by unspecified drugs, medicaments and biological substances, undetermined, initial encounter
--- NOTE | 2021-11-06 07:44 | Electrocardiogram Report ---
Test Reason : Blood Pressure : / mmHG Vent. Rate : 064 BPM Atrial Rate : 064 BPM P-R Int : 192 ms QRS Dur : 096 ms QT Int : 416 ms P-R-T Axes : 058 052 038 degrees QTc Int : 429 ms Normal sinus rhythm Normal ECG When compared with ECG of 04-NOV-2021 11:38, Vent. rate has decreased BY 32 BPM Confirmed by Benito Mars ([id number]) on 11/06/2021 7:44:27 AM Referred By: REFERRED SELF Confirmed By:Benito Mars
[2021-11-06] MEDS: ENOXAPARIN INJ 40 MG/0.4 ML SYR SQ SCH (09:19)
[2021-11-06] MEDS: DIVALPROEX EXTENDED RELEASE 500 MG TAB PO SCH (09:20)
[2021-11-06] MEDS: ARIPiprazole 15 MG TAB PO SCH (09:20)
[2021-11-06 09:46] LABS: BUN Creatinine Ratio 20.9 (10-20); Calcium 8.7 mg/dl (8.5-10.1); Creatinine Clr Calc Pharmacy 77.7 ml/min; Est GFR (African American) 106.2 ml/min; Est GFR (Non-African American) 91.6 ml/min; Potassium 4.4 mmol/L (3.5-5.1)
[2021-11-06 09:52] LABS: C Reactive Protein 7.11 mg/dl (0-0.29)
[2021-11-06] MEDS: dexAMETHasone 6 MG in SYRINGE 0 ML IV SCH (14:45)
--- NOTE | 2021-11-06 16:13 | Hospitalist Progress Note ---
Date of Service November 06, 2021 Assessment & Plan (1) Drug overdose: Plan: Present on admission after overdose on Depakote (4 tablets of 500mg) and Abilify (2 tablets) and was found to be hypoxia Doubt to be intentional after discussed with his brother Bean Depakote level on admission 25, repeat Depakote level 30 today EKG showed no QTC prolongation Poison control was contacted about Depakote and Abilify Case discussed with psych Dr. Brito about when to resume his psych meds Will resume Depakote and Abilify in a.m. Continue suicidal precaution Remains stable but drowsy clinically We will continue to monitor (2) Pneumonia due to 2019 novel coronavirus: Plan: Patient is unvaccinated Tested positive for COVID-19 on admission. Denies any upper respiratory symptoms Chest x-ray showed patchy bilateral airspace opacities are suspicious for multifocal pneumonia. CTA chest showed no PE. Bilateral multilobar subpleural groundglass densities are compatible with viral pneumonia. Mild mediastinal and hilar adenopathy, likely reactive. Received dexamethasone on admission, will continue with Patient declined remdesivir for now (I called brother to discussed and agreed with pt decision) Inflammatory markers elevated such as CRP 10 ESR within normal limits Continue oxygen supplement Continue encouraging patient to prone Continue incentive spirometry Has been requiring 12 L of oxygen via oxygen mask to maintain saturation- condition has not improved Pancytopenia Likely secondary to COVID-19 infection Doubt due to Depakote toxicity Bipolar disorder Seizure Abilify and Depakote resumed Elevated D-dimer Mostly due to COVID-19 CTA chest showed no PE Thrombocytopenia Platelet 107 No sign of active bleeding Monitor CBC DVT prophylaxis on Lovenox (monitor for any sign of bleeding) CODE STATUS full code Disposition Spoke to brother Bean and provided with updates and answered all his questions ([phone]) Admission and Anticipated Discharge Date Admission Date: November 04, 2021 Subjective 11/06/2021 The patient was seen and examined in Covid unit He has been feeling much better still has minimal shortness of breath at rest He still requires 12 L oxygen via oxygen mask to maintain saturation Review of Systems Review of Systems: All systems reviewed and are unremarkable except as noted below Respiratory: Mild to moderate shortness of breath at rest Physical Exam Physical Exam: Lying in bed comfortably Constitutional: well developed, well nourished, + ill appearing and average body habitus Eyes: PERRL, conjunctivae normal, anicteric sclerae ENMT: external ear and nose normal, oropharynx normal Neck: trachea midline, no thyromegaly Respiratory: + respiratory distress (Mild to moderate respiratory distress) Auscultation: + diminished lung sounds and + crackles (Occasional crackles at the bases) Gastrointestinal (Abdomen): Inspection/Auscultation: normal bowel sounds; abdomen not distended Percussion/Palpation: abdomen soft; abdomen nontender Musculoskeletal: No acute arthritis in any joint Neurologic: Alert and awake. Legally blind, generally weak without any focal neuro deficit Lymphatic: no cervical or axillary lymphadenopathy Results & Data Results & Data ([facility]) Vital Signs (Past 12 Hours) Vital Signs Temp Pulse Resp BP Pulse Ox 11/06/21 16:06 37.0 C 86 18 105/62 94 11/06/21 11:45 36.9 C 84 18 102/61 93 11/06/21 08:00 37.0 C 90 18 104/63 95 Laboratory Results [facility] 11/06/21 06:51 Sodium 140 Potassium 4.4 Chloride 111 H Carbon Dioxide 21 BUN 19 H Creatinine 0.89 Glucose 98 Calcium 8.7 Medications Administered Current Inpatient Medications A[facility]ipraz[facility] ([facility]ole 15 Mg Tab) [facility] [place] Stop: 12/06/21 08:59 Last Admin: 11/06/21 09:20 Dose: 15 mg Documented by: Divalproex Sodium (Divalproex Extended Release 500 Mg Tab) 1,000 [facility] [place] Stop: 12/06/21 08:59 Last Admin: 11/06/21 09:20 Dose: 1,000 mg Documented by: Enoxaparin Sodium (Enoxaparin Inj 40 Mg/0.4 Ml Syr) 40 [facility] S[facility] Stop: 12/05/21 08:59 Last Admin: 11/06/21 09:19 Dose: 40 mg Documented by: Dexamethasone 6 mg/ Syringe 1.5 mls @ 1 mls/min IV Q24H [facility] Stop: 12/05/21 13:59 Last Admin: 11/06/21 14:45 Dose: 1 mls/min Documented by: (1) Drug overdose Encounter type: initial encounter Injury intent: undetermined intent Qualified Code(s): T50.904A - Poisoning by unspecified drugs, medicaments and biological substances, undetermined, initial encounter
[2021-11-07] MEDS ORDERED: COUGH DROP (SUGAR FREE) LOZ 24 LOZ/1 BOX BUCCAL ONE (02:21)
[2021-11-07] MEDS ORDERED: COUGH DROP (SUGAR FREE) LOZ 24 LOZ/1 BOX BUCCAL STA (02:27)
[2021-11-07 07:02] LABS: Creatinine Clr Calc Pharmacy 108.6 ml/min; Est GFR (African American) 117.9 ml/min; Est GFR (Non-African American) 101.7 ml/min
[2021-11-07] MEDS: DIVALPROEX EXTENDED RELEASE 500 MG TAB PO SCH (08:30)
[2021-11-07] MEDS: ARIPiprazole 15 MG TAB PO SCH (08:30)
[2021-11-07] MEDS: ENOXAPARIN INJ 40 MG/0.4 ML SYR SQ SCH (08:32)
[2021-11-07] MEDS ORDERED: ACETAMINOPHEN 500 MG TAB ONE (11:24)
[2021-11-07] MEDS ORDERED: ACETAMINOPHEN 500 MG TAB PO STA (11:30)
[2021-11-07] MEDS: dexAMETHasone 6 MG in SYRINGE 0 ML IV SCH (13:45)
--- NOTE | 2021-11-07 16:17 | Hospitalist Progress Note ---
Date of Service November 07, 2021 Assessment & Plan (1) Drug overdose: Plan: Present on admission after overdose on Depakote (4 tablets of 500mg) and Abilify (2 tablets) and was found to be hypoxia Doubt to be intentional after discussed with his brother Bean Depakote level on admission 25, repeat Depakote level 30 today EKG showed no QTC prolongation Poison control was contacted about Depakote and Abilify Case discussed with psych Dr. Brito about when to resume his psych meds Will resume Depakote and Abilify in a.m. Continue suicidal precaution Remains stable but drowsy clinically We will continue to monitor (2) Pneumonia due to 2019 novel coronavirus: Plan: Patient is unvaccinated Tested positive for COVID-19 on admission. Denies any upper respiratory symptoms Chest x-ray showed patchy bilateral airspace opacities are suspicious for multifocal pneumonia. CTA chest showed no PE. Bilateral multilobar subpleural groundglass densities are compatible with viral pneumonia. Mild mediastinal and hilar adenopathy, likely reactive. Received dexamethasone on admission, will continue with Patient declined remdesivir for now (I called brother to discussed and agreed with pt decision) Inflammatory markers elevated such as CRP 10 ESR within normal limits Continue oxygen supplement Continue encouraging patient to prone Continue incentive spirometry Has been requiring 12 L of oxygen via oxygen mask to maintain saturation- condition has not improved Remains in cumulative negative balance of 2200 mL and will not give any more Lasix Pancytopenia Likely secondary to COVID-19 infection Doubt due to Depakote toxicity Bipolar disorder Seizure Abilify and Depakote resumed Elevated D-dimer Mostly due to COVID-19 CTA chest showed no PE Thrombocytopenia Platelet 107 No sign of active bleeding Monitor CBC-platelet has been improving and it is 107 today DVT prophylaxis on Lovenox (monitor for any sign of bleeding) CODE STATUS full code Disposition Spoke to brother Bean and provided with updates and answered all his questions ([phone]) Admission and Anticipated Discharge Date Admission Date: November 04, 2021 Subjective 11/06/2021 The patient was seen and examined in Covid unit He has been feeling much better still has minimal shortness of breath at rest He still requires 12 L oxygen via oxygen mask to maintain saturation 11/07/2021 The patient was seen and examined in Covid unit He has been stable with facemask oxygen delivery at 12 L/min Denies any significant symptoms Review of Systems Review of Systems: All systems reviewed and are unremarkable except as noted below Respiratory: Mild to moderate shortness of breath at rest Physical Exam Physical Exam: Lying in bed comfortably Constitutional: well developed, well nourished, + ill appearing and average body habitus Eyes: PERRL, conjunctivae normal, anicteric sclerae ENMT: external ear and nose normal, oropharynx normal Neck: trachea midline, no thyromegaly Respiratory: + respiratory distress (Mild to moderate respiratory distress) Auscultation: + diminished lung sounds and + crackles (Occasional crackles at the bases) Cardiovascular: Rate/Rhythm: regular rate and regular rhythm; not tachycardic Heart Sounds: normal S1 and normal S2; no murmur Extremities: + edema (Trace edema bilaterally) Gastrointestinal (Abdomen): Inspection/Auscultation: normal bowel sounds; abdomen not distended Percussion/Palpation: abdomen soft; abdomen nontender Musculoskeletal: No acute arthritis in any joint Neurologic: Alert, awake . Generally weak. He is legally blind Lymphatic: no cervical or axillary lymphadenopathy Results & Data Results & Data ([facility]) Vital Signs (Past 12 Hours) Vital Signs Temp Pulse Resp BP Pulse Ox 11/07/21 15:47 36.3 C L 74 18 106/63 90 11/07/21 12:11 37.6 C H 11/07/21 11:13 38.0 C H 89 20 120/76 94 11/07/21 08:02 36.6 C 76 20 123/75 97 Laboratory Results [facility] 11/07/21 05:31 Creatinine 0.69 Medications Administered Current Inpatient Medications Aripiprazole (Aripiprazole 15 Mg Tab) 15 mg PO [facility] Stop: 12/06/21 08:59 Last Admin: 11/07/21 08:30 Dose: 15 mg Documented by: Divalproex Sodium (Divalproex Extended Release 500 Mg Tab) 1,000 mg PO [facility] Stop: 12/06/21 08:59 Last Admin: 11/07/21 08:30 Dose: 1,000 mg Documented by: Enoxaparin Sodium (Enoxaparin Inj 40 Mg/0.4 Ml Syr) 40 mg SQ [facility] Stop: 12/05/21 08:59 Last Admin: 01/04/22 08:32 Dose: 40 mg Documented by: Dexamethasone 6 mg/ Syringe 1.5 mls @ 1 mls/min IV Q24H DOC Stop: 12/05/21 13:59 Last Admin: 11/07/21 13:45 Dose: 1 mls/min Documented by: (1) Drug overdose Encounter type: initial encounter Injury intent: undetermined intent Qualified Code(s): T50.904A - Poisoning by unspecified drugs, medicaments and biological substances, undetermined, initial encounter
[2021-11-08 07:32] LABS: Marijuana Quant, GCMS Urine 402 ng/mL (<5)
[2021-11-08] MEDS: ARIPiprazole 15 MG TAB PO SCH (08:31)
[2021-11-08] MEDS: ENOXAPARIN INJ 40 MG/0.4 ML SYR SQ SCH (08:31)
[2021-11-08] MEDS: DIVALPROEX EXTENDED RELEASE 500 MG TAB PO SCH (08:31)
--- NOTE | 2021-11-08 09:17 | XRay Report ---
XR chest 1V portable CLINICAL HISTORY: R/O Pneumonia TECHNIQUE: Single frontal radiograph of the chest was obtained. Comparison: Comparison is made to chest one view 11/04/2021 FINDINGS: No lines and tubes are seen. The cardiomediastinal silhouette is stable. Multifocal airspace opacitie s are seen. No evidence of pleural effusion or pneumothorax. IMPRESSION: Multifocal airspace opacities may represent atelectasis, pneumonia, and/or aspiration. ACT 112: Negative or not required by law. Electronically signed by: Nikita Kimball M.D. 11/08/2021 9:16 AM
[2021-11-08 09:35] LABS: Hematocrit (blood only) 40.2 % (42-52); Hemoglobin 14.3 g/dL (14.0-18.0); Mean Corpuscular Hemoglobin 33.2 pg (25-34); Mean Corpuscular Hgb Conc 35.6 g/dL (32-36); Mean Corpuscular Volume 93.3 fL (80-100); Mean Platelet Volume 10.3 fL (7.4-10.4); Platelet Count 255 K/uL (130-400); RDW Coefficient of Variation 12.8 % (11.5-14.5); Red Blood Count 4.31 M/uL (4.7-6.1); White Blood Count 6.61 K/uL (4.8-10.8)
[2021-11-08 09:55] LABS: Basophils # (auto) 0.01 K/uL (0-0.2); Basophils % (auto) 0.2 %; Immature Granulocytes # (auto) 0.03 K/uL (0.00-0.02); Immature Granulocytes % (auto) 0.5 %; Lymphocytes # (auto) 0.45 K/uL (1.2-3.4); Lymphocytes % (auto) 6.8 %; Monocytes # (auto) 0.47 K/uL (0.11-0.59); Monocytes % (auto) 7.1 %; Neutrophils # (auto) 5.65 K/uL (1.4-6.5); Neutrophils % (auto) 85.4 %
[2021-11-08 11:28] LABS: Appearance Urine Clear (Clear); Bacteria Urine Automated Negative (Negative); Blood Urine Negative (Negative); Color Urine Dark Yellow; Epithelial Cell Urine Auto 20-30 /lpf (0-5); Glucose Urine UA Negative (Negative); Ketones Urine 1+ (Negative); Leukocyte Esterase Urine Trace (Negative); Nitrite Urine Negative (Negative); Protein Urine Negative (Negative); RBC Urine Automated 0-4 /hpf (0-4); Specific Gravity Urine 1.023 (1.000-1.030); Urobilinogen Urine Positive (Negative); pH Urine 7.5 (4.5-7.5)
[2021-11-08 11:30] LABS: Bilirubin Urine 1+ (Negative)
[2021-11-08] MEDS: dexAMETHasone 6 MG in SYRINGE 0 ML IV SCH (15:31)
--- NOTE | 2021-11-08 16:17 | Hospitalist Progress Note ---
Date of Service November 08, 2021 Assessment & Plan (1) Drug overdose: Plan: Present on admission after overdose on Depakote (4 tablets of 500mg) and Abilify (2 tablets) and was found to be hypoxia Doubt to be intentional after discussed with his brother Bean Depakote level on admission 25, repeat Depakote level 30 today EKG showed no QTC prolongation Poison control was contacted about Depakote and Abilify Case discussed with psych Dr. Brito about when to resume his psych meds Will resume Depakote and Abilify in a.m. Continue suicidal precaution Remains stable but drowsy clinically We will continue to monitor (2) Pneumonia due to 2019 novel coronavirus: Plan: Patient is unvaccinated Tested positive for COVID-19 on admission. Denies any upper respiratory symptoms Chest x-ray showed patchy bilateral airspace opacities are suspicious for multifocal pneumonia. CTA chest showed no PE. Bilateral multilobar subpleural groundglass densities are compatible with viral pneumonia. Mild mediastinal and hilar adenopathy, likely reactive. Received dexamethasone on admission, will continue with Patient declined remdesivir for now (I called brother to discussed and agreed with pt decision) Inflammatory markers elevated such as CRP 10 ESR within normal limits Continue oxygen supplement Continue encouraging patient to prone Continue incentive spirometry Has been requiring 12 L of oxygen via oxygen mask to maintain saturation- condition has not improved Remains in cumulative negative balance of 2200 mL and will not give any more Lasix Fever on and off Remains febrile likely secondary to COVID-19 viral pneumonia Procalcitonin is not elevated and white count not elevated to Urine does not look like to be infected Blood cultures have been sent No antibiotic started yet Pancytopenia Likely secondary to COVID-19 infection Doubt due to Depakote toxicity Bipolar disorder Seizure Abilify and Depakote resumed Elevated D-dimer Mostly due to COVID-19 CTA chest showed no PE Thrombocytopenia Platelet 107 No sign of active bleeding Monitor CBC-platelet has been improving and it is 107 today DVT prophylaxis on Lovenox (monitor for any sign of bleeding) CODE STATUS full code Disposition Spoke to brother Bean and provided with updates and answered all his questions ([phone]) Admission and Anticipated Discharge Date Admission Date: November 04, 2021 Subjective 11/06/2021 The patient was seen and examined in Covid unit He has been feeling much better still has minimal shortness of breath at rest He still requires 12 L oxygen via oxygen mask to maintain saturation 11/07/2021 The patient was seen and examined in Covid unit He has been stable with facemask oxygen delivery at 12 L/min Denies any significant symptoms 11/08/2021 The patient was seen and examined in Covid unit He has had temperature of 38 degrees again today and has been requiring up to 15 L of oxygen to maintain saturation He has been feeling much better and denies any significant symptoms Review of Systems Review of Systems: All systems reviewed and are unremarkable except as noted below Respiratory: Mild to moderate shortness of breath at rest Physical Exam Physical Exam: Lying in bed comfortably Constitutional: well developed, well nourished, + ill appearing and average body habitus Eyes: PERRL, conjunctivae normal, anicteric sclerae ENMT: external ear and nose normal, oropharynx normal Neck: trachea midline, no thyromegaly Respiratory: + respiratory distress (Mild to moderate respiratory distress) Auscultation: + diminished lung sounds and + crackles (Occasional crackles at the bases) Cardiovascular: Rate/Rhythm: regular rate and regular rhythm; not tachycardic Heart Sounds: normal S1 and normal S2; no murmur Extremities: + edema (Trace edema bilaterally) Gastrointestinal (Abdomen): Inspection/Auscultation: normal bowel sounds; abdomen not distended Percussion/Palpation: abdomen soft; abdomen nontender Musculoskeletal: Arthritis involving any joint Neurologic: Alert, awake and oriented x3. He is legally blind. Generally weak Lymphatic: no cervical or axillary lymphadenopathy Results & Data Results & Data ([facility]) Vital Signs (Past 12 Hours) Vital Signs Temp Pulse Pulse Resp BP BP Pulse Ox 11/08/21 15:28 37.0 C 83 20 105/68 90 11/08/21 14:24 93 11/08/21 11:24 37.5 C 84 20 110/62 92 11/08/21 10:35 76 11/08/21 09:42 36.8 C 11/08/21 07:40 38.1 C H 86 20 122/62 93 Laboratory Results Short CBC 11/08/21 Range/Units 08:59 WBC 6.61 (4.8-10.8) K/uL Hgb 14.3 (14.0-18.0) g/dL Hct 40.2 L (42-52) % Plt Count 255 (130-400) K/uL Urine 11/08/21 Range/Units Unknown Urine Color Dark Yellow Urine Appearance Clear (Clear) Urine pH 7.5 (4.5-7.5) Ur Specific [place] 1.023 (1.000-1.030) Urine Protein Negative (Negative) Urine Glucose (UA) Negative (Negative) Medications Administered Current Inpatient Medications Acetaminophen (Acetaminophen 500 Mg Tab) 1,000 mg PO Q6H PRN PRN Reason: Fever Stop: 12/08/21 09:04 Aripiprazole (Aripiprazole 15 Mg Tab) 15 mg PO [facility] Stop: 12/06/21 08:59 Last Admin: 11/08/21 08:31 Dose: 15 mg Documented by: Divalproex Sodium (Divalproex Extended Release 500 Mg Tab) 1,000 mg PO [facility] Stop: 12/06/21 08:59 Last Admin: 11/08/21 08:31 Dose: 1,000 mg Documented by: Enoxaparin Sodium (Enoxaparin Inj 40 Mg/0.4 Ml Syr) 40 mg SQ [facility] Stop: 12/05/21 08:59 Last Admin: 11/08/21 08:31 Dose: 40 mg Documented by: Dexamethasone 6 mg/ Syringe 1.5 mls @ 1 mls/min IV Q24H [facility] Stop: 12/05/21 13:59 Last Admin: 11/08/21 15:31 Dose: 1 mls/min Documented by: (1) Drug overdose Encounter type: initial encounter Injury intent: undetermined intent Qualified Code(s): T50.904A - Poisoning by unspecified drugs, medicaments and biological substances, undetermined, initial encounter
[2021-11-09 06:59] LABS: Basophils # (auto) 0.01 K/uL (0-0.2); Basophils % (auto) 0.2 %; Hematocrit (blood only) 37.7 % (42-52); Immature Granulocytes # (auto) 0.05 K/uL (0.00-0.02); Immature Granulocytes % (auto) 0.9 %; Lymphocytes # (auto) 0.67 K/uL (1.2-3.4); Lymphocytes % (auto) 11.5 %; Mean Corpuscular Hemoglobin 32.5 pg (25-34); Mean Corpuscular Hgb Conc 34.5 g/dL (32-36); Mean Corpuscular Volume 94.3 fL (80-100); Monocytes # (auto) 0.57 K/uL (0.11-0.59); Monocytes % (auto) 9.8 %; Neutrophils # (auto) 4.53 K/uL (1.4-6.5); Neutrophils % (auto) 77.6 %; Platelet Count 265 K/uL (130-400); RDW Coefficient of Variation 12.9 % (11.5-14.5); RDW Standard Deviation 44.9 fL (36.4-46.3); White Blood Count 5.83 K/uL (4.8-10.8)
[2021-11-09 07:21] LABS: BUN Creatinine Ratio 24.3 (10-20); Calcium 8.3 mg/dl (8.5-10.1); Creatinine Clr Calc Pharmacy 104.7 ml/min; Est GFR (African American) 120.1 ml/min; Est GFR (Non-African American) 103.6 ml/min; Potassium 4.4 mmol/L (3.5-5.1)
[2021-11-09] MEDS: ARIPiprazole 15 MG TAB PO SCH (10:08)
[2021-11-09] MEDS: DIVALPROEX EXTENDED RELEASE 500 MG TAB PO SCH (10:08)
[2021-11-09] MEDS: ENOXAPARIN INJ 40 MG/0.4 ML SYR SQ SCH (10:08)
[2021-11-09] MEDS ORDERED: FUROSEMIDE 40 MG/4 ML VIAL IV ONE (15:56)
--- NOTE | 2021-11-09 15:56 | Hospitalist Progress Note ---
Date of Service November 09, 2021 Assessment & Plan (1) Drug overdose: Plan: Present on admission after overdose on Depakote (4 tablets of 500mg) and Abilify (2 tablets) and was found to be hypoxia Doubt to be intentional after discussed with his brother Bean Depakote level on admission 25, repeat Depakote level 30 today EKG showed no QTC prolongation Poison control was contacted about Depakote and Abilify Case discussed with psych Dr. Brito about when to resume his psych meds Will resume Depakote and Abilify in a.m. Continue suicidal precaution Remains stable but drowsy clinically We will continue to monitor (2) Pneumonia due to 2019 novel coronavirus: Plan: Patient is unvaccinated Tested positive for COVID-19 on admission. Denies any upper respiratory symptoms Chest x-ray showed patchy bilateral airspace opacities are suspicious for multifocal pneumonia. CTA chest showed no PE. Bilateral multilobar subpleural groundglass densities are compatible with viral pneumonia. Mild mediastinal and hilar adenopathy, likely reactive. Received dexamethasone on admission, will continue with Patient declined remdesivir for now (I called brother to discussed and agreed with pt decision) Inflammatory markers elevated such as CRP 10 ESR within normal limits Continue oxygen supplement Continue encouraging patient to prone Continue incentive spirometry Has been requiring 12 L of oxygen via oxygen mask to maintain saturation- condition has not improved Remains in cumulative negative balance of 2200 mL and will not give any more Lasix Will give another dose of Lasix 40 mg IV today Fever on and off Remains febrile likely secondary to COVID-19 viral pneumonia Procalcitonin is not elevated and white count not elevated to Urine does not look like to be infected Blood cultures -negative so far No antibiotic started yet Pancytopenia Likely secondary to COVID-19 infection Doubt due to Depakote toxicity Pancytopenia is resolved Bipolar disorder Seizure Abilify and Depakote resumed Elevated D-dimer Mostly due to COVID-19 CTA chest showed no PE Thrombocytopenia Platelet 107 No sign of active bleeding Monitor CBC-platelet has been improving and it is 107 today DVT prophylaxis on Lovenox (monitor for any sign of bleeding) CODE STATUS full code Disposition Spoke to brother Bean and provided with updates and answered all his questions ([phone]) Admission and Anticipated Discharge Date Admission Date: November 04, 2021 Subjective 11/06/2021 The patient was seen and examined in Covid unit He has been feeling much better still has minimal shortness of breath at rest He still requires 12 L oxygen via oxygen mask to maintain saturation 11/07/2021 The patient was seen and examined in Covid unit He has been stable with facemask oxygen delivery at 12 L/min Denies any significant symptoms 11/08/2021 The patient was seen and examined in Covid unit He has had temperature of 38 degrees again today and has been requiring up to 15 L of oxygen to maintain saturation He has been feeling much better and denies any significant symptoms 11/09/2021 The patient was seen and examined in Covid unit He denies any symptoms and has been feeling much better but has been requiring up to 30 L, 100% oxygen via oxygen mask to maintain saturation No more fever and no chills Review of Systems Review of Systems: All systems reviewed and are unremarkable except as noted below Respiratory: Mild to moderate shortness of breath at rest Physical Exam Physical Exam: Lying in bed comfortably Constitutional: well developed, well nourished, + ill appearing and average body habitus Eyes: PERRL, conjunctivae normal, anicteric sclerae ENMT: external ear and nose normal, oropharynx normal Neck: trachea midline, no thyromegaly Respiratory: + respiratory distress (Mild to moderate respiratory distress) Auscultation: + diminished lung sounds and + crackles (Occasional crackles at the bases) Cardiovascular: Rate/Rhythm: regular rate and regular rhythm; not tachycardic Heart Sounds: normal S1 and normal S2; no murmur Extremities: + edema (Trace edema bilaterally) Gastrointestinal (Abdomen): Inspection/Auscultation: normal bowel sounds; abdomen not distended Percussion/Palpation: abdomen soft; abdomen nontender Musculoskeletal: No acute arthritis in any joint Neurologic: Alert and awake. He is legally blind Lymphatic: no cervical or axillary lymphadenopathy Results & Data Results & Data ([facility]) Vital Signs (Past 12 Hours) Vital Signs Temp Pulse Pulse Resp BP Pulse Ox Pulse Ox 11/09/21 15:46 37.1 C 76 20 111/66 92 11/09/21 15:36 72 18 93 11/09/21 11:37 88 L 11/09/21 11:19 36.7 C 72 20 112/72 90 11/09/21 10:00 82 20 92 11/09/21 08:00 58 L 11/09/21 07:15 35.9 C L 61 20 98/60 L 96 11/09/21 05:12 93 11/09/21 05:00 56 L 20 93 Pulse Ox Pulse Ox 11/09/21 15:46 11/09/21 15:36 11/09/21 11:37 90 71 L 11/09/21 11:19 11/09/21 10:00 11/09/21 08:00 11/09/21 07:15 11/09/21 05:12 11/09/21 05:00 Laboratory Results Short CBC 11/09/21 Range/Units 06:04 WBC 5.83 (4.8-10.8) K/uL Hgb 13.0 L (14.0-18.0) g/dL Hct 37.7 L (42-52) % Plt Count 265 (130-400) K/uL BMP 11/09/21 06:04 Sodium 136 Potassium 4.4 Chloride 106 Carbon Dioxide 24 BUN 16 Creatinine 0.66 Glucose 106 H Calcium 8.3 L Medications Administered Current Inpatient Medications Acetaminophen (Acetaminophen 500 Mg Tab) 1,000 mg PO Q6H PRN PRN Reason: Fever Stop: 12/08/21 09:04 Aripiprazole (Aripiprazole 15 Mg Tab) 15 mg PO [facility] Stop: 12/06/21 08:59 Last Admin: 11/09/21 10:08 Dose: 15 mg Documented by: Divalproex Sodium (Divalproex Extended Release 500 Mg Tab) 1,000 mg PO [facility] Stop: 12/06/21 08:59 Last Admin: 11/09/21 10:08 Dose: 1,000 mg Documented by: Enoxaparin Sodium (Enoxaparin Inj 40 Mg/0.4 Ml Syr) [facility] Stop: 12/05/21 08:59 Last Admin: 11/09/21 10:08 Dose: 40 mg Documented by: Dexamethasone 6 mg/ Syringe 1.5 mls @ 1 mls/min IV Q24H [facility] Stop: 12/05/21 13:59 Last Admin: 11/08/21 15:31 Dose: 1 mls/min Documented by: (1) Drug overdose Encounter type: initial encounter Injury intent: undetermined intent Qualified Code(s): T50.904A - Poisoning by unspecified drugs, medicaments and biological substances, undetermined, initial encounter
[2021-11-09] MEDS: dexAMETHasone 6 MG in SYRINGE 0 ML IV SCH (16:05)
[2021-11-10 07:24] LABS: Calcium 8.6 mg/dl (8.5-10.1); Creatinine Clr Calc Pharmacy 117.1 ml/min; Est GFR (African American) 125.8 ml/min; Est GFR (Non-African American) 108.5 ml/min; Potassium 4.2 mmol/L (3.5-5.1)
[2021-11-10] MEDS: ENOXAPARIN INJ 40 MG/0.4 ML SYR SQ SCH (10:05)
[2021-11-10] MEDS: ARIPiprazole 15 MG TAB PO SCH (10:05)
[2021-11-10] MEDS: DIVALPROEX EXTENDED RELEASE 500 MG TAB PO SCH (10:05)
[2021-11-10] MEDS ORDERED: bisacodyL 10 MG SUPP PR STA (11:28)
[2021-11-10] MEDS ORDERED: POLYETHYLENE (MIRALAX) 17 GM PACK PO PRN (11:28)
[2021-11-10] MEDS ORDERED: FUROSEMIDE 40 MG/4 ML VIAL IV ONE (11:29)
[2021-11-10] MEDS: dexAMETHasone 6 MG in SYRINGE 0 ML IV SCH (12:46)
--- NOTE | 2021-11-10 15:21 | Hospitalist Progress Note ---
Date of Service November 10, 2021 Assessment & Plan (1) Drug overdose: Plan: Present on admission after overdose on Depakote (4 tablets of 500mg) and Abilify (2 tablets) and was found to be hypoxia Doubt to be intentional after discussed with his brother Bean Depakote level on admission 25, repeat Depakote level 30 today EKG showed no QTC prolongation Poison control was contacted about Depakote and Abilify Case discussed with psych Dr. Brito about when to resume his psych meds Will resume Depakote and Abilify in a.m. Continue suicidal precaution Remains stable but drowsy clinically We will continue to monitor (2) Pneumonia due to 2019 novel coronavirus: Plan: Patient is unvaccinated Tested positive for COVID-19 on admission. Denies any upper respiratory symptoms Chest x-ray showed patchy bilateral airspace opacities are suspicious for multifocal pneumonia. CTA chest showed no PE. Bilateral multilobar subpleural groundglass densities are compatible with viral pneumonia. Mild mediastinal and hilar adenopathy, likely reactive. Received dexamethasone on admission, will continue with Patient declined remdesivir for now (I called brother to discussed and agreed with pt decision) Inflammatory markers elevated such as CRP 10 ESR within normal limits Continue oxygen supplement Continue encouraging patient to prone Continue incentive spirometry Has been requiring 12 L of oxygen via oxygen mask to maintain saturation- condition has not improved Remains in cumulative negative balance of 2200 mL and will not give any more Lasix Clinically much better and denies any symptoms but has been requiring more oxygen to maintain saturation We will give another dose of Lasix today Fever on and off Remains febrile likely secondary to COVID-19 viral pneumonia Procalcitonin is not elevated and white count not elevated to Urine does not look like to be infected Blood cultures -negative so far No antibiotic started yet-no more fever and no chills Constipation We will try laxatives and enema if needed Pancytopenia Likely secondary to COVID-19 infection Doubt due to Depakote toxicity Pancytopenia is resolved Bipolar disorder Seizure Abilify and Depakote resumed Elevated D-dimer Mostly due to COVID-19 CTA chest showed no PE Thrombocytopenia Platelet 107 No sign of active bleeding Monitor CBC-platelet has been improving and it is 107 today DVT prophylaxis on Lovenox (monitor for any sign of bleeding) CODE STATUS full code Disposition Spoke to brother Bean and provided with updates and answered all his questions ([phone]) Admission and Anticipated Discharge Date Admission Date: November 04, 2021 Subjective 11/06/2021 The patient was seen and examined in Covid unit He has been feeling much better still has minimal shortness of breath at rest He still requires 12 L oxygen via oxygen mask to maintain saturation 11/07/2021 The patient was seen and examined in Covid unit He has been stable with facemask oxygen delivery at 12 L/min Denies any significant symptoms 11/08/2021 The patient was seen and examined in Covid unit He has had temperature of 38 degrees again today and has been requiring up to 15 L of oxygen to maintain saturation He has been feeling much better and denies any significant symptoms 11/09/2021 The patient was seen and examined in Covid unit He denies any symptoms and has been feeling much better but has been requiring up to 30 L, 100% oxygen via oxygen mask to maintain saturation No more fever and no chills 11/10/2021 The patient was seen and examined in Covid unit He has been feeling much better but requiring more oxygen to maintain saturation He has not had any bowel movement for the last few days Denies any pain and/or nausea or vomiting Review of Systems Review of Systems: All systems reviewed and are unremarkable except as noted below Respiratory: Mild to moderate shortness of breath at rest Physical Exam Physical Exam: Lying in bed comfortably Constitutional: well developed, well nourished, + ill appearing and average body habitus Eyes: PERRL, conjunctivae normal, anicteric sclerae ENMT: external ear and nose normal, oropharynx normal Neck: trachea midline, no thyromegaly Respiratory: + respiratory distress (Mild to moderate respiratory distress) Auscultation: + diminished lung sounds and + crackles (Occasional crackles at the bases) Cardiovascular: Rate/Rhythm: regular rate and regular rhythm; not tachycardic Heart Sounds: normal S1 and normal S2; no murmur Extremities: + edema (Trace edema bilaterally) Gastrointestinal (Abdomen): Inspection/Auscultation: normal bowel sounds; abdomen not distended Percussion/Palpation: abdomen soft; abdomen nontender Musculoskeletal: No acute arthritis in any joint Neurologic: Alert, awake and oriented. Generally weak but no focal neuro deficit Lymphatic: no cervical or axillary lymphadenopathy Results & Data Results & Data ([facility]) Vital Signs (Past 12 Hours) Vital Signs Temp Pulse Pulse Resp BP BP Pulse Ox 11/10/21 14:47 36.7 C 76 16 102/67 93 11/10/21 11:10 79 22 95 11/10/21 10:53 37.1 C 75 18 104/65 95 11/10/21 09:34 79 22 91 11/10/21 07:43 66 24 99 11/10/21 07:26 36.4 C L 66 18 104/64 98 11/10/21 07:00 58 L 11/10/21 03:57 62 20 91 Laboratory Results [facility] 11/10/21 05:59 Sodium 135 L Potassium 4.2 Chloride 105 Carbon Dioxide 23 BUN 18 Creatinine 0.59 L Glucose 103 H Calcium 8.6 Medications Administered Current Inpatient Medications Acetaminophen (Acetaminophen 500 Mg Tab) 1,000 mg PO Q6H PRN PRN Reason: Fever Stop: 12/08/21 09:04 Aripiprazole (Aripiprazole 15 Mg Tab) [address] [facility] Stop: 12/06/21 08:59 Last Admin: 11/10/21 10:05 Dose: 15 mg Documented by: Divalproex Sodium (Divalproex Extended Release 500 Mg Tab) 1,[address] [facility] Stop: 12/06/21 08:59 Last Admin: 11/10/21 10:05 Dose: 1,000 mg Documented by: Enoxaparin Sodium (Enoxaparin Inj 40 Mg/0.4 Ml Syr) [address] [facility] Stop: 12/05/21 08:59 Last Admin: 11/10/21 10:05 Dose: 40 mg Documented by: Dexamethasone 6 mg/ Syringe 1.5 mls @ 1 mls/min IV Q24H [facility] Stop: 12/05/21 13:59 Last Admin: 11/10/21 12:46 Dose: 1 mls/min Documented by: Polyethylene Glycol (Polyethylene (Miralax) 17 Gm Pack) 17 gm PO DAILY PRN PRN Reason: Constipation Stop: 12/10/21 11:27 Last Admin: 11/10/21 12:46 Dose: 17 gm Documented by: (1) Drug overdose Encounter type: initial encounter Injury intent: undetermined intent Qualified Code(s): T50.904A - Poisoning by unspecified drugs, medicaments and biological substances, undetermined, initial encounter
[2021-11-11 07:43] LABS: BUN Creatinine Ratio 28.2 (10-20); Calcium 8.8 mg/dl (8.5-10.1); Est GFR (African American) 121.6 ml/min; Est GFR (Non-African American) 104.9 ml/min; Potassium 3.7 mmol/L (3.5-5.1)
[2021-11-11] MEDS ORDERED: POTASSIUM CHLORIDE CRTAB 20 MEQ TABCR PO STA (08:42)
[2021-11-11] MEDS: ARIPiprazole 15 MG TAB PO SCH (09:38)
[2021-11-11] MEDS: DIVALPROEX EXTENDED RELEASE 500 MG TAB PO SCH (09:39)
[2021-11-11] MEDS: ENOXAPARIN INJ 40 MG/0.4 ML SYR SQ SCH (09:39)
--- NOTE | 2021-11-11 12:54 | Hospitalist Progress Note ---
Date of Service November 11, 2021 Assessment & Plan (1) Drug overdose: Plan: Present on admission after overdose on Depakote (4 tablets of 500mg) and Abilify (2 tablets) and was found to be hypoxia Doubt to be intentional after discussed with his brother Bean Depakote level on admission 25, repeat Depakote level 30 today EKG showed no QTC prolongation Poison control was contacted about Depakote and Abilify Case discussed with psych Dr. Brito about when to resume his psych meds Will resume Depakote and Abilify in a.m. Continue suicidal precaution No more issues with overdose (2) Pneumonia due to 2019 novel coronavirus: Plan: Patient is unvaccinated Tested positive for COVID-19 on admission. Denies any upper respiratory symptoms Chest x-ray showed patchy bilateral airspace opacities are suspicious for multifocal pneumonia. CTA chest showed no PE. Bilateral multilobar subpleural groundglass densities are compatible with viral pneumonia. Mild mediastinal and hilar adenopathy, li charleen reactive. Received dexamethasone on admission, will continue with Patient declined remdesivir for now (I called brother to discussed and agreed with pt decision) Inflammatory markers elevated such as CRP 10 ESR within normal limits Continue oxygen supplement Continue encouraging patient to prone Continue incentive spirometry Has been requiring 12 L of oxygen via oxygen mask to maintain saturation- condition has not improved Remains in cumulative negative balance of 2200 mL and will not give any more Lasix Clinically much better and denies any symptoms but has been requiring more oxygen to maintain saturation Clinically not any better and has been requiring very high flow oxygen to maintain saturation We will discuss with the brother Fever on and off Remains febrile likely secondary to COVID-19 viral pneumonia Procalcitonin is not elevated and white count not elevated to Urine does not look like to be infected Blood cultures -negative so far No antibiotic started yet-no more fever and no chills Constipation We will try laxatives and enema if needed Laxatives given Pancytopenia Likely secondary to COVID-19 infection Doubt due to Depakote toxicity Pancytopenia is resolved Bipolar disorder Seizure Abilify and Depakote resumed Elevated D-dimer Mostly due to COVID-19 CTA chest showed no PE Thrombocytopenia Platelet 107 No sign of active bleeding Monitor CBC-platelet has been improving and it is 107 today DVT prophylaxis on Lovenox (monitor for any sign of bleeding) CODE STATUS full code Disposition Spoke to brother Bean and provided with updates and answered all his questions ([phone]) Admission and Anticipated Discharge Date Admission Date: November 04, 2021 Subjective 11/06/2021 The patient was seen and examined in Covid unit He has been feeling much better still has minimal shortness of breath at rest He still requires 12 L oxygen via oxygen mask to maintain saturation 11/07/2021 The patient was seen and examined in Covid unit He has been stable with facemask oxygen delivery at 12 L/min Denies any significant symptoms 11/08/2021 The patient was seen and examined in Covid unit He has had temperature of 38 degrees again today and has been requiring up to 15 L of oxygen to maintain saturation He has been feeling much better and denies any significant symptoms 11/09/2021 The patient was seen and examined in Covid unit He denies any symptoms and has been feeling much better but has been requiring up to 30 L, 100% oxygen via oxygen mask to maintain saturation No more fever and no chills 11/10/2021 The patient was seen and examined in Covid unit He has been feeling much better but requiring more oxygen to maintain saturation He has not had any bowel movement for the last few days Denies any pain and/or nausea or vomiting 11/11/2021 The patient was seen and examined in Covid unit He has been feeling a little better but requiring up to 40 L of oxygen at 100% FiO2 to maintain saturation Denies any symptoms Review of Systems Review of Systems: All systems reviewed and are unremarkable except as noted below Respiratory: Mild to moderate shortness of breath at rest Physical Exam Physical Exam: Lying in bed comfortably Constitutional: well developed, well nourished, + ill appearing and average body habitus Eyes: PERRL, conjunctivae normal, anicteric sclerae ENMT: external ear and nose normal, oropharynx normal Neck: trachea midline, no thyromegaly Respiratory: + respiratory distress (Mild to moderate respiratory distress) Auscultation: + diminished lung sounds and + crackles (Occasional crackles at the bases) Cardiovascular: Rate/Rhythm: regular rate and regular rhythm; not tachycardic Heart Sounds: normal S1 and normal S2; no murmur Extremities: + edema (Trace edema bilaterally) Gastrointestinal (Abdomen): Inspection/Auscultation: normal bowel sounds; abdomen not distended Percussion/Palpation: abdomen soft; abdomen nontender Musculoskeletal: No acute arthritis in any joint Neurologic: Alert, awake and oriented x3. Generally very weak and lethargic Lymphatic: no cervical or axillary lymphadenopathy Results & Data Results & Data ([facility]) Vital Signs (Past 12 Hours) Vital Signs Temp Pulse Resp BP Pulse Ox 11/11/21 12:25 88 20 81 L 11/11/21 11:06 36.4 C L 75 22 105/69 97 11/11/21 07:39 36.7 C 65 20 94/59 L 95 11/11/21 06:26 75 18 95 11/11/21 03:44 36.6 C 72 20 120/64 92 11/11/21 03:16 81 24 90 11/11/21 01:25 20 83 L Laboratory Results [facility] 11/11/21 06:10 Sodium 134 L Potassium 3.7 Chloride 103 Carbon Dioxide 27 BUN 18 Creatinine 0.64 Glucose 82 Calcium 8.8 Medications Administered Current Inpatient Medications Acetaminophen (Acetaminophen 500 Mg Tab) 1,000 mg PO Q6H PRN PRN Reason: Fever Stop: 12/08/21 09:04 Aripiprazole (Aripiprazole 15 Mg Tab) 15 mg PO [facility] Stop: 12/06/21 08:59 Last Admin: 11/11/21 09:38 Dose: 15 mg Documented by: Divalproex Sodium (Divalproex Extended Release 500 Mg Tab) 1,000 mg PO [facility] Stop: 12/06/21 08:59 Last Admin: 11/11/21 09:39 Dose: 1,000 mg Documented by: Enoxaparin Sodium (Enoxaparin Inj 40 Mg/0.4 Ml Syr) 40 mg SQ [facility] Stop: 12/05/21 08:59 Last Admin: 11/11/21 09:39 Dose: 40 mg Documented by: Dexamethasone 6 mg/ Syringe 1.5 mls @ 1 mls/min IV Q24H [facility] Stop: 12/05/21 13:59 Last Admin: 11/10/21 12:46 Dose: 1 mls/min Documented by: Polyethylene Glycol (Polyethylene (Miralax) 17 Gm Pack) 17 gm PO DAILY PRN PRN Reason: Constipation Stop: 12/10/21 11:27 Last Admin: 11/10/21 12:46 Dose: 17 gm Documented by: (1) Drug overdose Encounter type: initial encounter Injury intent: undetermined intent Qualified Code(s): T50.904A - Poisoning by unspecified drugs, medicaments and biological substances, undetermined, initial encounter
[2021-11-11] MEDS: dexAMETHasone 6 MG in SYRINGE 0 ML IV SCH (14:55)
[2021-11-12] MEDS: ACETAMINOPHEN 500 MG TAB PO PRN (04:10)
[2021-11-12] MEDS: ARIPiprazole 15 MG TAB PO SCH (09:13)
[2021-11-12] MEDS: DIVALPROEX EXTENDED RELEASE 500 MG TAB PO SCH (09:14)
[2021-11-12] MEDS: ENOXAPARIN INJ 40 MG/0.4 ML SYR SQ SCH (09:14)
[2021-11-12] MEDS: dexAMETHasone 6 MG in SYRINGE 0 ML IV SCH (13:17)
--- NOTE | 2021-11-12 13:42 | Hospitalist Progress Note ---
Date of Service November 12, 2021 Assessment & Plan (1) Drug overdose: Plan: Present on admission after overdose on Depakote (4 tablets of 500mg) and Abilify (2 tablets) and was found to be hypoxia Doubt to be intentional after discussed with his brother Bean Depakote level on admission 25, repeat Depakote level 30 today EKG showed no QTC prolongation Poison control was contacted about Depakote and Abilify Case discussed with psych Dr. Brito about when to resume his psych meds Will resume Depakote and Abilify in a.m. Continue suicidal precaution No more issues with overdose (2) Pneumonia due to 2019 novel coronavirus: Plan: Patient is unvaccinated Tested positive for COVID-19 on admission. Denies any upper respiratory symptoms Chest x-ray showed patchy bilateral airspace opacities are suspicious for multifocal pneumonia. CTA chest showed no PE. Bilateral multilobar subpleural groundglass densities are compatible with viral pneumonia. Mild mediastinal and hilar adenopathy, li charleen reactive. Received dexamethasone on admission, will continue with Patient declined remdesivir for now (I called brother to discussed and agreed with pt decision) Inflammatory markers elevated such as CRP 10 ESR within normal limits Continue oxygen supplement Continue encouraging patient to prone Continue incentive spirometry Has been requiring 12 L of oxygen via oxygen mask to maintain saturation- condition has not improved Remains in cumulative negative balance of 2200 mL and will not give any more Lasix He denies any symptoms but has been requiring more oxygen to maintain saturation He started crying when he came to know that he is not going to go home in a day or 2 as he has been requiring very high flow oxygen Will discuss with his brother Fever on and off Remains febrile likely secondary to COVID-19 viral pneumonia Procalcitonin is not elevated and white count not elevated to Urine does not look like to be infected Blood cultures -negative so far No antibiotic started yet-no more fever and no chills Constipation We will try laxatives and enema if needed Laxatives given-bowel movement Pancytopenia Likely secondary to COVID-19 infection Doubt due to Depakote toxicity Pancytopenia is resolved Bipolar disorder Seizure Abilify and Depakote resumed Elevated D-dimer Mostly due to COVID-19 CTA chest showed no PE Thrombocytopenia Platelet 107 No sign of active bleeding Monitor CBC-platelet has been improving and it is 107 today DVT prophylaxis on Lovenox (monitor for any sign of bleeding) CODE STATUS full code Disposition Spoke to brother Bean and provided with updates and answered all his questions ([phone]) Admission and Anticipated Discharge Date Admission Date: November 04, 2021 Subjective 11/06/2021 The patient was seen and examined in Covid unit He has been feeling much better still has minimal shortness of breath at rest He still requires 12 L oxygen via oxygen mask to maintain saturation 11/07/2021 The patient was seen and examined in Covid unit He has been stable with facemask oxygen delivery at 12 L/min Denies any significant symptoms 11/08/2021 The patient was seen and examined in Covid unit He has had temperature of 38 degrees again today and has been requiring up to 15 L of oxygen to maintain saturation He has been feeling much better and denies any significant symptoms 11/09/2021 The patient was seen and examined in Covid unit He denies any symptoms and has been feeling much better but has been requiring up to 30 L, 100% oxygen via oxygen mask to maintain saturation No more fever and no chills 11/10/2021 The patient was seen and examined in Covid unit He has been feeling much better but requiring more oxygen to maintain saturation He has not had any bowel movement for the last few days Denies any pain and/or nausea or vomiting 11/11/2021 The patient was seen and examined in Covid unit He has been feeling a little better but requiring up to 40 L of oxygen at 100% FiO2 to maintain saturation Denies any symptoms 11/12/2021 The patient was seen and examined in Covid unit He has been feeling a little better but still requires high flow oxygen to maintain saturation He remains pleasantly confused and wants to go home He started crying when he knew that he is not going to go home in a day or 2 Review of Systems Review of Systems: All systems reviewed and are unremarkable except as noted below Respiratory: Mild to moderate shortness of breath at rest Physical Exam Physical Exam: Lying in bed comfortably Constitutional: well developed, well nourished, + ill appearing and average body habitus Eyes: PERRL, conjunctivae normal, anicteric sclerae ENMT: external ear and nose normal, oropharynx normal Neck: trachea midline, no thyromegaly Respiratory: + respiratory distress (Mild to moderate respiratory distress) Auscultation: + diminished lung sounds and + crackles (Occasional crackles at the bases) Cardiovascular: Rate/Rhythm: regular rate and regular rhythm; not tachycardic Heart Sounds: normal S1 and normal S2; no murmur Extremities: + edema (Trace edema bilaterally) Gastrointestinal (Abdomen): Inspection/Auscultation: normal bowel sounds; abdomen not distended Percussion/Palpation: abdomen soft; abdomen nontender Musculoskeletal: No acute arthritis in any joint Neurologic: Alert and awake. Pleasantly confused. Generally weak without any focal neuro deficit Lymphatic: no cervical or axillary lymphadenopathy Results & Data Results & Data ([facility]) Vital Signs (Past 12 Hours) Vital Signs Temp Pulse Pulse Resp BP BP Pulse Ox 11/12/21 11:38 71 20 91 11/12/21 11:34 36.9 C 66 20 102/67 88 L 11/12/21 08:00 67 20 90 11/12/21 07:38 36.4 C L 63 20 101/66 95 11/12/21 06:21 65 11/12/21 03:08 36.4 C L 68 20 116/73 83 L 11/12/21 02:55 64 20 89 L Medications Administered Current Inpatient Medications Acetaminophen (Acetaminophen 500 Mg Tab) 1,000 mg PO Q6H PRN PRN Reason: Fever Stop: 12/08/21 09:04 Last Admin: 11/12/21 04:10 Dose: 1,000 mg Documented by: Aripiprazole (Aripiprazole 15 Mg Tab) 15 mg PO [facility] Stop: 12/06/21 08:59 Last Admin: 11/12/21 09:13 Dose: 15 mg Documented by: Divalproex Sodium (Divalproex Extended Release 500 Mg Tab) 1,000 mg PO [facility] Stop: 12/06/21 08:59 Last Admin: 11/12/21 09:14 Dose: 1,000 mg Documented by: Enoxaparin Sodium (Enoxaparin Inj 40 Mg/0.4 Ml Syr) 40 mg SQ [facility] Stop: 12/05/21 08:59 Last Admin: 11/12/21 09:14 Dose: 40 mg Documented by: Dexamethasone 6 mg/ Syringe 1.5 mls @ 1 mls/min IV Q24H [facility] Stop: 12/05/21 13:59 Last Admin: 11/12/21 13:17 Dose: 1 mls/min Documented by: Polyethylene Glycol (Polyethylene (Miralax) 17 Gm Pack) 17 gm PO DAILY PRN PRN Reason: Constipation Stop: 12/10/21 11:27 Last Admin: 11/10/21 12:46 Dose: 17 gm Documented by: (1) Drug overdose Encounter type: initial encounter Injury intent: undetermined intent Qualified Code(s): T50.904A - Poisoning by unspecified drugs, medicaments and biological substances, undetermined, initial encounter
[2021-11-13 07:20] LABS: Creatinine Clr Calc Pharmacy 138.2 ml/min; Est GFR (African American) 134.6 ml/min; Est GFR (Non-African American) 116.1 ml/min
[2021-11-13] MEDS: ARIPiprazole 15 MG TAB PO SCH (08:40)
[2021-11-13] MEDS: DIVALPROEX EXTENDED RELEASE 500 MG TAB PO SCH (08:40)
[2021-11-13] MEDS: ENOXAPARIN INJ 40 MG/0.4 ML SYR SQ SCH (08:40)
[2021-11-13] MEDS: dexAMETHasone 6 MG in SYRINGE 0 ML IV SCH (13:36)
--- NOTE | 2021-11-13 15:12 | XRay Report ---
XR chest 1V portable CLINICAL HISTORY: Covid pneumonia. Follow-up bilateral airspace opacities COMPARISON STUDY: 11/08/2021 TECHNIQUE: 1 view of the chest FINDINGS: Single frontal view of the chest demonstrates the cardiomediastinal silhouette to be within normal li mits. Compared to previous examination, there is worsening of bilateral airspace opacities, right gre ater than left. The findings are again most characteristic of a viral type pneumonitis and Covid pneu monia. There is no evidence for pleural effusion. There is no evidence for vascular congestion. There is no acute osseous pathology. IMPRESSION: Interval worsening of patchy interstitial and alveolar opacities bilaterally, right great er than left. ACT 112: Negative or not required by law. Electronically signed by: Tyson Bates M.D. 11/13/2021 3:10 PM
--- NOTE | 2021-11-13 17:01 | Hospitalist Progress Note ---
Date of Service November 13, 2021 Assessment & Plan (1) Drug overdose: Plan: Present on admission after overdose on Depakote (4 tablets of 500mg) and Abilify (2 tablets) and was found to be hypoxia Doubt to be intentional after discussed with his brother Bean Depakote level on admission 25, repeat Depakote level 30 today EKG showed no QTC prolongation Poison control was contacted about Depakote and Abilify Case discussed with psych Dr. Brito about when to resume his psych meds Will resume Depakote and Abilify in a.m. Continue suicidal precaution No more issues with overdose (2) Pneumonia due to 2019 novel coronavirus: Plan: Patient is unvaccinated Tested positive for COVID-19 on admission. Denies any upper respiratory symptoms Chest x-ray showed patchy bilateral airspace opacities are suspicious for multifocal pneumonia. CTA chest showed no PE. Bilateral multilobar subpleural groundglass densities are compatible with viral pneumonia. Mild mediastinal and hilar adenopathy, l ikely reactive. Received dexamethasone on admission, will continue with Patient declined remdesivir for now (I called brother to discussed and agreed with pt decision) Inflammatory markers elevated such as CRP 10 ESR within normal limits Continue oxygen supplement Continue encouraging patient to prone Continue incentive spirometry Has been requiring 12 L of oxygen via oxygen mask to maintain saturation- condition has not improved Remains in cumulative negative balance of 2200 mL and will not give any more Lasix He denies any symptoms but has been requiring more oxygen to maintain saturation He started crying when he came to know that he is not going to go home in a day or 2 as he has been requiring very high flow oxygen Condition has been getting worse but clinically he feels better Chest x-ray did show worsening of bilateral basal infiltration We will recheck blood counts tomorrow Fever on and off Remains febrile likely secondary to COVID-19 viral pneumonia Procalcitonin is not elevated and white count not elevated to Urine does not look like to be infected Blood cultures -negative so far No antibiotic started yet-no more fever and no chills Constipation We will try laxatives and enema if needed Laxatives given-bowel movement Pancytopenia Likely secondary to COVID-19 infection Doubt due to Depakote toxicity Pancytopenia is resolved Bipolar disorder Seizure Abilify and Depakote resumed Elevated D-dimer Mostly due to COVID-19 CTA chest showed no PE Thrombocytopenia Platelet 107 No sign of active bleeding Monitor CBC-platelet has been improving and it is 107 today DVT prophylaxis on Lovenox (monitor for any sign of bleeding) CODE STATUS full code Disposition Spoke to brother Bean and provided with updates and answered all his questions ([phone]) Discussed with the brother and updated about current condition Admission and Anticipated Discharge Date Admission Date: November 04, 2021 Subjective 11/06/2021 The patient was seen and examined in Covid unit He has been feeling much better still has minimal shortness of breath at rest He still requires 12 L oxygen via oxygen mask to maintain saturation 11/07/2021 The patient was seen and examined in Covid unit He has been stable with facemask oxygen delivery at 12 L/min Denies any significant symptoms 11/08/2021 The patient was seen and examined in Covid unit He has had temperature of 38 degrees again today and has been requiring up to 15 L of oxygen to maintain saturation He has been feeling much better and denies any significant symptoms 11/09/2021 The patient was seen and examined in Covid unit He denies any symptoms and has been feeling much better but has been requiring up to 30 L, 100% oxygen via oxygen mask to maintain saturation No more fever and no chills 11/10/2021 The patient was seen and examined in Covid unit He has been feeling much better but requiring more oxygen to maintain saturation He has not had any bowel movement for the last few days Denies any pain and/or nausea or vomiting 11/11/2021 The patient was seen and examined in Covid unit He has been feeling a little better but requiring up to 40 L of oxygen at 100% FiO2 to maintain saturation Denies any symptoms 11/12/2021 The patient was seen and examined in Covid unit He has been feeling a little better but still requires high flow oxygen to maintain saturation He remains pleasantly confused and wants to go home He started crying when he knew that he is not going to go home in a day or 2 11/13/2021 The patient was seen and examined in medical COVID unit He has been feeling much better but requiring more than 10 L of oxygen to maintain saturation Chest x-ray did show worsening of bilateral infiltration-discussed with the brother Review of Systems Review of Systems: All systems reviewed and are unremarkable except as noted below Respiratory: Mild to moderate shortness of breath at rest Physical Exam Physical Exam: Lying in bed comfortably Constitutional: well developed, well nourished, + ill appearing and average body habitus Eyes: PERRL, conjunctivae normal, anicteric sclerae ENMT: external ear and nose normal, oropharynx normal Neck: trachea midline, no thyromegaly Respiratory: + respiratory distress (Mild to moderate respiratory distress) Auscultation: + diminished lung sounds and + crackles (Occasional crackles at the bases) Cardiovascular: Rate/Rhythm: regular rate and regular rhythm; not tachycardic Heart Sounds: normal S1 and normal S2; no murmur Extremities: + edema (Trace edema bilaterally) Gastrointestinal (Abdomen): Inspection/Auscultation: normal bowel sounds; abdomen not distended Percussion/Palpation: abdomen soft; abdomen nontender Musculoskeletal: No acute arthritis in any joint Lymphatic: no cervical or axillary lymphadenopathy Results & Data Results & Data ([facility]) Vital Signs (Past 12 Hours) Vital Signs Temp Pulse Pulse Pulse Resp BP Pulse Ox 11/13/21 14:20 79 11/13/21 11:18 36.8 C 80 24 104/57 L 87 L 11/13/21 07:55 86 20 90 11/13/21 07:32 36.5 C 59 L 24 109/61 88 L 11/13/21 06:18 68 11/13/21 05:49 75 20 93 Laboratory Results [facility] 11/13/21 05:46 Creatinine 0.50 L Medications Administered Current Inpatient Medications Acetaminophen (Acetaminophen 500 Mg Tab) 1,000 mg PO Q6H PRN PRN Reason: Fever Stop: 12/08/21 09:04 Last Admin: 11/12/21 04:10 Dose: 1,000 mg Documented by: Aripiprazole (Aripiprazole 15 Mg Tab) 15 mg PO [facility] Stop: 12/06/21 08:59 Last Admin: 11/13/21 08:40 Dose: 15 mg Documented by: Divalproex Sodium (Divalproex Extended Release 500 Mg Tab) 1,000 mg PO [facility] Stop: 12/06/21 08:59 Last Admin: 11/13/21 08:40 Dose: 1,000 mg Documented by: Enoxaparin Sodium (Enoxaparin Inj 40 Mg/0.4 Ml Syr) 40 mg SQ [facility] Stop: 12/05/21 08:59 Last Admin: 11/13/21 08:40 Dose: 40 mg Documented by: Dexamethasone 6 mg/ Syringe 1.5 mls @ 1 mls/min IV Q24H [facility] Stop: 12/05/21 13:59 Last Admin: 11/13/21 13:36 Dose: 1 mls/min Documented by: Polyethylene Glycol (Polyethylene (Miralax) 17 Gm Pack) 17 gm PO DAILY PRN PRN Reason: Constipation Stop: 12/10/21 11:27 Last Admin: 11/10/21 12:46 Dose: 17 gm Documented by: (1) Drug overdose Encounter type: initial encounter Injury intent: undetermined intent Qualified Code(s): T50.904A - Poisoning by unspecified drugs, medicaments and biological substances, undetermined, initial encounter
[2021-11-14 06:28] LABS: Basophils # (auto) 0.02 K/uL (0-0.2); Basophils % (auto) 0.2 %; Eosinophils # (auto) 0.03 K/uL (0-0.5); Eosinophils % (auto) 0.4 %; Hematocrit (blood only) 38.8 % (42-52); Hemoglobin 13.3 g/dL (14.0-18.0); Immature Granulocytes # (auto) 0.32 K/uL (0.00-0.02); Immature Granulocytes % (auto) 3.8 %; Lymphocytes # (auto) 1.03 K/uL (1.2-3.4); Lymphocytes % (auto) 12.2 %; Mean Corpuscular Hemoglobin 32.8 pg (25-34); Mean Corpuscular Hgb Conc 34.3 g/dL (32-36); Mean Corpuscular Volume 95.8 fL (80-100); Mean Platelet Volume 9.5 fL (7.4-10.4); Monocytes # (auto) 0.48 K/uL (0.11-0.59); Monocytes % (auto) 5.7 %; Neutrophils # (auto) 6.56 K/uL (1.4-6.5); Neutrophils % (auto) 77.7 %; Platelet Count 360 K/uL (130-400); RDW Coefficient of Variation 13.3 % (11.5-14.5); RDW Standard Deviation 46.6 fL (36.4-46.3); Red Blood Count 4.05 M/uL (4.7-6.1); White Blood Count 8.44 K/uL (4.8-10.8)
[2021-11-14 07:03] LABS: Albumin Level 1.9 gm/dl (3.4-5.0); BUN Creatinine Ratio 32.4 (10-20); Calcium 9.2 mg/dl (8.5-10.1); Creatinine Clr Calc Pharmacy 109.7 ml/min; Est GFR (African American) 122.4 ml/min; Est GFR (Non-African American) 105.6 ml/min; Potassium 4.6 mmol/L (3.5-5.1)
[2021-11-14 07:06] LABS: Albumin Globulin Ratio 0.4 (0.9-2); Bilirubin,Total 0.4 mg/dl (0.2-1); C Reactive Protein 9.15 mg/dl (0-0.29); Globulin 4.6 gm/dl (2.5-4.0); Total Protein 6.5 gm/dl (6.4-8.2)
[2021-11-14] MEDS: ENOXAPARIN INJ 40 MG/0.4 ML SYR SQ SCH (08:58)
[2021-11-14] MEDS: DIVALPROEX EXTENDED RELEASE 500 MG TAB PO SCH (08:59)
[2021-11-14] MEDS: ARIPiprazole 15 MG TAB PO SCH (08:59)
[2021-11-14] MEDS: dexAMETHasone 6 MG in SYRINGE 0 ML IV SCH (15:01)
--- NOTE | 2021-11-14 15:34 | Hospitalist Progress Note ---
Date of Service November 14, 2021 Assessment & Plan (1) Drug overdose: Plan: Present on admission after overdose on Depakote (4 tablets of 500mg) and Abilify (2 tablets) and was found to be hypoxia Doubt to be intentional after discussed with his brother Bean Depakote level on admission 25, repeat Depakote level 30 today EKG showed no QTC prolongation Poison control was contacted about Depakote and Abilify Case discussed with psych Dr. Brito about when to resume his psych meds Will resume Depakote and Abilify in a.m. Continue suicidal precaution No more issues with overdose (2) Pneumonia due to 2019 novel coronavirus: Plan: Patient is unvaccinated Tested positive for COVID-19 on admission. Denies any upper respiratory symptoms Chest x-ray showed patchy bilateral airspace opacities are suspicious for multifocal pneumonia. CTA chest showed no PE. Bilateral multilobar subpleural groundglass densities are compatible with viral pneumonia. Mild mediastinal and hilar adenopathy, l ikely reactive. Received dexamethasone on admission, will continue with Patient declined remdesivir for now (I called brother to discussed and agreed with pt decision) Inflammatory markers elevated such as CRP 10 ESR within normal limits Continue oxygen supplement Continue encouraging patient to prone Continue incentive spirometry Has been requiring 12 L of oxygen via oxygen mask to maintain saturation- condition has not improved Remains in cumulative negative balance of 2200 mL and will not give any more Lasix He denies any symptoms but has been requiring more oxygen to maintain saturation He started crying when he came to know that he is not going to go home in a day or 2 as he has been requiring very high flow oxygen Condition has been getting worse but clinically he feels better Chest x-ray did show worsening of bilateral basal infiltration No signs and/or symptoms of increasing inflammation or infection Cannot give any Lasix as blood pressure is on the lower side Fever on and off Remains febrile likely secondary to COVID-19 viral pneumonia Procalcitonin is not elevated and white count not elevated to Urine does not look like to be infected Blood cultures -negative so far No antibiotic started yet-no more fever and no chills Constipation We will try laxatives and enema if needed Laxatives given-bowel movement Pancytopenia Likely secondary to COVID-19 infection Doubt due to Depakote toxicity Pancytopenia is resolved Bipolar disorder Seizure Abilify and Depakote resumed Elevated D-dimer Mostly due to COVID-19 CTA chest showed no PE Thrombocytopenia Platelet 107 No sign of active bleeding Monitor CBC-platelet has been improving and it is 107 today DVT prophylaxis on Lovenox (monitor for any sign of bleeding) CODE STATUS full code Disposition Spoke to brother Bean and provided with updates and answered all his questions ([phone]) Discussed with the brother and updated about current condition-11/13/2021 Admission and Anticipated Discharge Date Admission Date: November 04, 2021 Subjective 11/06/2021 The patient was seen and examined in Covid unit He has been feeling much better still has minimal shortness of breath at rest He still requires 12 L oxygen via oxygen mask to maintain saturation 11/07/2021 The patient was seen and examined in Covid unit He has been stable with facemask oxygen delivery at 12 L/min Denies any significant symptoms 11/08/2021 The patient was seen and examined in Covid unit He has had temperature of 38 degrees again today and has been requiring up to 15 L of oxygen to maintain saturation He has been feeling much better and denies any significant symptoms 11/09/2021 The patient was seen and examined in Covid unit He denies any symptoms and has been feeling much better but has been requiring up to 30 L, 100% oxygen via oxygen mask to maintain saturation No more fever and no chills 11/10/2021 The patient was seen and examined in Covid unit He has been feeling much better but requiring more oxygen to maintain saturation He has not had any bowel movement for the last few days Denies any pain and/or nausea or vomiting 11/11/2021 The patient was seen and examined in Covid unit He has been feeling a little better but requiring up to 40 L of oxygen at 100% FiO2 to maintain saturation Denies any symptoms 11/12/2021 The patient was seen and examined in Covid unit He has been feeling a little better but still requires high flow oxygen to maintain saturation He remains pleasantly confused and wants to go home He started crying when he knew that he is not going to go home in a day or 2 11/13/2021 The patient was seen and examined in medical COVID unit He has been feeling much better but requiring more than 10 L of oxygen to maintain saturation Chest x-ray did show worsening of bilateral infiltration-discussed with the brother 11/14/2021 The patient was seen and examined in medical COVID unit He has been doing much better but he still requires about 8 to 10 L of oxygen to maintain saturation He denies any significant symptoms and wants to go home Review of Systems Review of Systems: All systems reviewed and are unremarkable except as noted below Respiratory: Mild to moderate shortness of breath at rest Physical Exam Physical Exam: Lying in bed comfortably Constitutional: well developed, well nourished, + ill appearing and average body habitus Eyes: PERRL, conjunctivae normal, anicteric sclerae ENMT: external ear and nose normal, oropharynx normal Neck: trachea midline, no thyromegaly Respiratory: + respiratory distress (Mild to moderate respiratory distress) Auscultation: + diminished lung sounds and + crackles (Occasional crackles at the bases) Cardiovascular: Rate/Rhythm: regular rate and regular rhythm; not tachycardic Heart Sounds: normal S1 and normal S2; no murmur Extremities: + edema (Trace edema bilaterally) Gastrointestinal (Abdomen): Inspection/Auscultation: normal bowel sounds; abdomen not distended Percussion/Palpation: abdomen soft; abdomen nontender Musculoskeletal: No acute arthritis in the knee joint Neurologic: Alert and awake. Legally blind Lymphatic: no cervical or axillary lymphadenopathy Results & Data Results & Data ([facility]) Vital Signs (Past 12 Hours) Vital Signs Temp Pulse Pulse Resp BP Pulse Ox 11/14/21 14:54 37.0 C 80 18 96/62 L 91 11/14/21 14:03 68 20 90 11/14/21 11:23 37.2 C 60 18 102/65 95 11/14/21 11:02 78 20 90 11/14/21 07:33 68 20 90 11/14/21 07:23 36.5 C 70 18 107/70 95 11/14/21 06:24 67 11/14/21 03:43 36.5 C 73 20 100/59 L 91 Laboratory Results Short CBC 11/14/21 Range/Units 05:51 WBC 8.44 (4.8-10.8) K/uL Hgb 13.3 L (14.0-18.0) g/dL Hct 38.8 L (42-52) % Plt Count 360 (130-400) K/uL BMP 11/14/21 05:51 Sodium 136 Potassium 4.6 Chloride 106 Carbon Dioxide 26 BUN 20 H Creatinine 0.63 Glucose 89 Calcium 9.2 Liver Function 11/14/21 Range/Units 05:51 Total Bilirubin 0.4 (0.2-1) mg/dl AST 20 (15-37) U/L ALT 49 (12-78) Alkaline Phosphatase 70 (45-117) U/L Albumin 1.9 L (3.4-5.0) gm/dl Medications Administered Current Inpatient Medications Acetaminophen (Acetaminophen 500 Mg Tab) 1,000 mg PO Q6H PRN PRN Reason: Fever Stop: 12/08/21 09:04 Last Admin: 11/12/21 04:10 Dose: 1,000 mg Documented by: Aripiprazole (Aripiprazole 15 Mg Tab) 15 mg PO [facility] Stop: 12/06/21 08:59 Last Admin: 11/14/21 08:59 Dose: 15 mg Documented by: Divalproex Sodium (Divalproex Extended Release 500 Mg Tab) 1,000 mg PO [facility] Stop: 12/06/21 08:59 Last Admin: 11/14/21 08:59 Dose: 1,000 mg Documented by: Enoxaparin Sodium (Enoxaparin Inj 40 Mg/0.4 Ml Syr) 40 mg SQ [facility] Stop: 12/05/21 08:59 Last Admin: 11/14/21 08:58 Dose: 40 mg Documented by: Dexamethasone 6 mg/ Syringe 1.5 mls @ 1 mls/min IV Q24H [facility] Stop: 12/05/21 13:59 Last Admin: 11/14/21 15:01 Dose: 1 mls/min Documented by: Polyethylene Glycol (Polyethylene (Miralax) 17 Gm Pack) 17 gm PO DAILY PRN PRN Reason: Constipation Stop: 12/10/21 11:27 Last Admin: 11/10/21 12:46 Dose: 17 gm Documented by: (1) Drug overdose Encounter type: initial encounter Injury intent: undetermined intent Qualified Code(s): T50.904A - Poisoning by unspecified drugs, medicaments and biological substances, undetermined, initial encounter
[2021-11-15] MEDS: ENOXAPARIN INJ 40 MG/0.4 ML SYR SQ SCH (08:19)
[2021-11-15] MEDS: DIVALPROEX EXTENDED RELEASE 500 MG TAB PO SCH (08:19)
[2021-11-15] MEDS: ARIPiprazole 15 MG TAB PO SCH (08:20)
[2021-11-15] MEDS: dexAMETHasone 6 MG in SYRINGE 0 ML IV SCH (14:39)
[2021-11-15] MEDS ORDERED: FUROSEMIDE INJ 20 MG/2 ML VIAL IV ONE ×2 (16:22→16:26)
--- NOTE | 2021-11-15 16:31 | Hospitalist Progress Note ---
Date of Service November 15, 2021 Assessment & Plan (1) Drug overdose: Plan: Patient Presented after overdose on Depakote (4 tablets of 500mg) and Abilify (2 tablets) and was found to be hypoxia Less likely intentional after discussed with his brother Bean by prior hospitalist Depakote level:25>32>30 EKG showed no QTC prolongation Poison control was contacted by prior hospitalist Case discussed with psych Dr. Brito Resumed Depakote and Abilify Suicidal precautions Monitor (2) Pneumonia due to 2019 novel coronavirus: Plan: Acute respiratory failure with hypoxia Patient is unvaccinated Tested positive for COVID-19 on admission. -CTA chest showed no PE. Bilateral multilobar subpleural groundglass densities are compatible with viral pneumonia. Mild mediastinal and hilar adenopathy, likely reactive. Patient declined remdesivir (Patient's brother to discussed and agreed with pt decision) CRP 10 Continue dexamethasone Continue supplemental oxygen as needed Encouraged to prone Lasix PRN Pulmonary Hygiene Check chest x-ray, inflammatory markers tomorrow Currently on high flow oxygen Remittent fever Likely secondary to above Cultures negative Monitor Constipation Bowel regimen Pancytopenia Likely secondary to COVID-19 infection Doubt due to Depakote toxicity Pancytopenia resolved Bipolar disorder Seizure Abilify and Depakote resumed Elevated D-dimer Mostly due to COVID-19 CTA chest showed no PE Thrombocytopenia Platelet 107>360 Resolved DVT Px: Lovenox SQ CODE STATUS Full code Disposition To be determined Family :Brother Bean ([phone]) Admission and Anticipated Discharge Date Admission Date: November 04, 2021 Subjective Patient is seen and examined at bedside Currently on 40 L supplemental oxygen Offers no complaints Denies any chest pain, cough, dizziness, nausea, abdominal pain Review of Systems Review of Systems: All systems reviewed & are unremarkable except as noted in Subjective Physical Exam Physical Exam: Physical Exam: Vitals signs as noted above General Appearance: Ill-appearing, no apparent distress Head: normocephalic, Atraumatic Eyes: normal inspection, EOMI Neck: supple, Trachea midline Respiratory/Chest: Decreased breath sounds, minimal basal crackles, No accessory muscle use Cardiovascular: S1, S2, No murmur Abdomen/GI:Soft, Non tender, Bowel sounds present Extremities/Musculoskeletal:normal inspection, no edema Neurologic/Psych:AAOX3, grossly no focal neurological deficits, + legally blind Skin: normal color, warm Results & Data Results & Data ([facility]) Vital Signs (Past 12 Hours) Vital Signs Temp Pulse Pulse Resp BP BP Pulse Ox 11/15/21 15:36 85 18 90 11/15/21 15:30 37.2 C 83 18 99/60 L 92 11/15/21 15:27 77 19 90 11/15/21 14:19 85 11/15/21 14:05 93 11/15/21 12:00 36.9 C 81 24 107/69 92 11/15/21 10:44 85 20 93 11/15/21 07:20 68 20 93 11/15/21 06:30 36.5 C 67 20 106/66 94 11/15/21 06:16 69 11/15/21 05:11 68 (1) Drug overdose Encounter type: initial encounter Injury intent: undetermined intent Qualified Code(s): T50.904A - Poisoning by unspecified drugs, medicaments and biological substances, undetermined, initial encounter
[2021-11-16 07:36] LABS: Hematocrit (blood only) 37.6 % (42-52); Mean Corpuscular Hemoglobin 33.2 pg (25-34); Mean Corpuscular Hgb Conc 34.6 g/dL (32-36); Mean Corpuscular Volume 96.2 fL (80-100); Mean Platelet Volume 9.6 fL (7.4-10.4); Platelet Count 320 K/uL (130-400); RDW Coefficient of Variation 13.3 % (11.5-14.5); RDW Standard Deviation 45.9 fL (36.4-46.3); Red Blood Count 3.91 M/uL (4.7-6.1)
[2021-11-16] MEDS: ENOXAPARIN INJ 40 MG/0.4 ML SYR SQ SCH (07:54)
[2021-11-16] MEDS: DIVALPROEX EXTENDED RELEASE 500 MG TAB PO SCH (07:54)
[2021-11-16] MEDS: ARIPiprazole 15 MG TAB PO SCH (07:54)
[2021-11-16 08:24] LABS: BUN Creatinine Ratio 37.5 (10-20); Calcium 8.5 mg/dl (8.5-10.1); Creatinine Clr Calc Pharmacy 123.4 ml/min; Est GFR (African American) 128.5 ml/min; Est GFR (Non-African American) 110.9 ml/min; Potassium 4.4 mmol/L (3.5-5.1)
--- NOTE | 2021-11-16 09:16 | XRay Report ---
XR chest 1V portable CLINICAL HISTORY: Covid positive. Follow-up bilateral interstitial and alveolar opacities. COMPARISON STUDY: 11/13/2021 TECHNIQUE: 1 view of the chest FINDINGS: Single frontal view of the chest demonstrates the cardiomediastinal silhouette to be within normal li mits. Compared to the previous examination, there has been continued worsening of interstitial and al veolar opacities bilaterally, especially on the left side. There is no evidence for pleural effusion. There is no evidence for vascular congestion. There is no acute osseous pathology. IMPRESSION: Continued interval worsening of bilateral interstitial and alveolar opacities. ACT 112: Negative or not required by law. Electronically signed by: Tyson Bates M.D. 11/16/2021 9:00 AM
[2021-11-16 09:50] LABS: Base Excess ABG 1.5 mEq/L (-9-1.8); HCO3 ABG 26 mmol/L (19-24); PCO2 ABG 40 mmHg (35-46); PO2 ABG 53 mmHg (80-95); pH ABG 7.43 (7.35-7.45)
[2021-11-16] MEDS ORDERED: RAPID SEQUENCE INDUCTION BAG ONE (09:50)
[2021-11-16 09:52] LABS: Allen Test Pos (Pos)
[2021-11-16] MEDS ORDERED: PROPOFOL IV EMULSION 10 MG/ML 100 ML VIAL IV ONE (10:04)
[2021-11-16] MEDS ORDERED: NOREPINEPHRINE/D5W 8 MG/508 ML IV ONE (10:05)
[2021-11-16] MEDS ORDERED: STAT IV Infusion **Titration per Protocol STA ×2 (10:19→14:55)
[2021-11-16] MEDS ORDERED: PROPOFOL BOLUS FROM BAG IV PRN (10:19)
[2021-11-16] MEDS: NOREPINEPHRINE/D5W 8 MG/508 ML BAG IV SCH (11:02)
[2021-11-16] MEDS: propofoL 1,000 MG/100 ML VIAL IV SCH ×3 (11:03→21:25)
--- NOTE | 2021-11-16 11:06 | XRay Report ---
XR chest 1V portable CLINICAL HISTORY: intubation, central line, gastric tube placement COMPARISON STUDY: Chest CT November 04, 2021. Chest radiograph November 16, 2021 at 8:54 AM. FINDINGS: Tip of endotracheal tube is 2.6 cm above the irene. Tip of nasogastric tube is at least wi thin the body of the stomach. Stomach is distended. Tip of left subclavian central line is within the SVC. No pneumothorax or pleural effusion. Extensive bilateral airspace opacities persist. IMPRESSION: 1. Satisfactory positioning of lines and tubes. No pneumothorax. 2. No significant change in bilateral airspace opacities. 3. Gaseous distention of the stomach. ACT 112: Negative or not required by law. Electronically signed by: Eldon Dickens M.D. 11/16/2021 11:04 AM
[2021-11-16 11:33] LABS: iSTAT Art Bld Gas pCO2 Correct 49 mmHg (35-46); iSTAT Art Bld Gas pH Corrected 7.329 (7.35-7.45); iSTAT Arterial Blood Gas HCO3 26 meg/L (19-24); iSTAT Arterial Blood Gas pCO2 47 mmHg (35-46); iSTAT Arterial Blood Gas pH 7.34 (7.35-7.45); iSTAT Arterial Blood Gas pO2 49 mmHg (80-95); iSTAT Arterial Blood Gas pO2 C 53; iSTAT Carbon Dioxide 27 mmol/L (24-31); iSTAT Hematocrit 39 % (42-52); iSTAT Hemoglobin 13.3 g/dl (14.0-18.0); iSTAT Potassium 4.1 mmol/L (3.3-5.0); iSTAT Site Art Line; iSTAT Sodium 136 mmol/L (135-144)
[2021-11-16] MEDS: dexAMETHasone 6 MG in SYRINGE 0 ML IV SCH (14:13)
--- NOTE | 2021-11-16 14:25 | Procedure Note ---
Procedure Note Date of Service November 16, 2021 Note INTUBATION PROCEDURE NOTE: Provider: Eyal Cedeño MD A time-out was completed verifying correct patient, procedure, site, positioning. Patient was evaluated and required intubation for hypoxemic respiratory failure. Sedative agent used: Etomidate 40 mg, Versed 5 mg Paralysis agent used: None Verbal consent was obtained from the patient. Due to the gravity of the clinical situation, written consent was not achievable. Patient was also consented for tracheostomy, PEG tube placement, arterial line, and central line prior to intubation The patient was prepared in the appropriate fashion. Sedation was achieved utilizing etomidate and Versed. The patient was preoxygenated using positive airway pressure ventilation. Oxygen saturations were in the low 80% range despite a higher percent on CPAP 14. A 7.5 Argentine endotracheal tube was placed under video laryngoscopy. The stylette was removed and balloon was inflated with 10mL of air. Appropriate Colorimetric change was appreciated. Bilateral breath sounds were heard without air sounds in the abdomen. Post Intubation Chest X-ray confirms placement without pneumothorax. Patient tolerated the procedure well and there were no immediate complications. Coding CPT Codes Resuscitation - Resuscitation: 48787 Endotracheal Intubation, emergency ([id number]) [facility] [place] Codes (Charges) Resuscitation Resuscitation: 39707 Endotracheal Intubation, emergency
--- NOTE | 2021-11-16 14:28 | Procedure Note ---
Procedure Note Date of Service November 16, 2021 Note CENTRAL LINE PROCEDURE NOTE: Procedure: Central Line Placement Provider: Eyal Cedeño MD Indication: Central Drug Administration, Poor Venous Access, Multiple Lab Draws Necessary, etc. Anesthesia: 4Lidocaine 1% Site: Left subclavian Verbal consent obtained from the patient prior to the procedure. He is unable to provide written consent given the severity of his current illness and no family immediately available. Risks and benefits were discussed with patient. A time-out was completed verifying correct patient, procedure, site, positioning, and implants(s) or special equipment if applicable. Patients left clavicular area was cleansed and draped in the typical sterile fashion using Chloraprep. Landmarks were easily identified. The superficial tissue was anesthetized using 5mL of 1% lidocaine without epinephrine. After adequate anesthetization was achieved, the left subclavian vein was accessedusing an introducer needle on a syringe. Good venous blood return was maintained prior to removal of syringe from introducer needle. Using Seldinger Technique, a guide wire was advanced through the introducer needle without resistance. The introducer needle was removed. small incision was made in penetrating fashion at the guide wire insertion site utilizing an 11 blade scalpel. The dilator was advanced to the vessel without resistance. The dilator was exchanged for the triple lumen catheter which was advanced into the vessel without resistance. The guide wire was removed intact from the catheter without issue. Claves were placed on each catheter tip with confirmation of good blood flow from each lumen. Each port was easily flushed with sterile saline. The catheter was placed at the hub and sutured in place. BioPatch was applied to the catheter and a sterile Tegaderm dressing was applied over the catheter with careful attention to sterility. Patient tolerated procedure well. No immediate complications were met. Post procedure x-ray was completed, placement was appropriate and no pneumothorax was noted. Images obtained are saved for permanent record Estimated blood loss: 8 mL Coding CPT Codes Tubes, Drains, and Vasc Access - Tubes, Drains, and Vasc Access: [id number] Place catheter in vein superior or inferior vena cava ([id number]) [facility] [place]arges) Tubes, Drains, and Vasc Access Procedure 1: Tubes, Drains, and Vasc Access: [id number] Place catheter in vein superior or inferior vena cava
--- NOTE | 2021-11-16 14:29 | Procedure Note ---
Procedure Note Date of Service November 16, 2021 Note ARTERIAL LINE PROCEDURE NOTE: Procedure: Arterial Line Placement Provider: Eyal Cedeño MD Indication: Monitoring on Pressors Anesthesia: none Verbal consent obtained from the patient prior to the procedure. A time-out was completed verifying correct patient, procedure, site, positioning, and implant(s) or special equipment if applicable. Allens test was performed to ensure adequate perfusion. Patients leftwrist was prepped and draped in the usual sterile fashion. Ultrasound guidance was used to aid needle placement. A 20g Arrow arterial line was introduced into the left radialartery. Catheter was threaded, and the needle was removed with appropriate blood return. Good waveform was observed. The patient tolerated the procedure well. Blood Loss: Minimal Complications: None Coding CPT Codes Tubes, Drains, and Vasc Access - Tubes, Drains, and Vasc Access: [id number] Insertion Catheter, Artery ([id number]) [facility] [place] Codes (Charges) Tubes, Drains, and Vasc Access Procedure 1: Tubes, Drains, and Vasc Access: [id number] Insertion Catheter, Artery
--- NOTE | 2021-11-16 14:36 | Critical Care Consultation ---
Date of Consultation November 16, 2021 Assessment & Plan (1) ARDS (adult respiratory distress syndrome): (2) Pneumonia due to 2019 novel coronavirus: (3) COPD (chronic obstructive pulmonary disease): (4) Hypercapnic respiratory failure: Impression: 61-year-old male with seizure disorder, legally blind, admitted with potential drug overdose and incidentally found to be positive with COVID now with respiratory decline/ARDS physiology in the setting of structurally abnormal lungs/emphysematous changes. He is hospital day 13 currently. Recommendations: 1. Neurologic: The patient's Abilify and valproic acid be continued. We will continue sedation with fentanyl, Versed, and propofol as needed. 2. Pulmonary: ARDS post-COVID in the setting of significant COPD. PFTs are not available. CT from 11/04/2021 demonstrated significant paraseptal emphysematous changes with subpleural blebs. The patient's groundglass opacities were not dependent in nature so I do not think he would benefit from proning. If we are unable to achieve adequate oxygenation, trial of inhaled epoprostenol might be appropriate. He appears to have a healed incision over his anterior trachea consistent with prior tracheostomy although I cannot find that on his current medical record. Would favor early tracheostomy in this patient given the likelihood of prolonged mechanical ventilation. 3. Cardiovascular: Mildly hypotensive after intubation. We will continue norepinephrine as needed to maintain mean arterial pressures at or above 65. 4. Renal: ICU electrolyte replacement protocol. We will check BNP. Diuresis if elevated. 5. GI: Nutritional consult for initiation of tube feeding. Prophylaxis will be initiated. 6. Endocrine: Glycemic control per protocol. 7. Heme-onc: No current issues. Continue to follow clinically. DVT prophylaxis with Lovenox. 8. ID: Check procalcitonin and respiratory, blood and urine cultures. Hold antibiotics for now. Patient is currently on dexamethasone 6 mg a day. CRP stable around 9. Patient's overall prognosis is quite guarded at this point time. We will readdress CODE STATUS with brother once available but based on discussion with patient, he wishes to pursue aggressive intervention so we will anticipate early tracheostomy and PEG tube and consider referral to LTAC. Total of 78 minutes critical care time was spent in evaluation management stabilization of this patient exclusive of procedures. Patient is critically ill with multiorgan system failure dysfunction. History of Present Illness Attending Physician: Tate Royal MD History of Present Illness Asked by hospitalist to assist in management of this patient with profound hypoxemic respiratory failure and COVID pneumonitis. History is obtained from reviewed electronic medical record and discussion with the hospitalist. Patient was also interviewed at the bedside. The patient is a 61-year-old male who was initially admitted to the facility 11/04/2021. He initially was brought in due to concern about potential overdose due to Depakote and Abilify. Patient is legally blind and his brother apparently administers his medications. Patient was hypoxemic on evaluation in the emergency room. He tested positive for COVID. He was admitted to the hospitalist service. He was placed on dexamethasone on arrival. He was not appropriate for remdesivir and the patient declined it. The patient's clinical course has demonstrated progressive hypoxemia necessitating application of high flow and noninvasive positive pressure ventilation. I was contacted by the hospitalist today and and notified the patient had increased work of breathing and they were unable to get oxygen saturations out of the low to mid 80% range. Patient was immediately transferred to the intensive care unit. I assessed the patient on arrival. He was tachypneic. I discussion with the patient at bedside. We discussed impending respiratory failure. I advised him that based on review of his CT scan with significant structural lung disease and declining pulmonary compliance this late into the COVID illness may not be reversible. He expressed understanding and reiterates that we we should do everything to save his life. I consented the patient for intubation and mechanical ventilation, central line, arterial line, tracheostomy, and PEG tube as I advised the patient that based on his underlying structural lung disease he would be highly likely to require these interventions. I think an LTAC would be the best potential outcome for this patient at this point time. He expressed understanding and is agreement to proceed with all interventions to keep him alive as long as possible. I discussed the futility of CPR/ACLS/defibrillation in patients with this degree of ARDS and COVID. I would recommend he be changed to a DO NOT resuscitate. The patient defers to his brother who I cannot get a hold of currently Allergies Allergy/AdvReac Type Severity Reaction Status Date / Time No Known Allergies Allergy Unknown Verified 11/04/21 15:54 Home Medications Medication Instructions Recorded Confirmed Type aripiprazole 15 mg tablet 15 mg PO QAM 01/17/20 11/04/21 History divalproex 500 mg tablet,extended 1,000 mg PO QAM 09/23/20 11/05/21 History release 24 hr Patient History Medical History (Updated 11/16/21 @ 14:34 by Eyal Cedeño MD) Bipolar disorder History of repeated overdose Social History Smoking Status: Former smoker Do You Dip or Chew Tobacco: No; Hx Alcohol Use: No Hx Substance Use: No Preferred Language: Turkmen Communication Ability: Impaired Labeling Associate Required: No Beliefs That Will Affect Care: Hindu Hindu Beliefs: Christianity marital status: Single Current Living Situation: Family Current Living Situation Comment: Lives with brother who manages medication administration How many Children do You have: 0 Feels Safe at Home: Yes Safety Concerns: Feels Safe At This Time Assistive Devices: BiPap and Oxygen - Continuous Review of Systems Review of Systems: Refer to hospitalists note. Physical Exam Constitutional: + acute distress and + ill appearing Neck: trachea midline, no thyromegaly Respiratory: + respiratory distress, + labored breathing and + tachypneic Auscultation: + crackles and + wheezes Cardiovascular: RRR, no murmur, no edema Gastrointestinal (Abdomen): normal bowel sounds, soft, nontender, no hepatosplenomegaly Musculoskeletal: Extremities: extremities normal to inspection Skin: no rashes, warm and dry Neurologic: Nonfocal exam Lymphatic: no cervical lymphadenopathy Results & Data Results & Data ([facility]) Vital Signs (Past 12 Hours) Vital Signs Temp Pulse Pulse Resp BP BP BP 11/16/21 13:53 37.9 C H 94 H 28 H 140/51 L 11/16/21 13:01 37.5 C 92 H 28 H 124/49 L 11/16/21 12:00 37.7 C H 83 25 H 96/44 L 96/66 L 11/16/21 11:49 91 H 11/16/21 11:40 124/43 L 110/60 11/16/21 11:00 37.9 C H 89 32 H 137/36 L 11/16/21 10:20 84 16 11/16/21 09:18 88 28 H 11/16/21 09:02 94 H 11/16/21 08:25 84 24 11/16/21 07:41 36.9 C 86 20 99/63 L 11/16/21 04:10 36.7 C 67 18 111/69 Pulse Ox 11/16/21 13:53 90 11/16/21 13:01 94 11/16/21 12:00 92 11/16/21 11:49 11/16/21 11:40 11/16/21 11:00 87 L 11/16/21 10:20 94 11/16/21 09:18 83 L 11/16/21 09:02 85 L 11/16/21 08:25 86 L 11/16/21 07:41 97 11/16/21 04:10 87 L Critical Care Results & Data Vital Signs (Past 12 Hours) Vital Signs Temp Pulse Pulse Resp BP BP BP 11/16/21 13:53 37.9 C H 94 H 28 H 140/51 L 11/16/21 13:01 37.5 C 92 H 28 H 124/49 L 11/16/21 12:00 37.7 C H 83 25 H 96/44 L 96/66 L 11/16/21 11:49 91 H 11/16/21 11:40 124/43 L 110/60 11/16/21 11:00 37.9 C H 89 32 H 137/36 L 11/16/21 10:20 84 16 11/16/21 09:18 88 28 H 11/16/21 09:02 94 H 11/16/21 08:25 84 24 11/16/21 07:41 36.9 C 86 20 99/63 L 11/16/21 04:10 36.7 C 67 18 111/69 Pulse Ox 11/16/21 13:53 90 11/16/21 13:01 94 11/16/21 12:00 92 11/16/21 11:49 11/16/21 11:40 11/16/21 11:00 87 L 11/16/21 10:20 94 11/16/21 09:18 83 L 11/16/21 09:02 85 L 11/16/21 08:25 86 L 11/16/21 07:41 97 11/16/21 04:10 87 L Lab & Micro Results (Past 24 Hours) RBC 3.91 M/uL (4.7-6.1) L 11/16/21 WBC 9.60 K/uL (4.8-10.8) 11/16/21 Hgb 13.0 g/dL (14.0-18.0) L 11/16/21 Hct 37.6 % (42-52) L 11/16/21 MCV 96.2 fL (80-100) 11/16/21 MCH 33.2 pg (25-34) 11/16/21 MCHC 34.6 g/dL (32-36) 11/16/21 RDW Standard Deviation 45.9 fL (36.4-46.3) 11/16/21 RDW Coefficient of Variation 13.3 % (11.5-14.5) 11/16/21 Plt Count 320 K/uL (130-400) 11/16/21 MPV 9.6 fL (7.4-10.4) 11/16/21 Na 135 mmol/L (136-145) L 11/16/21 K 4.4 mmol/L (3.5-5.1) 11/16/21 Cl 102 mmol/L (98-107) 11/16/21 CO2 27 mmol/L (21-32) 11/16/21 Anion Gap 6 (3-11) 11/16/21 BUN 21 mg/dl (6-23) 11/16/21 Creatinine 0.56 mg/dl (0.6-1.4) L 11/16/21 Estimated GFR ( Amer) 128.5 ml/min 11/16/21 Estimated GFR (Non-Af Amer) 110.9 ml/min 11/16/21 BUN/Creatinine Ratio 37.5 (10-20) H 11/16/21 Glu 80 mg/dl (70-99) 11/16/21 Ca 8.5 mg/dl (8.5-10.1) 11/16/21 Calcium Level 8.5 mg/dl (8.5-10.1) 11/16/21 06:17 11/16/21 Blood Gas Barometric Pressure 729.9 mm/Hg 11/16/21 09:30 11/16/21 Arterial Blood pH 7.43 (7.35-7.45) 11/16/21 09:30 11/16/21 Arterial Blood Partial Pressure CO2 40 mmHg (35-46) 11/16/21 09:30 11/16/21 Arterial Blood Partial Pressure O2 53 mmHg (80-95) L 11/16/21 09:30 11/16/21 Arterial Blood HCO3 26 mmol/L (19-24) H 11/16/21 09:30 11/16/21 Arterial Blood Base Excess 1.5 mEq/L (-9-1.8) 11/16/21 09:30 11/16/21 Arterial Blood Oxygen Saturation 87.0 % (90-95) L 11/16/21 09:30 11/16/21 Blood Gas Oxygen Given 100% 11/16/21 09:30 11/16/21 Josr Test NA 11/16/21 11:10 11/16/21 Blood Gas Barometric Pressure 729.9 mm/Hg 11/16/21 09:30 11/16/21 Diagnostic Findings (Past 24 Hours) Chest X-Ray 11/16/21 00:00 XR chest 1V portable CLINICAL HISTORY: Covid positive. Follow-up bilateral interstitial and alveolar opacities. COMPARISON STUDY: 11/13/2021 TECHNIQUE: 1 view of the chest FINDINGS: Single frontal view of the chest demonstrates the cardiomediastinal silhouette to be within normal limits. Compared to the previous examination, there has been continued worsening of interstitial and alveolar opacities bilaterally, especially on the left side. There is no evidence for pleural effusion. There is no evidence for vascular congestion. There is no acute osseous pathology. IMPRESSION: Continued interval worsening of bilateral interstitial and alveolar opacities. ACT 112: Negative or not required by law. Electronically signed by: Tyson Bates M.D. 11/16/2021 9:00 AM Chest X-Ray 11/16/21 10:18 XR chest 1V portable CLINICAL HISTORY: intubation, central line, gastric tube placement COMPARISON STUDY: Chest CT November 04, 2021. Chest radiograph November 16, 2021 at 8:54 AM. FINDINGS: Tip of endotracheal tube is 2.6 cm above the irene. Tip of nasogastric tube is at least within the body of the stomach. Stomach is distended. Tip of left subclavian central line is within the SVC. No pneumothorax or pleural effusion. Extensive bilateral airspace opacities persist. IMPRESSION: 1. Satisfactory positioning of lines and tubes. No pneumothorax. 2. No significant change in bilateral airspace opacities. 3. Gaseous distention of the stomach. ACT 112: Negative or not required by law. Electronically signed by: Eldon Dickens M.D. 11/16/2021 11:04 AM I & O Totals 24 Hours 11/15/21 11/16/21 11/17/21 06:59 06:59 06:59 Intake Total 780 / 780 1000 / 1000 29.822 / 29.822 Output Total 1250 / 1250 1800 / 1800 Balance -470 / -470 -800 / -800 29.822 / 29.822 Cumulative 11/04/21 10:58 thru 11/16/21 12:30 Intake Total 9719.822 Output Total 73801 Balance -9730.178 RT Ventilator Mngmt (Last Documented) Ventilator Ordered Settings Ventilator Support Mode PRVC 11/16/21 10:20 Respiratory Rate 28 11/16/21 13:53 Ventilator Tidal Volume 400 11/16/21 10:20 Setting Minute Ventilation 6.4 11/16/21 10:20 Positive End Expiratory 14 11/16/21 10:20 Pressure Fraction of Inspired Oxygen 100 11/16/21 10:20 Ventilator - PT Measurements Respiratory Rate 28 Exhaled Tidal Volume 395 Minute Ventilation 6.4 Peak Inspiratory Airway 33 Pressure Plateau Pressure 31 Respiratory Cycle Inspiratory: 1:3.7 Expiratory Ratio Inspiratory Phase Time 0.60 Static Lung Compliance 23.24 Dynamic Lung Compliance 20.79 Normal Static Lung Compliance 46.00 Patient Measurements Comment Placed on vent post-intubation Coding Level of Care Code Critical Care ea addt'l 30 min Diagnoses ARDS (adult respiratory distress syndrome) J80 Pneumonia due to 2019 novel coronavirus U07.1; J12.82 COPD (chronic obstructive pulmonary disease) J44.9 Hypercapnic respiratory failure J96.92 Time Spent (min) 78
[2021-11-16] MEDS ORDERED: MIDAZOLAM HCL 1 MG/ML 2ML VIAL IV PRN (14:55)
[2021-11-16] MEDS ORDERED: ICU PROTOCOL FOR HYPERGLYCEMIA PRN (14:55)
[2021-11-16] MEDS ORDERED: MAGNESIUM HYDROXIDE SUSP 30 ML UDC PO PRN (14:55)
[2021-11-16] MEDS ORDERED: NORMOSOL-R 1,000 ML IV SCH (15:00)
[2021-11-16] MEDS: fentaNYL citrate 2,500 MCG/250 ML BAG IV SCH (15:37)
--- NOTE | 2021-11-16 16:06 | Hospitalist Progress Note ---
Date of Service November 16, 2021 Assessment & Plan (1) Drug overdose: Plan: Patient Presented after overdose on Depakote (4 tablets of 500mg) and Abilify (2 tablets) and was found to be hypoxia Less likely intentional after discussed with his brother Bean by prior hospitalist Depakote level:25>32>30 EKG showed no QTC prolongation Poison control was contacted by prior hospitalist Case discussed with psych Dr. Brito Resumed Depakote and Abilify Suicidal precautions Monitor (2) Pneumonia due to 2019 novel coronavirus: Plan: Acute respiratory failure with hypoxia/Hypercapnia COVID-19 pneumonia Adult respiratory distress syndrome H/O COPD Patient is unvaccinated Tested positive for COVID-19 on admission. -CTA chest showed no PE. Bilateral multilobar subpleural groundglass densities are compatible with viral pneumonia. Mild mediastinal and hilar adenopathy, likely reactive. Patient declined remdesivir (Patient's brother to discussed and agreed with pt decision) CRP 10>9.86 --S/P intubation on 11/16/20 Appreciate Command And Control Officer Help Vent management as per Command And Control Officer Continue dexamethasone Pulmonary Hygiene Lasix as needed Family updated this morning about worsening respiratory status and also after Intubation Overall poor prognosis Intermittent Fever Likely secondary to above Cultures negative Monitor Constipation Continue bowel regimen Pancytopenia Likely secondary to COVID-19 infection Doubt due to Depakote toxicity Pancytopenia resolved Bipolar disorder Seizure On Abilify and Depakote Elevated D-dimer Mostly due to COVID-19 CTA chest showed no PE Thrombocytopenia Platelet 107>300s Resolved DVT Px: Lovenox SQ CODE STATUS Full code for now as per family Will re-address code status again Disposition To be determined Family :Brother Bean ([phone]) Admission and Anticipated Discharge Date Admission Date: November 04, 2021 Subjective Patient is seen and examined at bedside Patient had respiratory distress this morning with oxygen saturations dropped to 80s He denies any significant cough, chest pain, nausea, abdominal pain Updated patient's brother over the phone that patient would likely need to be intubated Discussed with Command And Control Officer who kindly accepted the patient Patient will be transferred to ICU for further care CXR today showed worsening of bilateral interstitial and alveolar opacities. Review of Systems Review of Systems: All systems reviewed & are unremarkable except as noted in Subjective Physical Exam Physical Exam: Physical Exam: Vitals signs as noted above General Appearance: Ill-appearing Head: normocephalic, Atraumatic Eyes: normal inspection, EOMI Neck: supple, Trachea midline Respiratory/Chest: Decreased breath sounds, basal crackles, wheezes Cardiovascular: S1, S2, No murmur Abdomen/GI:Soft, Non tender, Bowel sounds present Extremities/Musculoskeletal:normal inspection, no edema Neurologic/Psych:AAOX3, grossly no focal neurological deficits, + legally blind Skin: normal color, warm Results & Data Results & Data ([facility]) Vital Signs (Past 12 Hours) Vital Signs Temp Pulse Pulse Resp BP BP BP 11/16/21 14:56 90 11/16/21 13:53 37.9 C H 94 H 28 H 140/51 L 11/16/21 13:01 37.5 C 92 H 28 H 124/49 L 11/16/21 12:00 37.7 C H 83 25 H 96/44 L 96/66 L 11/16/21 11:49 91 H 11/16/21 11:40 124/43 L 110/60 11/16/21 11:00 37.9 C H 89 32 H 137/36 L 11/16/21 10:20 84 16 11/16/21 09:18 88 28 H 11/16/21 09:02 94 H 11/16/21 08:25 84 24 11/16/21 07:41 36.9 C 86 20 99/63 L 11/16/21 04:10 36.7 C 67 18 111/69 Pulse Ox 11/16/21 14:56 11/16/21 13:53 90 11/16/21 13:01 94 11/16/21 12:00 92 11/16/21 11:49 11/16/21 11:40 11/16/21 11:00 87 L 11/16/21 10:20 94 11/16/21 09:18 83 L 11/16/21 09:02 85 L 11/16/21 08:25 86 L 11/16/21 07:41 97 11/16/21 04:10 87 L Laboratory Results Short CBC 11/16/21 Range/Units 06:17 WBC 9.60 (4.8-10.8) K/uL Hgb 13.0 L (14.0-18.0) g/dL Hct 37.6 L (42-52) % Plt Count 320 (130-400) K/uL BMP 11/16/21 06:17 Sodium 135 L Potassium 4.4 Chloride 102 Carbon Dioxide 27 BUN 21 Creatinine 0.56 L Glucose 80 Calcium 8.5 (1) Drug overdose Encounter type: initial encounter Injury intent: undetermined intent Qualified Code(s): T50.904A - Poisoning by unspecified drugs, medicaments and biological substances, undetermined, initial encounter
[2021-11-16] MEDS: ICU ELECTROLYTE REPLACEMENT PROTOCOL SCH (17:05)
[2021-11-16] MEDS ORDERED: EPOPROSTENOL SODIUM (GLYCINE) 1.5 MG/5 ML INH PRN (17:32)
[2021-11-16] MEDS: PEPTAMEN INTENSE VHP 1.0 CAL 1,000 ML BAG OG SCH (18:22)
[2021-11-16] MEDS: TUBE FEEDING WATER FLUSH OG SCH ×2 (18:22→19:44)
[2021-11-16] MEDS: ACETAMINOPHEN SUSP 325 MG/10.15 ML UDC PO PRN (18:36)
[2021-11-16] MEDS: SENNA 8.6 MG TAB PO SCH (19:44)
[2021-11-16] MEDS: ACETAMINOPHEN 500 MG TAB PO PRN (21:20)
[2021-11-17] MEDS: TUBE FEEDING WATER FLUSH OG SCH ×6 (01:00→21:53)
[2021-11-17 04:58] LABS: iSTAT Art Bld Gas pCO2 Correct 44 mmHg (35-46); iSTAT Art Bld Gas pH Corrected 7.388 (7.35-7.45); iSTAT Arterial Blood Gas HCO3 26 meg/L (19-24); iSTAT Arterial Blood Gas pCO2 43 mmHg (35-46); iSTAT Arterial Blood Gas pH 7.39 (7.35-7.45); iSTAT Arterial Blood Gas pO2 66 mmHg (80-95); iSTAT Arterial Blood Gas pO2 C 68; iSTAT Carbon Dioxide 28 mmol/L (24-31); iSTAT Hematocrit 37 % (42-52); iSTAT Hemoglobin 12.6 g/dl (14.0-18.0); iSTAT Potassium 4.5 mmol/L (3.3-5.0); iSTAT Site Art Line; iSTAT Sodium 134 mmol/L (135-144)
[2021-11-17] MEDS: propofoL 1,000 MG/100 ML VIAL IV SCH ×6 (05:20→21:23)
[2021-11-17 06:53] LABS: Basophils # (auto) 0.02 K/uL (0-0.2); Basophils % (auto) 0.1 %; Eosinophils # (auto) 0.04 K/uL (0-0.5); Eosinophils % (auto) 0.2 %; Hematocrit (blood only) 38.2 % (42-52); Hemoglobin 13.2 g/dL (14.0-18.0); Immature Granulocytes # (auto) 0.25 K/uL (0.00-0.02); Immature Granulocytes % (auto) 1.1 %; Lymphocytes # (auto) 1.15 K/uL (1.2-3.4); Lymphocytes % (auto) 5.1 %; Mean Corpuscular Hgb Conc 34.6 g/dL (32-36); Mean Corpuscular Volume 95.5 fL (80-100); Mean Platelet Volume 9.5 fL (7.4-10.4); Monocytes # (auto) 1.47 K/uL (0.11-0.59); Monocytes % (auto) 6.5 %; Neutrophils # (auto) 19.54 K/uL (1.4-6.5); Platelet Count 280 K/uL (130-400); RDW Coefficient of Variation 13.1 % (11.5-14.5); RDW Standard Deviation 45.6 fL (36.4-46.3); White Blood Count 22.47 K/uL (4.8-10.8)
[2021-11-17 07:04] LABS: BUN Creatinine Ratio 35.7 (10-20); Creatinine Clr Calc Pharmacy 164.6 ml/min; Est GFR (African American) 144.6 ml/min; Est GFR (Non-African American) 124.8 ml/min; Magnesium 1.7 mg/dl (1.7-2.4); Phosphorus 3.3 mg/dl (2.5-4.9); Potassium 4.5 mmol/L (3.5-5.1)
[2021-11-17] MEDS: ICU ELECTROLYTE REPLACEMENT PROTOCOL SCH ×2 (07:34→16:27)
[2021-11-17] MEDS: LANSOPRAZOLE 30 MG SOLTAB NG SCH (08:03)
[2021-11-17] MEDS: MULTI VIT W/MINERALS LIQUID 15 ML UDP PO SCH (08:03)
[2021-11-17] MEDS: ENOXAPARIN INJ 40 MG/0.4 ML SYR SQ SCH (08:04)
[2021-11-17] MEDS: ARIPiprazole 15 MG TAB PO SCH (08:07)
[2021-11-17] MEDS: NOREPINEPHRINE/D5W 8 MG/508 ML BAG IV SCH ×4 (08:08→21:10)
--- NOTE | 2021-11-17 08:09 | XRay Report ---
XR chest 1V portable CLINICAL HISTORY: Respiratory failure. COMPARISON STUDY: Chest CT November 04, 2021. Chest radiograph November 16, 2021. FINDINGS: Tip of endotracheal tube is 2.4 cm above the irene. Left subclavian central line is in hema ce. Tip of nasogastric tube is below the lower aspect of this image but at least within the proximal stomach. There is underlying emphysema. Slight progression of bilateral airspace opacities is noted. IMPRESSION: 1. Satisfactory positioning of lines and tubes. 2. Slight progression of bilateral airspace opacities. ACT 112: Negative or not required by law. Electronically signed by: Eldon Dickens M.D. 11/17/2021 8:08 AM
[2021-11-17] MEDS: ACETAMINOPHEN 500 MG TAB PO PRN (09:47)
[2021-11-17] MEDS: DIVALPROEX EXTENDED RELEASE 500 MG TAB PO SCH (10:34)
--- NOTE | 2021-11-17 11:49 | Critical Care Progress Note ---
Date of Service November 17, 2021 Assessment & Plan (1) ARDS (adult respiratory distress syndrome): (2) Pneumonia due to 2019 novel coronavirus: (3) COPD (chronic obstructive pulmonary disease): (4) Hypercapnic respiratory failure: Plan: Impression: 61-year-old male with seizure disorder, legally blind, admitted with potential drug overdose and incidentally found to be positive with COVID now with respiratory decline/ARDS physiology in the setting of structurally abnormal lungs/emphysematous changes. He is hospital day 13 currently. Neurologic: seizure disorder, TBI, Bipolar disorder, - TANNER -2 appropriate, CAM ICU unable to assess but he is remaining calm - Will change his depakote from ER to IR as he is getting it through his OGT - Sedated with veresed and fentanyl- goal as above TANNER -2 - Continue his Valproic acid 2. Pulmonary: ARDS post-COVID in the setting of significant COPD, Emphysema, - PFTs are not available. CT from 11/04/2021 demonstrated significant paraseptal emphysematous changes with subpleural blebs. - Will add albuterol inh 4 puffs through ventilator for his wheezing and emphysema - PF ratio today severe ARDS with Pao2 62 with FIo2 100%- did not respond to Flolan trial, poor candidate for proning secondary to length of disease and dependancy of his opacities. - He is double triggering the ventilator, with his spontaneous breaths- will adjust ventilator as above - Current AC/PC with PC 20, increase iTIme to decrease air trapping- follow - his VT on his breaths are 500-700 - Will likely need tracheostomy and likely lifelong ventilator support- Family to discuss this option - Sputum culture sent will add on Zosyn for likely pulmonary infection - Discontinue his steroids today 3. Cardiovascular: Hypotension Mildly hypotensive after intubation. - Likely sedation induced- We will continue norepinephrine as needed to maintain mean arterial pressures at or above 65. - No evidence of shock or other organ dysfunction 4. Renal: ICU electrolyte replacement protocol. We will check BNP. Diuresis if elevated. - BNP not elevated hold on diuresing today - Mag replace today - Calcium follow 5. GI: Nutritional consult for initiation of tube feeding. Prophylaxis with OGT PPI 6. Endocrine: Glycemic control per protocol. 7. Heme-onc: No current issues. Continue to follow clinically. DVT prophylaxis with Lovenox. 8. ID: Check procalcitonin and respiratory, blood and urine cultures. Hold antibiotics for now. Patient is currently on dexamethasone 6 mg a day. CRP stable around 9. Lines/tubes: Hilton- replaced 11/17/21, Central line, arterial line, OGT, ETT, PIV- continue use of all lines and tubes Patient's overall prognosis is quite guarded at this point time. We did address CODE STATUS with the brother today and with his severity of illness and with already poor outcome likely- he decided to change his code status to DNR if he was to suffer respiratory or cardiac arrest. As above, he will discuss with the children and let them assist in deciding with palliative extubation or proceeding with tracheostomy and PEG placement. Although he is sure that his brother would not want to have to back to a rehab or nursing facility, but understands this is the true reality to his brother's situation. He also understands kandi the ventilator is keeping his brother alive right now and that if he were to be removed from the vent that he would . We also let him know that if that were his decision we could keep his brother comfortable. Total of 50 minutes critical care time was spent in evaluation management stabilization of this patient exclusive of procedures. Patient is critically ill with multiorgan system failure dysfunction. Admission and Anticipated Discharge Date Admission Date: November 04, 2021 Supervising Physician Co-Signing Physician Notes Patient seen and examined. EMR reviewed. Discussed on multidisciplinary rounds and with bedside critical care nurse. Reviewed with critical care SIOMARA and agree with assessment plan as noted. We met with the patient's brother who is his medical proxy decision-maker. We reviewed the case and discussed tracheostomy PEG tube placement and long-term acute care. The patient's brother is quite adamant that the patient would never want to be in a care facility previously and if he is unable to return back home to his prior functional status, he would not want to continue with the current therapy. We reviewed that the patient initially had wanted to do everything to keep him alive. The patient's brother states that this was a decision that was obviously made under duress and that the patient and he have had multiple decisions about long term facilities and the patient would never want to return back to a long term facility. I advised the patient's brother that best case scenario would be that the patient survives this hospitalization enough to get to an LTAC. He again reiterates that this is not consistent with his brothers previously expressed wishes and would be a quality of life that he would find unacceptable. We discussed transition to comfort care measures. He is taking it under advisement and will discuss with the patient's children. We will try and reconvene tomorrow to revisit direction of therapy. We did discuss poor outcomes in patients who are this ill who undergo CPR or defibrillation and the patient's brother is in agreement to change his CODE STATUS to no CPR/defibrillation. Unfortunately the patient has failed therapies including trials of inhaled epoprostenol. He is not a candidate for proning given the fact that he does not have dependent disease and I do not think that proning would change his VQ mismatch. His prognosis is extremely guarded at this point time Subjective Patient rounded on with multidisciplinary team and at the bedside. The patient is 61 YOM that was originally admitted for overdose concern and subsequently found to have COVID. intubation Day #2 Hospital day #13 for hypoxic respiratory failure from COVID 19 pneumonia. Patient also with severe emphysema. Patient remains requiring high levels of PEEP and Fio2 to maintain [id number]%. Patient did not improve with Flolan, he is air trapping to double and double triggering the ventilator, will adjust him to ACPC and lengthen out his i-time. Discussed with the brother we came to the hospital today in regards to trach, peg, and rehab. See below for discussion. The patient is still requiring to high levels of PEEP or FIo2 at this time to perform bedside Trach. His blood gas this morning is with a PF ratio of 66 which is severe ARDS. He has been febrile overnight with increase in his WBC and NLR , sputum culture, UA, and blood cultures sent. Will repeat MRSA swab and start on empiric Zosyn for pulmonary coverage. Will perform hilton catheter exchange as well. Will discontinue his steroids at this time as not providing clinical benefit in regards to decreasing his ventilator requirements. The brother is sure that he would not want to go back to a facility as this made the patient very sad and angry when he was in a rehab/nursing facility earlier in his life for recovery from a TBI. He is going to discuss the option with the patient's kids as he understands that he currently needs the ventilator to live and will likely need it in the senior care recovery. He is leaning towards comfort care for his brother, but as above will discuss with his family. We will continue to follow along. Review of Systems Review of Systems: Unable to perform secondary to intubation and mechanical ventilation Physical Exam Physical Exam: Physical Exam: General Appearance: Ill-appearing Head: normocephalic, Atraumatic Eyes: normal inspection, EOMI Neck: supple, Trachea midline, old tracheostomy scar Respiratory/Chest: Decreased breath sounds, basal crackles, expiratory wheezes Cardiovascular: S1, S2, No murmur Abdomen/GI:Soft, Non tender, Bowel sounds present, OGT present Extremities/Musculoskeletal:normal inspection, no edema Neurologic/Psych: Patient sedated with TANNER -2, he does open his eyes to voice and appears comfortable, he is legally blind Skin: normal color, warm Results & Data Results & Data ([facility]) Vital Signs (Past 12 Hours) Vital Signs Temp Pulse Resp BP Pulse Ox 11/17/21 11:09 77 27 H 93 11/17/21 09:30 38.0 C H 80 14 92 11/17/21 09:00 37.8 C H 78 13 103/65 91 11/17/21 08:37 76 25 H 91 11/17/21 08:00 37.7 C H 75 18 102/68 91 11/17/21 07:30 37.6 C H 74 15 91 11/17/21 06:00 37.4 C 74 21 108/67 92 11/17/21 05:00 37.4 C 73 19 106/69 90 11/17/21 04:00 37.4 C 73 23 106/70 91 11/17/21 03:00 37.4 C 72 24 113/72 91 11/17/21 02:44 70 24 92 11/17/21 02:05 70 24 137/62 92 11/17/21 01:00 37.5 C 74 21 113/72 92 11/17/21 00:00 37.9 C H 78 22 109/81 91 Laboratory Results Abnormal lab results 11/17/21 11/17/21 11/17/21 Range/Units 04:23 06:11 06:11 WBC 22.47 H D (4.8-10.8) K/uL RBC 4.00 L (4.7-6.1) M/uL Hgb 13.2 L (14.0-18.0) g/dL POC Hgb 12.6 L (14.0-18.0) g/dl Hct 38.2 L (42-52) % POC Hct 37 L (42-52) % Neut # (Auto) 19.54 H (1.4-6.5) K/uL Lymph # (Auto) 1.15 L (1.2-3.4) K/uL Charles # (Auto) 1.47 H (0.11-0.59) K/uL Immature Gran # (Auto) 0.25 H (0.00-0.02) K/uL POC pO2 66 L (80-95) mmHg POC HCO3 26 H (19-24) adri/L POC Base Excess 2.0 H (-9-1.8) adri/L POC Sodium 134 L (135-144) mmol/L Sodium 132 L (136-145) mmol/L Creatinine 0.42 L (0.6-1.4) mg/dl BUN/Creatinine Ratio 35.7 H (10-20) Glucose 112 H (70-99) mg/dl POC Glucose (other) (70-99) mg/dl Calcium 8.0 L (8.5-10.1) mg/dl Ur Leukocyte Esterase (Negative) Urine WBC (Auto) (0-5) /hpf Urine RBC (Auto) (0-4) /hpf U Epithel Cells (Auto) (0-5) /lpf Urine Bacteria (Auto) (Negative) 11/17/21 11/17/21 Range/Units 07:51 Unknown WBC (4.8-10.8) K/uL RBC (4.7-6.1) M/uL Hgb (14.0-18.0) g/dL POC Hgb (14.0-18.0) g/dl Hct (42-52) % POC Hct (42-52) % Neut # (Auto) (1.4-6.5) K/uL Lymph # (Auto) (1.2-3.4) K/uL Charles # (Auto) (0.11-0.59) K/uL Immature Gran # (Auto) (0.00-0.02) K/uL POC pO2 (80-95) mmHg POC HCO3 (19-24) adri/L POC Base Excess (-9-1.8) adri/L POC Sodium (135-144) mmol/L Sodium (136-145) mmol/L Creatinine (0.6-1.4) mg/dl BUN/Creatinine Ratio (10-20) Glucose (70-99) mg/dl POC Glucose (other) 116 H (70-99) mg/dl Calcium (8.5-10.1) mg/dl Ur Leukocyte Esterase 1+ H (Negative) Urine WBC (Auto) 10-30 H (0-5) /hpf Urine RBC (Auto) 5-10 H (0-4) /hpf U Epithel Cells (Auto) 10-20 H (0-5) /lpf Urine Bacteria (Auto) 1+ H (Negative) Diagnostic Findings Chest X-Ray 11/17/21 07:00 XR chest 1V portable CLINICAL HISTORY: Respiratory failure. COMPARISON STUDY: Chest CT November 04, 2021. Chest radiograph November 16, 2021. FINDINGS: Tip of endotracheal tube is 2.4 cm above the irene. Left subclavian central line is in place. Tip of nasogastric tube is below the lower aspect of this image but at least within the proximal stomach. There is underlying emphysema. Slight progression of bilateral airspace opacities is noted. IMPRESSION: 1. Satisfactory positioning of lines and tubes. 2. Slight progression of bilateral airspace opacities. ACT 112: Negative or not required by law. Electronically signed by: Eldon Dickens M.D. 11/17/2021 8:08 AM Coding Level of Care Code Critical Care 1st 30-74 mins Diagnoses ARDS (adult respiratory distress syndrome) J80 Pneumonia due to 2019 novel coronavirus U07.1; J12.82 COPD (chronic obstructive pulmonary disease) J44.9 Hypercapnic respiratory failure J96.92
[2021-11-17] MEDS ORDERED: VANCOMYCIN CONSULT ACTIVE PRN (11:50)
[2021-11-17] MEDS ORDERED: PIPERACILL/TAZOBAC CONSULT ACTIVE PRN (11:50)
[2021-11-17] MEDS ORDERED: VANCOMYCIN HCL 1,750 MG in SODIUM CHLORIDE 0.9% 500 ML IV ONE (12:30)
[2021-11-17] MEDS ORDERED: PIPERACILLIN/TAZOBACTAM 4.5 GM in DEXTROSE 5% 100 ML IV ONE (12:30)
[2021-11-17] MEDS ORDERED: PIPERACILLIN/TAZOBACTAM 3.375 GM in DEXTROSE 5% 100 ML IV ONE (12:30)
--- NOTE | 2021-11-17 13:07 | Pharmacy Report ---
Pharmacy Vanc AUC Short Note - Date of Service November 17, 2021 - Assessment & Plan Assessment * Mr More is a 61 year old M receiving Vanc/Zosyn for treatment of pneumonia. * Pertinent microbiologic data includes: Negative MRSA Nasal Swab x2, COVID +, BCx x2 from 11/08 negative, BCx x2 from 11/16 pending, UCx pending * Pt with marked leukocytosis this morning (WBC 9.6 --> 22.5K). Pt has been febrile. * Other PMH includes COPD, hx of seizures, legally blind Plan Vancomycin * AUC/ZOE is the preferred PK/PD target for vancomycin * AUC guided dosing is effective and associated with decreased risk of nephrotoxicity compared to traditional trough targets * Vancomycin 1750mg (~24mg/kg) IV x1 dose, then * Vancomycin 1000mg IV q8h, dosing guided by [employer] software. * This regimen is expected to produce a trough level of 17.5 mcg/mL, and is predicted to achieve target AUC/ZOE of 400-600 mg/L.hr. It may be associated with a 13% risk of nephrotoxicity Zosyn 4.5gm IV x1 dose, then 4.5gm IV q8h Pharmacy will continue to follow and will adjust dose/frequency as necessary. Thank you.
[2021-11-17 13:20] LABS: Appearance Urine Clear (Clear); Bacteria Urine Automated 1+ (Negative); Bilirubin Urine Negative (Negative); Blood Urine Negative (Negative); Color Urine Dark Yellow; Glucose Urine UA Negative (Negative); Ketones Urine Negative (Negative); Leukocyte Esterase Urine 1+ (Negative); Nitrite Urine Negative (Negative); Protein Urine Negative (Negative); Urobilinogen Urine Negative (Negative); pH Urine 6.5 (4.5-7.5)
[2021-11-17] MEDS: dexAMETHasone 6 MG in SYRINGE 0 ML IV SCH (13:35)
[2021-11-17] MEDS ORDERED: ALBUTEROL HFA 8 GM INHALER INH PRN (13:56)
[2021-11-17] MEDS ORDERED: ALBUTEROL 0.083% NEBU SOLN 3 ML VIAL NEB PRN (15:20)
--- NOTE | 2021-11-17 15:53 | Hospitalist Progress Note ---
Date of Service November 17, 2021 Assessment & Plan (1) Drug overdose: Plan: Patient Presented after overdose on Depakote (4 tablets of 500mg) and Abilify (2 tablets) and was found to be hypoxia Less likely intentional after discussed with his brother Bean by prior hospitalist Depakote level:25>32>30 EKG showed no QTC prolongation Poison control was contacted by prior hospitalist Case discussed with psych Dr. Brito Resumed Depakote and Abilify Suicidal precautions Monitor (2) Pneumonia due to 2019 novel coronavirus: Plan: Acute respiratory failure with hypoxia/Hypercapnia COVID-19 pneumonia Adult respiratory distress syndrome Septic Shock H/O COPD Patient is unvaccinated Tested positive for COVID-19 on admission. -CTA chest showed no PE. Bilateral multilobar subpleural groundglass densities are compatible with viral pneumonia. Mild mediastinal and hilar adenopathy, likely reactive. Patient declined remdesivir (Patient's brother to discussed and agreed with pt decision) CRP 10>9.86 --S/P intubation on 11/16/20 Appreciate Finishing Inspector Help Vent management as per Finishing Inspector Continue dexamethasone Pulmonary Hygiene Lasix as needed Overall poor prognosis Febrile today Empirically on Zosyn Cultures pending Currently on 16 PEEP, 100% FiO2 On pressors Constipation Continue bowel regimen Pancytopenia Likely secondary to COVID-19 infection Doubt due to Depakote toxicity Pancytopenia resolved Bipolar disorder Seizure On Abilify and Depakote Elevated D-dimer Mostly due to COVID-19 CTA chest showed no PE Thrombocytopenia Platelet 107>300s Resolved DVT Px: Lovenox SQ CODE STATUS DNR Disposition To be determined Family :Brother Bean ([phone]) Admission and Anticipated Discharge Date Admission Date: November 04, 2021 Subjective Patient is seen and examined at bedside Currently sedated and elevated On 16 PEEP, 100% FiO2 CODE STATUS changed to DNR Febrile today On tube feeds Poor prognosis Review of Systems Review of Systems: Unobtainable due to endotracheal tube Physical Exam Physical Exam: Physical Exam: Vitals signs as noted above General Appearance: Ill-appearing, sedated and Intubated Head: normocephalic, Atraumatic Eyes: normal inspection, EOMI Neck: supple, Trachea midline Respiratory/Chest: Decreased breath sounds, basal crackles, wheezes Cardiovascular: S1, S2, No murmur Abdomen/GI:Soft, Non tender, Bowel sounds present Extremities/Musculoskeletal:normal inspection, no edema Neurologic/Psych:+ legally blind, sedated and Intubated Skin: normal color, warm Results & Data Results & Data ([facility]) Vital Signs (Past 12 Hours) Vital Signs Temp Pulse Resp BP Pulse Ox 11/17/21 14:57 101 H 30 H 87 L 11/17/21 11:09 77 27 H 93 11/17/21 09:30 38.0 C H 80 14 92 11/17/21 09:00 37.8 C H 78 13 103/65 91 11/17/21 08:37 76 25 H 91 11/17/21 08:00 37.7 C H 75 18 102/68 91 11/17/21 07:30 37.6 C H 74 15 91 11/17/21 06:00 37.4 C 74 21 108/67 92 11/17/21 05:00 37.4 C 73 19 106/69 90 11/17/21 04:00 37.4 C 73 23 106/70 91 Laboratory Results Short CBC 11/17/21 Range/Units 06:11 WBC 22.47 H D (4.8-10.8) K/uL Hgb 13.2 L (14.0-18.0) g/dL Hct 38.2 L (42-52) % Plt Count 280 (130-400) K/uL BMP 11/17/21 06:11 Sodium 132 L Potassium 4.5 Chloride 102 Carbon Dioxide 24 BUN 15 Creatinine 0.42 L Glucose 112 H Calcium 8.0 L Urine 11/17/21 Range/Units Unknown Urine Color Dark Yellow Urine Appearance Clear (Clear) Urine pH 6.5 (4.5-7.5) Ur Specific [place] 1.020 (1.000-1.030) Urine Protein Negative (Negative) Urine Glucose (UA) Negative (Negative) (1) Drug overdose Encounter type: initial encounter Injury intent: undetermined intent Qualified Code(s): T50.904A - Poisoning by unspecified drugs, medicaments and biological substances, undetermined, initial encounter
[2021-11-17] MEDS: ACETAMINOPHEN SUSP 325 MG/10.15 ML UDC PO PRN (16:32)
[2021-11-17] MEDS: PIPERACILLIN/TAZOBACTAM 4.5 GM in DEXTROSE 5% 100 ML IV SCH (16:42)
[2021-11-17] MEDS ORDERED: STAT IV Infusion **Titration per Protocol STA ×2 (17:27→17:32)
[2021-11-17] MEDS ORDERED: VECURONIUM BROMIDE 10 MG VIAL IV STA (17:32)
--- NOTE | 2021-11-17 17:38 | XRay Report ---
XR chest 1V portable at 4:46 PM CLINICAL HISTORY: worsening hypoxia. Follow-up airspace opacities COMPARISON STUDY: 11/17/2021 at 6:51 AM TECHNIQUE: 1 view of the chest FINDINGS: Single frontal view of the chest demonstrates the cardiomediastinal silhouette to be within normal li mits. Tubes and catheters are unchanged. Compared to the previous examination, there has been signifi cant interval worsening of interstitial and alveolar opacities, left greater than right. The findings are most characteristic of worsening Covid pneumonia. There is no evidence for pleural effusion. The re is no evidence for vascular congestion. There is no acute osseous pathology. IMPRESSION: Interval increase in bilateral interstitial and alveolar opacities, left greater than rig ht. Findings are characteristic of worsening Covid pneumonia. ACT 112: Negative or not required by law. Electronically signed by: Tyson Bates M.D. 11/17/2021 5:36 PM
[2021-11-17] MEDS ORDERED: VASOPRESSIN 20 UNITS in 0.9 % SODIUM CHLORIDE 100 ML IV SCH (17:45)
--- NOTE | 2021-11-17 17:53 | Communication Note ---
Date of Service: November 17, 2021 Called to patient bedside for sustained SPO2 76-78 % with increasing temperature to now 40 degrees Celsius and associated hypotension. CXR was performed revealing no pneumothorax but continued worsening of bilateral opacities. Patient with evidence of continued air trapping on his vent as well. ABG also reveals worsening of his Pa02 now in the 50s. Will change his vent mode and support to where he is able synch up with the ventilator as well as continue to try and support his oxygenation, will hold on paralytics at this time as his BP and SPO2 have increased with mode switch, however this is likely going to be short benefit and will likely need a bolus dose of NMB later on. He also likely exhibiting signs of sepsis now as MAPS remain <65 with increasing Levophed. Antibiotics were added today, and will now add on second vasopressor agent. With his fever this is also likely contributing to worsening of his PaO2. Will call and update family on patient clinical change. Coding Level of Care Code None
[2021-11-17 18:07] LABS: iSTAT Art Bld Gas pCO2 Correct 53 mmHg (35-46); iSTAT Art Bld Gas pH Corrected 7.288 (7.35-7.45); iSTAT Arterial Blood Gas HCO3 25 meg/L (19-24); iSTAT Arterial Blood Gas pCO2 47 mmHg (35-46); iSTAT Arterial Blood Gas pH 7.33 (7.35-7.45); iSTAT Arterial Blood Gas pO2 41 mmHg (80-95); iSTAT Arterial Blood Gas pO2 C 51; iSTAT Carbon Dioxide 26 mmol/L (24-31); iSTAT FiO2 100 %; iSTAT Hematocrit 44 % (42-52); iSTAT Potassium 4.3 mmol/L (3.3-5.0); iSTAT Site Art Line; iSTAT Sodium 134 mmol/L (135-144)
[2021-11-17] MEDS: VASOPRESSIN 20 UNITS in DEXTROSE 5% 100 ML IV SCH (18:10)
[2021-11-17] MEDS ORDERED: VECURONIUM BROMIDE 10 MG VIAL IV ONE (20:03)
[2021-11-17] MEDS: fentaNYL citrate 2,500 MCG/250 ML BAG IV SCH (20:36)
[2021-11-17] MEDS ORDERED: VANCOMYCIN HCL 1,000 MG in SODIUM CHLORIDE 0.9% 250 ML IV SCH (22:00)
[2021-11-17] MEDS: SENNA 8.6 MG TAB PO SCH (22:07)
[2021-11-17] MEDS: VALPROIC ACID SOLN 500 MG/10 ML UDC PO SCH (22:08)
[2021-11-17] MEDS: PEPTAMEN INTENSE VHP 1.0 CAL 1,000 ML BAG OG SCH (23:32)
[2021-11-18] MEDS: VASOPRESSIN 20 UNITS in DEXTROSE 5% 100 ML IV SCH ×3 (00:13→15:12)
[2021-11-18] MEDS: NOREPINEPHRINE/D5W 8 MG/508 ML BAG IV SCH ×6 (01:03→18:40)
[2021-11-18] MEDS: propofoL 1,000 MG/100 ML VIAL IV SCH ×4 (01:03→18:40)
[2021-11-18] MEDS: TUBE FEEDING WATER FLUSH OG SCH ×5 (02:44→16:53)
[2021-11-18] MEDS: PIPERACILLIN/TAZOBACTAM 4.5 GM in DEXTROSE 5% 100 ML IV SCH ×3 (02:45→17:54)
[2021-11-18 03:52] LABS: iSTAT Art Bld Gas pCO2 Correct 79 mmHg (35-46); iSTAT Art Bld Gas pH Corrected 7.086 (7.35-7.45); iSTAT Arterial Blood Gas HCO3 24 meg/L (19-24); iSTAT Arterial Blood Gas pCO2 83 mmHg (35-46); iSTAT Arterial Blood Gas pH 7.07 (7.35-7.45); iSTAT Arterial Blood Gas pO2 55 mmHg (80-95); iSTAT Arterial Blood Gas pO2 C 51; iSTAT Carbon Dioxide 27 mmol/L (24-31); iSTAT FiO2 100 %; iSTAT Hematocrit 44 % (42-52); iSTAT Potassium 4.2 mmol/L (3.3-5.0); iSTAT Site Art Line; iSTAT Sodium 127 mmol/L (135-144)
[2021-11-18] MEDS: fentaNYL citrate 2,500 MCG/250 ML BAG IV SCH ×2 (04:56→15:12)
[2021-11-18 05:27] LABS: iSTAT Art Bld Gas pCO2 Correct 77 mmHg (35-46); iSTAT Art Bld Gas pH Corrected 7.105 (7.35-7.45); iSTAT Arterial Blood Gas HCO3 25 meg/L (19-24); iSTAT Arterial Blood Gas pCO2 79 mmHg (35-46); iSTAT Arterial Blood Gas pO2 < 32 mmHg (80-95); iSTAT Arterial Blood Gas pO2 C 30; iSTAT Carbon Dioxide 27 mmol/L (24-31); iSTAT FiO2 100 %; iSTAT Hematocrit 44 % (42-52); iSTAT Potassium 4.5 mmol/L (3.3-5.0); iSTAT Site Art Line; iSTAT Sodium 126 mmol/L (135-144)
[2021-11-18 07:10] LABS: iSTAT Allen Test Pass; iSTAT Art Bld Gas pCO2 Correct 90 mmHg (35-46); iSTAT Art Bld Gas pH Corrected 7.045 (7.35-7.45); iSTAT Arterial Blood Gas HCO3 25 meg/L (19-24); iSTAT Arterial Blood Gas pCO2 91 mmHg (35-46); iSTAT Arterial Blood Gas pH 7.04 (7.35-7.45); iSTAT Arterial Blood Gas pO2 65 mmHg (80-95); iSTAT Arterial Blood Gas pO2 C 63; iSTAT Carbon Dioxide 27 mmol/L (24-31); iSTAT FiO2 100 %; iSTAT Hematocrit 43 % (42-52); iSTAT Hemoglobin 14.6 g/dl (14.0-18.0); iSTAT Potassium 4.6 mmol/L (3.3-5.0); iSTAT Site Art Line; iSTAT Sodium 127 mmol/L (135-144)
[2021-11-18] MEDS: LANSOPRAZOLE 30 MG SOLTAB NG SCH (07:59)
[2021-11-18] MEDS: ENOXAPARIN INJ 40 MG/0.4 ML SYR SQ SCH (07:59)
[2021-11-18] MEDS: ARIPiprazole 15 MG TAB PO SCH (07:59)
[2021-11-18] MEDS: MULTI VIT W/MINERALS LIQUID 15 ML UDP PO SCH (07:59)
[2021-11-18] MEDS: VALPROIC ACID SOLN 500 MG/10 ML UDC PO SCH (07:59)
--- NOTE | 2021-11-18 08:05 | XRay Report ---
XR chest 1V portable CLINICAL HISTORY: Respiratory failure. COMPARISON STUDY: Chest radiograph November 17, 2021. FINDINGS: Tip of endotracheal tube is 5.4 cm above the irene. Left subclavian central line remains i n place. Tip of nasogastric tube projects over the distal stomach or proximal duodenum. No pneumothor ax is present. There is a small left pleural effusion. Extensive bilateral airspace opacities, greate r within the left lung, are similar to prior exam. There is underlying emphysema. IMPRESSION: 1. No significant change in extensive bilateral airspace opacities. 2. Satisfactory positioning of lines and tubes. 3. Small left pleural effusion. ACT 112: Negative or not required by law. Electronically signed by: Eldon Dickens M.D. 11/18/2021 8:04 AM
[2021-11-18 08:09] LABS: Hematocrit (blood only) 42.4 % (42-52); Hemoglobin 13.8 g/dL (14.0-18.0); Mean Corpuscular Hemoglobin 32.2 pg (25-34); Mean Corpuscular Hgb Conc 32.5 g/dL (32-36); Mean Corpuscular Volume 99.1 fL (80-100); Mean Platelet Volume 10.2 fL (7.4-10.4); Platelet Count 289 K/uL (130-400); RDW Coefficient of Variation 13.3 % (11.5-14.5); RDW Standard Deviation 48.2 fL (36.4-46.3); Red Blood Count 4.28 M/uL (4.7-6.1); White Blood Count 34.18 K/uL (4.8-10.8)
[2021-11-18 08:50] LABS: BUN Creatinine Ratio 18.1 (10-20); Calcium 7.6 mg/dl (8.5-10.1); Est GFR (African American) 59.9 ml/min; Est GFR (Non-African American) 51.7 ml/min; Magnesium 1.7 mg/dl (1.7-2.4); Potassium 4.5 mmol/L (3.5-5.1)
[2021-11-18 08:55] LABS: Basophils # (auto) 0.05 K/uL (0-0.2); Basophils % (auto) 0.1 %; Eosinophils # (auto) 0.01 K/uL (0-0.5); Immature Granulocytes % (auto) 1.5 %; Lymphocytes # (auto) 1.39 K/uL (1.2-3.4); Lymphocytes % (auto) 4.1 %; Monocytes # (auto) 2.89 K/uL (0.11-0.59); Monocytes % (auto) 8.5 %; Neutrophils # (auto) 29.34 K/uL (1.4-6.5); Neutrophils % (auto) 85.8 %
--- NOTE | 2021-11-18 09:03 | Critical Care Progress Note ---
Date of Service November 18, 2021 Assessment & Plan (1) ARDS (adult respiratory distress syndrome): (2) Pneumonia due to 2019 novel coronavirus: (3) COPD (chronic obstructive pulmonary disease): (4) Hypercapnic respiratory failure: (5) Septic shock: Plan: Neurologic: seizure disorder, TBI, Bipolar disorder, Sedated for mechanical ventilation - TANNER -3 appropriate, CAM ICU unable to assess but he is remaining calm - depakote from ER to IR as he is getting it through his OGT - Sedated with propofol and fentanyl- and bolus dosing of NMB - Continue his Valproic acid 2. Pulmonary: ARDS post-COVID in the setting of significant COPD, Emphysema, Respirtory acidosis - PFTs are not available. CT from 11/04/2021 demonstrated significant paraseptal emphysematous changes with subpleural blebs. - Will add albuterol nebs puffs through ventilator for his wheezing and emphysema - PF ratio today severe ARDS with Pao2 74 with FIo2 100%- did not respond to Flolan trial, poor candidate for proning secondary to length of disease and dependancy of his opacities. - H Current AC/PC with PC 25, increase iTIme (1.3) to decrease air trapping- follow - his VT on his breaths are 300-400 - Pharmacological paralyzed prn- 1 dose overnight - Sputum culture sent will add on Zosyn for likely pulmonary infection 3. Cardiovascular: Hypotension, Septic shock - Continue to evaluate for source- resend blood cultures today., yobani changed yesterday- urine culture pending - Vasopressors x2 (levophed/vasopressin) maintain map >65 - Now with evidence of organ dysfunction 4. Renal: ICU electrolyte replacement protocol. We will check BNP. Diuresis if elevated. - Worsening renal function in the setting of septic shock - Acidosis which is primarly respiratory- increase his VT, PH h7.10- recheck following ventilator adjustments. If no improvement may need Hco3 - Mag replace today - Calcium follow 5. GI: Nutritional consult for initiation of tube feeding. Prophylaxis with OGT PPI 6. Endocrine: Glycemic control per protocol. 7. Heme-onc: No current issues. Continue to follow clinically. DVT prophylaxis with Lovenox. 8. ID: Check procalcitonin and respiratory, blood and urine cultures. - CRP >30 today with PCT >222 - WBC increased to 34 - Zosyn day # 2, Levaquin Day 1 Lines/tubes: Aburto- replaced 11/17/21, Central line, arterial line, OGT, ETT, PIV- continue use of all lines and tubes Patient's overall prognosis is critical and life threatening. Patient is critically ill with multiorgan system failure dysfunction. The brother is unde rstandable of this as well as his son. Continue supportive care. Total of 50 minutes critical care time was spent in evaluation management stabilization of this patient exclusive of procedures. Admission and Anticipated Discharge Date Admission Date: November 04, 2021 Supervising Physician Co-Signing Physician Notes Patient seen and examined. EMR reviewed. Discussed with bedside nurse as well as with critical care SIOMARA.. Overnight events reviewed with critical care [facility]. The patient is clinically declining. We are now unable to oxygenate or ventilate him. He remains hypotensive on pressors. He is febrile and likely secondarily infected. Has been initiated on antibiotics. He is optimized and on full ventilatory support at this point time with oxygen saturations that are barely acceptable. I do not think this is a salvageable situation given his underlying structural lung disease. He is not a candidate for additional therapies and is failed inhaled prostacyclin. The geographic location of his infiltrates would not make proning an option for him. I think the patient is actively dying at this point in time. Family is in route. Would favor termination of resuscitative efforts as I think it is unlikely that the patient is going to survive this current illness. Will await arrival of family. Subjective Patient rounded on with multidisciplinary team and at the bedside. The patient is 61 YOM that was originally admitted for overdose concern and subsequently found to have COVID. intubation Day #3 Hospital day #14 for hypoxic respiratory failure from COVID 19 pneumonia. Patient also with severe emphysema, Patient developed septic shock on 11/17 and was started on Zosyn although cultures without growth,- urine is being re-incubated. 11/18/21 his WBC up to 34 and PCT >200, added on Levaquin to therapy. Patient remains requiring high levels of PEEP and Fio2 to maintain [id number] Patient did not improve with Flolan, he is acidotic and hypercarbic this morning. Placed back on AC/PC with increase in his PC to obtain VT >400. The patient is still requiring to high levels of PEEP or FIo2 and remained severely hypoxic last night requiring NMB, this has improved his oxygenation. He remains crticially ill and showing evidence of organ dysfuncntion this morning. Family was able to visit last night with brother and son. Brother is waiting to hear back from one other family member in regards to supportive care. We discussed his evolution of his septic shock and ARDS this morning. He understands the severity of his illness and for now continue to support and remain DNR. Review of Systems Review of Systems: Unable to perform Physical Exam Physical Exam: Physical Exam: General Appearance: Ill-appearing Head: normocephalic, Atraumatic Eyes: normal inspection, EOMI Neck: supple, Trachea midline, old tracheostomy scar Respiratory/Chest: Decreased breath sounds, basal crackles, expiratory wheezes Cardiovascular: S1, S2, No murmur, skin cool extremities, centrally warm Abdomen/GI:Soft, Non tender, Bowel sounds present, OGT present Extremities/Musculoskeletal:normal inspection, no edema Neurologic/Psych: Patient sedated with TANNER -3, he is legally blind Skin: normal color, warm Results & Data Results & Data ([place]) Vital Signs (Past 12 Hours) Vital Signs Temp Pulse Resp BP Pulse Ox 11/18/21 08:17 90 31 H 88 L 11/18/21 06:35 36.7 C 91 H 27 H 90/66 L 90 11/18/21 06:30 36.7 C 90 28 H 100/61 90 11/18/21 06:25 36.7 C 90 33 H 83/67 L 91 11/18/21 06:20 36.7 C 91 H 89/69 L 92 11/18/21 06:15 36.7 C 90 24 96/67 L 92 11/18/21 06:10 36.7 C 90 30 H 89/74 L 91 11/18/21 06:05 36.7 C 89 28 H 88/65 L 91 11/18/21 06:00 36.7 C 87 91/61 L 90 11/18/21 05:55 36.7 C 86 87/62 L 89 L 11/18/21 05:50 36.7 C 90 27 H 64/46 L 86 L 11/18/21 05:45 36.7 C 88 31 H 60/47 L 84 L 11/18/21 05:40 36.6 C 88 27 H 63/43 L 85 L 11/18/21 05:35 36.6 C 90 77/57 L 87 L 11/18/21 05:30 36.6 C 89 26 H 76/56 L 83 L 11/18/21 05:26 36.6 C 87 28 H 72/52 L 83 L 11/18/21 05:20 36.5 C 88 31 H 84 L 11/18/21 05:15 36.5 C 87 28 H 84/63 L 85 L 11/18/21 05:13 36.5 C 88 27 H 77/55 L 85 L 11/18/21 05:10 36.5 C 87 28 H 85 L 11/18/21 05:00 36.5 C 88 79/63 L 84 L 11/18/21 04:55 36.5 C 88 28 H 77/56 L 84 L 11/18/21 04:50 36.4 C L 88 28 H 84/58 L 85 L 11/18/21 04:45 36.4 C L 89 27 H 85/62 L 84 L 11/18/21 04:40 36.4 C L 89 28 H 91/62 L 84 L 11/18/21 04:35 36.5 C 90 30 H 73/62 L 83 L 11/18/21 03:35 92 H 22 81 L 11/18/21 02:00 36.3 C L 99 H 23 82/62 L 79 L 11/18/21 01:55 36.4 C L 100 H 20 89/62 L 79 L 11/18/21 01:50 36.6 C 101 H 20 88/65 L 80 L 11/18/21 01:45 36.7 C 101 H 20 84/69 L 78 L 11/18/21 01:40 36.8 C 102 H 20 76/57 L 81 L 11/18/21 01:35 36.8 C 101 H 92/67 L 79 L 11/18/21 01:30 36.9 C 102 H 22 79/68 L 78 L 11/18/21 01:26 36.9 C 11/18/21 01:25 104 H 21 79/63 L 78 L 11/18/21 01:20 104 H 20 88/69 L 76 L 11/18/21 01:15 106 H 20 83/68 L 77 L 11/18/21 01:12 37.2 C 11/18/21 01:10 106 H 20 83/64 L 78 L 11/18/21 01:05 108 H 21 84/64 L 77 L 11/18/21 01:00 113 H 20 72/54 L 75 L 11/18/21 00:55 114 H 21 81/50 L 73 L 11/18/21 00:50 114 H 21 76/53 L 76 L 11/18/21 00:45 113 H 20 81/59 L 76 L 11/18/21 00:40 112 H 21 86/63 L 77 L 11/18/21 00:35 113 H 20 102/70 77 L 11/18/21 00:30 114 H 22 84/68 L 77 L 11/18/21 00:25 115 H 21 87/68 L 76 L 11/18/21 00:20 116 H 21 88/64 L 75 L 11/18/21 00:15 37.7 C H 119 H 21 97/61 L 74 L 11/18/21 00:10 120 H 21 88/64 L 74 L 11/18/21 00:05 120 H 22 87/64 L 74 L 11/18/21 00:00 121 H 22 92/65 L 74 L 11/17/21 23:55 122 H 20 84/65 L 72 L 11/17/21 23:50 124 H 20 83/65 L 71 L 11/17/21 23:45 125 H 20 93/67 L 71 L 11/17/21 23:40 125 H 21 98/66 L 70 L 11/17/21 23:35 128 H 20 97/69 L 68 L 11/17/21 23:30 130 H 21 90/71 L 67 L 11/17/21 23:25 130 H 21 105/68 61 L 11/17/21 23:20 131 H 20 92/73 L 61 L 11/17/21 23:15 131 H 21 103/74 60 L 11/17/21 23:11 38.2 C H 11/17/21 23:10 132 H 17 97/76 L 59 L 11/17/21 23:05 133 H 20 101/81 59 L 11/17/21 23:00 134 H 20 105/72 58 L 11/17/21 22:55 135 H 21 108/76 57 L 11/17/21 22:50 135 H 20 108/74 56 L 11/17/21 22:45 135 H 104/73 54 L 11/17/21 22:40 135 H 20 104/75 54 L 11/17/21 22:35 137 H 20 107/75 54 L 11/17/21 22:30 138 H 20 104/74 54 L 11/17/21 22:25 137 H 110/75 54 L 11/17/21 22:20 139 H 20 106/72 54 L 11/17/21 22:15 140 H 20 107/77 55 L 11/17/21 22:10 140 H 20 110/77 54 L 11/17/21 22:05 140 H 20 110/70 54 L 11/17/21 22:00 141 H 20 107/75 55 L 11/17/21 21:55 141 H 20 116/72 55 L 11/17/21 21:00 39.7 C H 145 H 20 144/82 H 65 L Laboratory Results Abnormal lab results 11/17/21 11/17/21 11/17/21 Range/Units 16:52 17:26 22:02 WBC (4.8-10.8) K/uL RBC (4.7-6.1) M/uL Hgb (14.0-18.0) g/dL RDW Std Deviation (36.4-46.3) fL Neut # (Auto) (1.4-6.5) K/uL Rice # (Auto) (0.11-0.59) K/uL Immature Gran # (Auto) (0.00-0.02) K/uL POC pH 7.33 L (7.35-7.45) POC pCO2 47 H (35-46) mmHg POC pO2 41 L (80-95) mmHg POC HCO3 25 H (19-24) adri/L ABG pH (Temp Correct) 7.288 L (7.35-7.45) ABG pCO2 (Temp Corrct 53 H (35-46) mmHg POC ABG O2 Sat 72.0 L (90-95) % POC Sodium 134 L (135-144) mmol/L Sodium (136-145) mmol/L POC Potassium (3.3-5.0) mmol/L Chloride (98-107) mmol/L BUN (6-23) mg/dl Creatinine (0.6-1.4) mg/dl Glucose (70-99) mg/dl POC Glucose (other) 105 H 175 H (70-99) mg/dl Calcium (8.5-10.1) mg/dl Phosphorus (2.5-4.9) mg/dl C-Reactive Protein (0-5.00) mg/dl Procalcitonin (0-0.5) ng/ml Ur Leukocyte Esterase (Negative) Urine WBC (Auto) (0-5) /hpf Urine RBC (Auto) (0-4) /hpf U Epithel Cells (Auto) (0-5) /lpf Urine Bacteria (Auto) (Negative) 11/17/21 11/18/21 11/18/21 Range/Units Unknown 03:26 03:39 WBC (4.8-10.8) K/uL RBC (4.7-6.1) M/uL Hgb (14.0-18.0) g/dL RDW Std Deviation (36.4-46.3) fL Neut # (Auto) (1.4-6.5) K/uL Rice # (Auto) (0.11-0.59) K/uL Immature Gran # (Auto) (0.00-0.02) K/uL POC pH 7.07 L* (7.35-7.45) POC pCO2 83 H (35-46) mmHg POC pO2 55 L (80-95) mmHg POC HCO3 (19-24) adri/L ABG pH (Temp Correct) 7.086 L* (7.35-7.45) ABG pCO2 (Temp Corrct 79 H (35-46) mmHg POC ABG O2 Sat 73.0 L (90-95) % POC Sodium 127 L (135-144) mmol/L Sodium (136-145) mmol/L POC Potassium (3.3-5.0) mmol/L Chloride (98-107) mmol/L BUN (6-23) mg/dl Creatinine (0.6-1.4) mg/dl Glucose (70-99) mg/dl POC Glucose (other) 159 H (70-99) mg/dl Calcium (8.5-10.1) mg/dl Phosphorus (2.5-4.9) mg/dl C-Reactive Protein (0-5.00) mg/dl Procalcitonin (0-0.5) ng/ml Ur Leukocyte Esterase 1+ H (Negative) Urine WBC (Auto) 10-30 H (0-5) /hpf Urine RBC (Auto) 5-10 H (0-4) /hpf U Epithel Cells (Auto) 10-20 H (0-5) /lpf Urine Bacteria (Auto) 1+ H (Negative) 11/18/21 11/18/21 11/18/21 Range/Units 05:13 06:52 07:18 WBC 34.18 H* (4.8-10.8) K/uL RBC 4.28 L (4.7-6.1) M/uL Hgb 13.8 L (14.0-18.0) g/dL RDW Std Deviation 48.2 H (36.4-46.3) fL Neut # (Auto) 29.34 H (1.4-6.5) K/uL Rice # (Auto) 2.89 H (0.11-0.59) K/uL Immature Gran # (Auto) 0.50 H (0.00-0.02) K/uL POC pH 7.10 L* 7.04 L* (7.35-7.45) POC pCO2 79 H 91 H (35-46) mmHg POC pO2 < 32 L 65 L (80-95) mmHg POC HCO3 25 H 25 H (19-24) adri/L ABG pH (Temp Correct) 7.105 L* 7.045 L* (7.35-7.45) ABG pCO2 (Temp Corrct 77 H 90 H (35-46) mmHg POC ABG O2 Sat 39.0 L 79.0 L (90-95) % POC Sodium 126 L 127 L (135-144) mmol/L Sodium (136-145) mmol/L POC Potassium (3.3-5.0) mmol/L Chloride (98-107) mmol/L BUN (6-23) mg/dl Creatinine (0.6-1.4) mg/dl Glucose (70-99) mg/dl POC Glucose (other) (70-99) mg/dl Calcium (8.5-10.1) mg/dl Phosphorus (2.5-4.9) mg/dl C-Reactive Protein (0-5.00) mg/dl Procalcitonin (0-0.5) ng/ml Ur Leukocyte Esterase (Negative) Urine WBC (Auto) (0-5) /hpf Urine RBC (Auto) (0-4) /hpf U Epithel Cells (Auto) (0-5) /lpf Urine Bacteria (Auto) (Negative) 11/18/21 11/18/21 11/18/21 Range/Units 07:18 07:18 07:27 WBC (4.8-10.8) K/uL RBC (4.7-6.1) M/uL Hgb (14.0-18.0) g/dL RDW Std Deviation (36.4-46.3) fL Neut # (Auto) (1.4-6.5) K/uL Rice # (Auto) (0.11-0.59) K/uL Immature Gran # (Auto) (0.00-0.02) K/uL POC pH (7.35-7.45) POC pCO2 (35-46) mmHg POC pO2 (80-95) mmHg POC HCO3 (19-24) adri/L ABG pH (Temp Correct) (7.35-7.45) ABG pCO2 (Temp Corrct (35-46) mmHg POC ABG O2 Sat (90-95) % POC Sodium (135-144) mmol/L Sodium 125 L (136-145) mmol/L POC Potassium (3.3-5.0) mmol/L Chloride 92 L (98-107) mmol/L BUN 26 H (6-23) mg/dl Creatinine 1.44 H D (0.6-1.4) mg/dl Glucose 146 H (70-99) mg/dl POC Glucose (other) 150 H (70-99) mg/dl Calcium 7.6 L (8.5-10.1) mg/dl Phosphorus 8.0 H D (2.5-4.9) mg/dl C-Reactive Protein 32.44 H (0-5.00) mg/dl Procalcitonin > 200.00 H (0-0.5) ng/ml Ur Leukocyte Esterase (Negative) Urine WBC (Auto) (0-5) /hpf Urine RBC (Auto) (0-4) /hpf U Epithel Cells (Auto) (0-5) /lpf Urine Bacteria (Auto) (Negative) 11/18/21 11/18/21 Range/Units 09:36 10:09 WBC (4.8-10.8) K/uL RBC (4.7-6.1) M/uL Hgb (14.0-18.0) g/dL RDW Std Deviation (36.4-46.3) fL Neut # (Auto) (1.4-6.5) K/uL Rice # (Auto) (0.11-0.59) K/uL Immature Gran # (Auto) (0.00-0.02) K/uL POC pH 7.10 L* 7.10 L* (7.35-7.45) POC pCO2 80 H 79 H (35-46) mmHg POC pO2 57 L 55 L (80-95) mmHg POC HCO3 25 H 25 H (19-24) adri/L ABG pH (Temp Correct) 7.102 L* 7.096 L* (7.35-7.45) ABG pCO2 (Temp Corrct 80 H 80 H (35-46) mmHg POC ABG O2 Sat 76.0 L 74.0 L (90-95) % POC Sodium 124 L 124 L (135-144) mmol/L Sodium (136-145) mmol/L POC Potassium 5.8 H 5.1 H (3.3-5.0) mmol/L Chloride (98-107) mmol/L BUN (6-23) mg/dl Creatinine (0.6-1.4) mg/dl Glucose (70-99) mg/dl POC Glucose (other) (70-99) mg/dl Calcium (8.5-10.1) mg/dl Phosphorus (2.5-4.9) mg/dl C-Reactive Protein (0-5.00) mg/dl Procalcitonin (0-0.5) ng/ml Ur Leukocyte Esterase (Negative) Urine WBC (Auto) (0-5) /hpf Urine RBC (Auto) (0-4) /hpf U Epithel Cells (Auto) (0-5) /lpf Urine Bacteria (Auto) (Negative) Diagnostic Findings Chest X-Ray 11/17/21 16:38 XR chest 1V portable at 4:46 PM CLINICAL HISTORY: worsening hypoxia. Follow-up airspace opacities COMPARISON STUDY: 11/17/2021 at 6:51 AM TECHNIQUE: 1 view of the chest FINDINGS: Single frontal view of the chest demonstrates the cardiomediastinal silhouette to be within normal limits. Tubes and catheters are unchanged. Compared to the previous examination, there has been significant interval worsening of interstitial and alveolar opacities, left greater than right. The findings are most characteristic of worsening Covid pneumonia. There is no evidence for pleural effusion. There is no evidence for vascular congestion. There is no acute osseous pathology. IMPRESSION: Interval increase in bilateral interstitial and alveolar opacities, left greater than right. Findings are characteristic of worsening Covid pneumonia. ACT 112: Negative or not required by law. Electronically signed by: Tyson Bates M.D. 11/17/2021 5:36 PM Chest X-Ray 11/18/21 06:00 XR chest 1V portable CLINICAL HISTORY: Respiratory failure. COMPARISON STUDY: Chest radiograph November 17, 2021. FINDINGS: Tip of endotracheal tube is 5.4 cm above the irene. Left subclavian central line remains in place. Tip of nasogastric tube projects over the distal stomach or proximal duodenum. No pneumothorax is present. There is a small left pleural effusion. Extensive bilateral airspace opacities, greater within the left lung, are similar to prior exam. There is underlying emphysema. IMPRESSION: 1. No significant change in extensive bilateral airspace opacities. 2. Satisfactory positioning of lines and tubes. 3. Small left pleural effusion. ACT 112: Negative or not required by law. Electronically signed by: Eldon Dickens M.D. 11/18/2021 8:04 AM Coding Level of Care Code Critical Care 1st 30-74 mins Diagnoses ARDS (adult respiratory distress syndrome) J80 Pneumonia due to 2019 novel coronavirus U07.1; J12.82 COPD (chronic obstructive pulmonary disease) J44.9 Hypercapnic respiratory failure J96.92 Septic shock A41.9; R65.21
[2021-11-18] MEDS: ICU ELECTROLYTE REPLACEMENT PROTOCOL SCH ×2 (09:56→18:40)
[2021-11-18] MEDS ORDERED: levoFLOXacin/D5W 750 MG/150 ML BAG IV SCH (10:00)
[2021-11-18 10:29] LABS: iSTAT Art Bld Gas pCO2 Correct 80 mmHg (35-46); iSTAT Art Bld Gas pH Corrected 7.102 (7.35-7.45); iSTAT Arterial Blood Gas HCO3 25 meg/L (19-24); iSTAT Arterial Blood Gas pCO2 80 mmHg (35-46); iSTAT Arterial Blood Gas pO2 57 mmHg (80-95); iSTAT Arterial Blood Gas pO2 C 57; iSTAT Carbon Dioxide 27 mmol/L (24-31); iSTAT FiO2 100 %; iSTAT Hematocrit 44 % (42-52); iSTAT Potassium 5.8 mmol/L (3.3-5.0); iSTAT Site Art Line; iSTAT Sodium 124 mmol/L (135-144)
[2021-11-18 10:29] LABS: iSTAT Allen Test Pass; iSTAT Art Bld Gas pCO2 Correct 80 mmHg (35-46); iSTAT Art Bld Gas pH Corrected 7.096 (7.35-7.45); iSTAT Arterial Blood Gas HCO3 25 meg/L (19-24); iSTAT Arterial Blood Gas pCO2 79 mmHg (35-46); iSTAT Arterial Blood Gas pO2 55 mmHg (80-95); iSTAT Arterial Blood Gas pO2 C 56; iSTAT Carbon Dioxide 27 mmol/L (24-31); iSTAT Hematocrit 44 % (42-52); iSTAT Potassium 5.1 mmol/L (3.3-5.0); iSTAT Site L Radial; iSTAT Sodium 124 mmol/L (135-144)
[2021-11-18] MEDS: ACETAMINOPHEN SUSP 325 MG/10.15 ML UDC PO PRN (10:57)
[2021-11-18] MEDS ORDERED: SODIUM BICARB 8.4% INJ 50 MEQ/50 ML SYR IV STA (12:15)
[2021-11-18] MEDS ORDERED: SODIUM BICARB 8.4% INJ 50 MEQ/50 ML SYR IV ONE (12:18)
[2021-11-18] MEDS ORDERED: VECURONIUM BROMIDE 10 MG VIAL IV STA (12:29)
[2021-11-18] MEDS ORDERED: VECURONIUM BROMIDE 10 MG VIAL IV ONE (12:30)
[2021-11-18] MEDS ORDERED: CALCIUM GLUCONATE 10% 2,000 MG in DEXTROSE 5% 50 ML IV ONE (12:30)
[2021-11-18] MEDS ORDERED: STAT IV STA (12:30)
[2021-11-18] MEDS ORDERED: CALCIUM GLUCONATE 10% 1,000 MG in DEXTROSE 5% 50 ML IV ONE (12:45)
--- NOTE | 2021-11-18 18:24 | Hospitalist Progress Note ---
Date of Service November 18, 2021 Assessment & Plan (1) Drug overdose: Plan: Patient Presented after overdose on Depakote (4 tablets of 500mg) and Abilify (2 tablets) and was found to be hypoxia Less likely intentional after discussed with his brother Bean by prior hospitalist Depakote level:25>32>30 EKG showed no QTC prolongation Poison control was contacted by prior hospitalist Case discussed with psych Dr. Brito Resumed Depakote and Abilify Suicidal precautions Monitor (2) Pneumonia due to 2019 novel coronavirus: Plan: Acute respiratory failure with hypoxia/Hypercapnia COVID-19 pneumonia Adult respiratory distress syndrome Septic Shock H/O COPD Patient is unvaccinated Tested positive for COVID-19 on admission. -CTA chest showed no PE. Bilateral multilobar subpleural groundglass densities are compatible with viral pneumonia. Mild mediastinal and hilar adenopathy, likely reactive. Patient declined remdesivir (Patient's brother to discussed and agreed with pt decision) CRP 10>9.86 --S/P intubation on 11/16/20 Appreciate Log Chain Feeder Help Vent management as per Log Chain Feeder Continue dexamethasone Pulmonary Hygiene Lasix as needed Febrile today Empirically on Zosyn Blood, Urine, Sputum cultures pending Currently on 14 PEEP, 100% FiO2 On pressors --Levophed, vasopressin Critically ill, very poor prognosis Leukocytosis, CRP worsening Family to discuss goals of care Constipation Continue bowel regimen Pancytopenia Likely secondary to COVID-19 infection Doubt due to Depakote toxicity Pancytopenia resolved Bipolar disorder Seizure On Abilify and Depakote Elevated D-dimer Mostly due to COVID-19 CTA chest showed no PE Thrombocytopenia Platelet 107>300s Resolved DVT Px: Lovenox SQ CODE STATUS DNR Disposition Family :Brother Bean ([phone]) Admission and Anticipated Discharge Date Admission Date: November 04, 2021 Subjective Patient is seen and examined at bedside Clinically deteriorating Currently on 2 pressors On 14 PEEP, 100% FiO2 On tube feeds Febrile today Chest x-ray today showed no significant change in extensive bilateral airspace opacities Critically ill Review of Systems Review of Systems: Unobtainable due to endotracheal tube Physical Exam Physical Exam: Physical Exam: Vitals signs as noted above General Appearance: Ill-appearing, sedated and Intubated Head: normocephalic, Atraumatic Eyes: normal inspection, EOMI Neck: supple, Trachea midline Respiratory/Chest: Decreased breath sounds, basal crackles, wheezes Cardiovascular: S1, S2, No murmur Abdomen/GI:Soft, Non tender, Bowel sounds present Extremities/Musculoskeletal:normal inspection, no edema Neurologic/Psych:+ legally blind, sedated and Intubated Skin: normal color, warm Results & Data Results & Data ([facility]) Vital Signs (Past 12 Hours) Vital Signs Temp Pulse Resp BP Pulse Ox 11/18/21 17:54 101 H 11/18/21 17:00 37.6 C H 98 H 30 H 118/81 91 11/18/21 16:30 102 H 30 H 90 11/18/21 16:15 102 H 30 H 120/64 91 11/18/21 16:00 37.9 C H 102 H 30 H 104/71 90 11/18/21 15:45 103 H 30 H 113/65 91 11/18/21 15:30 104 H 30 H 104/68 90 11/18/21 15:15 104 H 30 H 91/70 L 90 11/18/21 15:11 90 30 H 91 11/18/21 15:00 37.8 C H 103 H 30 H 94/74 L 91 11/18/21 14:45 37.8 C H 101 H 30 H 115/64 90 11/18/21 14:30 37.6 C H 101 H 30 H 98/68 L 91 11/18/21 14:00 37.4 C 98 H 30 H 103/73 90 11/18/21 13:30 37.4 C 100 H 30 H 117/71 88 L 11/18/21 13:20 37.4 C 102 H 30 H 88 L 11/18/21 13:00 37.4 C 102 H 30 H 100/74 87 L 11/18/21 12:50 37.3 C 101 H 30 H 115/69 87 L 11/18/21 12:30 37.4 C 97 H 30 H 123/77 89 L 11/18/21 12:10 37.3 C 101 H 30 H 90/66 L 88 L 11/18/21 12:00 37.4 C 100 H 28 H 96/67 L 87 L 11/18/21 11:30 37.4 C 101 H 27 H 96/70 L 90 11/18/21 11:12 90 30 H 89 L 11/18/21 11:00 37.3 C 98 H 28 H 101/70 89 L 11/18/21 10:30 37.3 C 97 H 30 H 105/67 89 L 11/18/21 10:00 37.2 C 96 H 27 H 103/67 88 L 11/18/21 09:50 37.1 C 94 H 24 99/68 L 88 L 11/18/21 09:45 95/69 L 11/18/21 09:30 37.0 C 91 H 29 H 106/68 89 L 11/18/21 09:25 36.9 C 91 H 24 107/74 89 L 11/18/21 08:17 90 31 H 88 L 11/18/21 06:35 36.7 C 91 H 27 H 90/66 L 90 11/18/21 06:30 36.7 C 90 28 H 100/61 90 11/18/21 06:25 36.7 C 90 33 H 83/67 L 91 Laboratory Results Short CBC 11/18/21 Range/Units 07:18 WBC 34.18 H* (4.8-10.8) K/uL Hgb 13.8 L (14.0-18.0) g/dL Hct 42.4 (42-52) % Plt Count 289 (130-400) K/uL BMP 11/18/21 07:18 Sodium 125 L Potassium 4.5 Chloride 92 L Carbon Dioxide 25 BUN 26 H Creatinine 1.44 H D Glucose 146 H Calcium 7.6 L (1) Drug overdose Encounter type: initial encounter Injury intent: undetermined intent Qualified Code(s): T50.904A - Poisoning by unspecified drugs, medicaments and biological substances, undetermined, initial encounter
--- NOTE | 2021-11-18 18:50 | Communication Note ---
Date of Service: November 18, 2021 Discussed with brother Bean earlier today further regarding his brother's current state with inability to vetilate/oxygenate and worsening of septic flo ck. Son and Brother were to come in to see patient and transition to palliative extubation. Son is at bedside at this time. I reviewed his father's case with him, we reviewed but not limited to the following; his acid base status, further organ dysfunction, and need for 2 vasopressor medications to keep his blood pressure up. He is in agreement that his dad would not want to be kept alive on life support further and would like to transition to palliative extubation. He wants his dad to remain comfortable through the process and not be in pain or struggle to breathe. We are waiting for Bean(the brother) to let us know if he can make it to the hospital to be with his brother, this will be soon per the Son. When the family is ready will transition to palliative extubation to include discontinuation of his vasopressor support. Jay ARROOY (ACNP-) Coding Level of Care Code None
[2021-11-18] MEDS ORDERED: GLYCOPYRROLATE 0.2 MG/ML VIAL IV PRN (19:52)
[2021-11-18] MEDS ORDERED: ONDANSETRON INJ 2 MG/ML 2 ML VIAL IV PRN (19:52)
[2021-11-18] MEDS ORDERED: LORazepam 2 MG/4 ML VIAL IV PRN (19:52)
[2021-11-18] MEDS ORDERED: LORazepam 0.5 MG/1 ML VIAL IV PRN (19:52)
[2021-11-18] MEDS ORDERED: MoRPHine SULFATE 5 MG/0.25 ML UDP NG PRN (19:52)
[2021-11-18] MEDS ORDERED: MoRPHine SULFATE 4 MG/ML 1 ML CARP\\VIAL IV PRN (20:12)
--- NOTE | 2021-11-18 22:56 | Death Pronouncement Note ---
Date of Service November 18, 2021 Pronouncement Note Admission Date Admission Date: November 04, 2021 PRONOUNCEMENT NOTE - Date: 11/18/2021 Time: 2230 I was contacted by nursing staff regarding the patients declining status and concerns for imminent demise. In short, The patient is 61 YOM that was originally admitted for overdose concern and subsequently found to have COVID. intubation Day #3 Hospital day #14 for hypoxic respiratory failure from COVID 19 pneumonia. Patient also with severe emphysema, Patient developed septic shock on 11/17 and was started on Zosyn. 11/18/21 his WBC up to 34 and PCT >200, added on Levaquin to therapy. Patient remains requiring high levels of PEEP and Fio2 and did not improve with Flolan, he is acidotic and hypercarbic. He remained crticially ill and showing evidence of organ dysfuncntion this morning. Family made decision to withdraw care and pursue comfort measures this evening. Assessment: I presented to the patients room for evaluation. Upon assessment, the patient was found to be in a terminal state. Pupils were fixed and dilated without response. No palpable pulses appreciated. No spontaneous breaths noted. Heart sounds were absent. No response to painful stimuli. Time of : 2229 as pronounced by myself. Family present at bedside. Appropriate response to grief appreciated. Patients primary service was contacted and made aware of patient demise. Cause of : Primary -COVID-19 pneumonia Secondary -sepsis Contributing Causes of -COPD Please feel free to contact me with any questions regarding the above-mentioned course. Contributing Factors (1) Pneumonia due to 2019 novel coronavirus: Additional Data Attending physician: Tate Royal MD Coding Level of Care Code None Diagnoses Pneumonia due to 2019 novel coronavirus U07.1; J12.82
[2021-11-19] MEDS ORDERED: VANCOMYCIN TROUGH ONE (05:30)
--- NOTE | 2021-11-19 07:23 | Discharge Summary ---
Date of Service November 19, 2021 Admission HPI Per Admitting Provider 61 year old male with PMH- bipolar disorder, narcissistic personality disorder, multiple prior episodes of overdoses with last admission in 2005 for overdose of Seroquel and prior overdoses of lithium and Tegretol who presents emergency department after overdose from Depakote and Abilify. History obtained from ER document, nurse, ER physician since patient is a poor historian. I called his brother 3 times, phone kept ringing with no one answered. Patient was given 4 tablets Depakote 500 mg and 2 tablets of Abilify. As per nursing staff his brother fills his pillbox since pt is blind. Ptforgot to take his medications yesterday.Brother did not notice that he missed taking yesterday medication and filled his pillbox. Pt took yesterday medications in combination with today. When arrived in the ER he was found to be hypoxia with oxygen level in the 80s. He denies any upper respiratory infection such as shortness of breath, cough, runny nose or fever. He was tested positive in the ER for COVID-19. Nurse said his brother at home sounded very sick over the phone. Patient denies any chest pain, palpitation, suicidal ideation or any thoughts to hurt others. Admission Exam Per Admitting Provider Physical Exam Physical Exam: General- No acute distress Head- atraumatic Eyes-+legally blind ENT- oropharynx clear Neck- supple, no JVD Lungs- +diminished breath sound Heart- regular rhythm; no murmur Abdomen- normal bowel sounds, soft, nontender Extremities- no calf tenderness Neuro- alert, oriented x 3; PERRL, EOMI; no facial palsy; no dysarthria Skin- warm & dry Principal Diagnosis Acute respiratory failure with hypoxia/Hypercapnia COVID-19 pneumonia Adult respiratory distress syndrome Septic Shock COPD Accidental drug overdose Discharge Data Allergies Allergy/AdvReac Type Severity Reaction Status Date / Time No Known Allergies Allergy Unknown Verified 11/04/21 15:54 Consultations 11/04/21 14:01 ED Decision to Admit Stat 11/16/21 09:59 Consult Chief Procurement Officer Routine Ordered Studies 11/04/21 21:36 CT angio chest PE protocol Urgent Hospital Course (1) Drug overdose: Patient Presented after overdose on Depakote (4 tablets of 500mg) and Abilify (2 tablets) and was found to be hypoxia Less likely intentional after discussed with his brother Bean by prior hospitalist Depakote level:25>32>30 EKG showed no QTC prolongation Poison control was contacted by prior hospitalist Case discussed with psych Dr. Brito Resumed Depakote and West Suicidal precautions Monitor (2) Pneumonia due to 2019 novel coronavirus: Acute respiratory failure with hypoxia/Hypercapnia COVID-19 pneumonia Adult respiratory distress syndrome Septic Shock H/O COPD Patient is unvaccinated Tested positive for COVID-19 on admission. -CTA chest showed no PE. Bilateral multilobar subpleural groundglass densities are compatible with viral pneumonia. Mild mediastinal and hilar adenopathy, likely reactive. Patient declined remdesivir (Patient's brother to discussed and agreed with pt decision) CRP 10>9.86 --S/P intubation on 11/16/20 Appreciate Chief Procurement Officer Help Vent management as per Chief Procurement Officer Continue dexamethasone Pulmonary Hygiene Lasix as needed Febrile today Empirically on Zosyn Blood, Urine, Sputum cultures pending Currently on 14 PEEP, 100% FiO2 On pressors --Levophed, vasopressin Critically ill, very poor prognosis Leukocytosis, CRP worsening Family to discuss goals of care As per ICU team: Date of Service: November 18, 2021 Discussed with brother Bean earlier today further regarding his brother's current state with inability to vetilate/oxygenate and worsening of septic shock. Son and Brother were to come in to see patient and transition to palliative extubation. Son is at bedside at this time. I reviewed his father's case with him, we reviewed but not limited to the following; his acid base status, further organ dysfunction, and need for 2 vasopressor medications to keep his blood pressure up. He is in agreement that his dad would not want to be kept alive on life support further and would like to transition to palliative extubation. He wants his dad to remain comfortable through the process and not be in pain or struggle to breathe. We are waiting for Bean(the brother) to let us know if he can make it to the hospital to be with his brother, this will be soon per the Son. When the family is ready will transition to palliative extubation to include discontinuation of his vasopressor support. Jay ARROYO ([facility] Assessment: I presented to the patients room for evaluation. Upon assessment, the patient was found to be in a terminal state. Pupils were fixed and dilated without response. No palpable pulses appreciated. No spontaneous breaths noted. Heart sounds were absent. No response to painful stimuli. Time of : 2229 as pronounced by myself. Family present at bedside. Appropriate response to grief appreciated. Patients primary service was contacted and made aware of patient demise. Cause of : Primary -COVID-19 pneumonia Secondary -sepsis Contributing Causes of -COPD Please feel free to contact me with any questions regarding the above-mentioned course. Electronically signed by Beni ARROYO Constipation Continue bowel regimen Pancytopenia Likely secondary to COVID-19 infection Doubt due to Depakote toxicity Pancytopenia resolved Bipolar disorder Seizure On Abilify and Depakote Elevated D-dimer Mostly due to COVID-19 CTA chest showed no PE Thrombocytopenia Platelet 107>300s Resolved DVT Px: Lovenox SQ CODE STATUS DNR Disposition Family :Brother Bean ([phone]) Total Time Total Time Spent Total Time Spent (In Minutes): 30 minutes Discharge Plan Discharge Items Patient Disposition: Discharge Diagnosis: Acute respiratory failure with hypoxia/Hypercapnia COVID-19 pneumonia Adult respiratory distress syndrome Septic Shock COPD Other Date/Time: 11/18/21 22:20
[2021-11-20 11:34] LABS: C Reactive Protein 9.86 mg/dl (0-0.5)
[2021-11-20 12:36] LABS: C Reactive Protein 32.44 mg/dl (0-0.5)
== END 2021-11-18 22:20 | disposition expired | DRG 208 ==
LOC: ED 11:20 → SUATTDRO 16:04 → EDINP 16:04 → 2W 11-05 20:29 → 2E 11-16 09:23